=== PATIENT | female | born 1950 | race Caucasian/White ===

== ENCOUNTER → 2016-11-23 | Outpatient (CLI) | payer MEDICARE, MEDICAID ==
[~2016-11-23] MED LIST: AC325T PO; AMLO10TA PO; ASP325T PO; ASP325TEC PO; ASP81CT PO; ASP81TEC PO; ASPI-892 PO; ASPI1CPM PO; ATOR20TA66 PO; ATOR40TA PO; ATOR80TA2 PO; Amlodipine Besylate PO; BISA5TAB8 PO; CLOP75TA28 PO; CLPD75T PO; CTLP20T; CYCL5TAB PO; DICY20TA10 PO; ENLP10T PO; ESCI20TA PO; ESCI20TA2 PO; ESCI20TA38 PO; EST.625T; EST1.25T PO; ESTR0.9T PO; ESTR1TAB24 PO; FLUT1DIS27 IH; FLUT1DIS4 IH; GLIP10TA13 PO; HYDR-3714 PO; HYDR-3816 PO; HYDR118S10 PO; HYDR25CA PO; HYDR25CA5 PO; IBP600T1 PO; IPRA3AMP11 INH; IRB150T PO; IRBE300T9 PO; LEVO200T30 PO; LVT.1T PO; MAGN-47 PO; MAGN400T6 PO; MECL-124 PO; MELO7.5T46 PO; METF500T4 PO; METO-272 PO; METO50TA7 PO; MONT10TA21 PO; MTP25TSR PO; NF-ESOM40C PO; NFPRILOC40 PO; OMEP-10 PO; ONDA-42 SL; ONDA4TAB11 PO; PANT40TA PO; PEG4000S4 PO; PNT40TEC PO; PRED20TA PO; PROM25TA14 PO; RT-COMBINH IH; SCOP1PAT TD; SCP1.5TD TD; TRAM50TA2 PO; TRAZ-144 PO; TRZ50T PO; ZLP10T PO
--- OUTSIDE RECORDS SUMMARY | 2016-11-23 13:58 | XMS REPORT | Continuity of Care Document ---
Author Author [facility] Organization [facility] Address Unknown Phone Unavailable Care Team Providers Care Internet Architect Name Role Phone Self, Referral PCP Unavailable Source Comments Some departments are not documenting in the electronic medical record. If you do not see the information that you expected, contact Release of Information in the Health Information Management department at [phone] for further assistance in locating additional records.[facility] Active Allergies and Adverse Reactions No Known Allergies Current Medications Prescription Sig. Disp. Refills Start End Date Status Date irbesartan (AVAPRO) 300 Take 300 mg by mouth at Active mg PO tablet bedtime daily. omeprazole DR(+) Take 20 mg by mouth Active (PRILOSEC) 20 mg PO daily. capsule escitalopram (LEXAPRO) 10 Take 20 mg by mouth Active mg PO tablet daily. aspirin 81 mg PO chew Take 81 mg by mouth Active tablet daily. estradiol (ESTRACE) 1 mg Take 1 mg by mouth daily. Active PO tablet HYDROCODONE Take by mouth four times Active BIT/HOMATROPINE a day while awake as (HYDROCODONE COMPOUND PO) needed. 7.5/325 mg ZOLPIDEM TARTRATE (AMBIEN Take 10 mg by mouth at Active PO) bedtime daily. Active Problems Not on file Social History Tobacco Use Types Packs/Day Years Used Date Never Assessed Last Filed Vital Signs Vital Sign Reading Time Taken Blood Pressure 144/92 06/03/2011 3:15 PM CDT Pulse 87 06/03/2011 3:15 PM CDT Temperature 36.4 C (97.5 F) 06/03/2011 1:15 PM CDT Respiratory Rate - - Height 1.626 m (5' 4") 06/03/2011 1:15 PM CDT Weight 81.647 kg (180 lb) 06/03/2011 1:15 PM CDT Body Mass Index 30.88 06/03/2011 1:15 PM CDT Oxygen Saturation 99% 06/03/2011 3:15 PM CDT Plan of Care Health Maintenance Due Date Last Done Comments Physical (Comprehensive) 1955 Exam Pertussis Vaccine 1959 Tetanus Vaccine 1965 Breast Cancer Screening 1988 Colorectal Cancer 1998 Screening Shingles Vaccine 2008 Osteoporosis Screening 2013 Prevnar/Pneumovax (#1) 2013 Influenza Vaccine 05/07/2016 Results from Last 3 Months Not on file
--- NOTE | 2016-11-23 14:37 | Diagnostic Imaging Report ---
EXAMINATION: Right lower extremity duplex venous ultrasound. TECHNIQUE: DVT protocol. Multiple sonographic images with color Doppler and waveform interrogation were performed of the right lower extremity veins with compression and augmentation maneuvers. INDICATION: Right leg pain. FINDINGS: The right lower extremity veins from the groin to below the knee veins were examined with normal color-flow, compressibility and normal waveform demonstrated. The great saphenous vein is patent. IMPRESSION: No evidence of DVT in the right lower extremity. Dictated by: Dictated on workstation # [id number]
== END ==
LOC: RAD 13:55
PROVIDERS: ATTEND Physician Assistant
DX: M79.661 Pain in right lower leg (principal); I63.8 Other cerebral infarction; R07.9 Chest pain, unspecified; I10 Essential (primary) hypertension; E78.2 Mixed hyperlipidemia

== ENCOUNTER 2016-12-29 12:58 | Emergency (ER) | payer MEDICARE, MEDICAID ==
[~2016-12-29] VITALS: Ht 165.1 cm; Wt 81.6 kg
[~2016-12-29 12:58] MED LIST changes: -CYCL5TAB PO; -MELO7.5T46 PO; -TRAM50TA2 PO
--- NOTE | 2016-12-29 13:37 | ED Fall/Injury ---
General Chief Complaint: Trauma-Non Activation Stated Complaint: FALL BACK/LEG/HEAD INJURY Nursing Triage Note: Pt abulated into ed with daughter without difficulty. Pt states she fell in her bathtub and hit the back of her head. pt complains of head, neck, right leg pain. denies loss of conciousness. Pt called her daughter, daughter states she arrived about 10 minutes later. pt immediately put in c-collar and lying in supine position. Source: patient, family, RN notes reviewed Exam Limitations: no limitations History of Present Illness Time seen by provider: 13:32 Initial Comments As above and below. Denies any LOC. Occurred: other (2 days ago) Severity: severe (05/16) Injuries/Pain Location: head, neck, back, other (B/L hips) Context: slipped Modifying Factors: Worse With Movement, Improves With Rest Associated Symptoms (Fall): Headache, Neck Pain, Trouble Walking Allergies and Home Medications Allergies Coded Allergies: enalapril (Verified Allergy, Unknown, RASH, 01/21/15) morphine (Verified Allergy, Unknown, RASH, 01/21/15) pneumococcal vaccine (Verified Allergy, Unknown, 01/21/15) Home Medications Aspirin 81 Mg Tabec, 81 MG PO DAILY, (Reported) Atorvastatin Calcium 80 Mg Tablet, 40 MG PO DAILY, (Reported) Clopidogrel Bisulfate 75 Mg Tablet, 75 MG PO DAILY, (Reported) Cyclobenzaprine HCl 5 Mg Tablet, 5 MG PO Q8H PRN for SPASMS, #30 Ref 0 Prescribed by: YOEL SENA on 12/29/16 1513 Escitalopram Oxalate 20 Mg Tablet, 20 MG PO DAILY, (Reported) Fluticasone/Salmeterol 1 Each Disk.w.dev, 0 IH BID, (Reported) 1 PUFF Glipizide 10 Mg Tablet, 10 MG PO DAILY, (Reported) Hydrocodone Bit/Acetaminophen 1 Tab Tablet, 1 TAB PO QID PRN for PAIN, (Reported ) Hydroxyzine Pamoate 25 Mg Capsule, 25 MG PO Q6H, (Reported) Meloxicam 7.5 Mg Tablet, 7.5 MG PO Q12H, #30 Ref 0 Prescribed by: YOEL SENA on 12/29/16 1513 Metformin Hcl 500 Mg Tablet, 500 MG PO BID, (Reported) Metoprolol Succinate 50 Mg Tab.sr.24h, 50 MG PO DAILY, (Reported) Pantoprazole Sodium 40 Mg Tablet.dr, 40 MG PO DAILY, (Reported) Promethazine HCl 25 Mg Tablet, 25 MG PO Q6H PRN for NAUSEA/VOMITING, #10 Prescribed by: RUSSELL SMITH on 05/31/16 1247 Tramadol HCl 50 Mg Tablet, 50 MG PO Q6H PRN for break fhru pain, #20 Ref 0 Prescribed by: YOEL SENA on 12/29/16 1514 Trazodone Hcl 50 Mg Tablet, 50 MG PO HS, (Reported) Constitutional: see HPI Ears, Nose, Mouth, Throat: see HPI ((+) posterior head pain) : No Musculoskeletal: see HPI, back pain, neck pain, other (B/L hip pain) Psychiatric/Neurological: See HPI, Headache All Other Systems Reviewed Negative Unless Noted: Yes (Negative excepted noted.) Past [id number]-Zyuscm-Olygsb Hx Patient Social History Alcohol Use: Denies Use Recreational Drug Use: No Smoking Status: Never a Smoker Former Smoker/When Quit: May 30, 1970 2nd Hand Smoke Exposure: No Recent Foreign Travel: No Contact w/Someone Who Travel: No Recent Infectious Disease Expo: No Recent Hopitalizations: Yes Immunizations Up To Date Tetanus Booster (TDap): Unknown PED Vaccines UTD: Yes Date of Pneumonia Vaccine: Feb 15, 2007 Date of Influenza Vaccine: May 22, 2012 Surgeries HX Surgeries: Yes (LINQ Reveal implantation) Surgeries: Defibrillator, Gallbladder, Hysterectomy Respiratory Hx Respiratory Disorders: Yes Respiratory Disorders: Asthma, Pneumonia Cardiovascular Hx Cardiac Disorders: Yes (cva X2, linx recording, 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) Cardiac Disorders: Deep Vein Thrombosis, High Cholesterol, Hypertension Neurological Hx Neurological Disorders: Yes (CVA with memory issues, poor vision, dizziness) Neurological Disorders: Stroke Reproductive System Hx Reproductive Disorders: Yes (HYSTERECTOMY) Sexually Transmitted Disease: No HIV/AIDS: 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 Genitourinary Hx Genitourinary Disorders: Yes Genitourinary Disorders: Kidney Infection, UTI-Chronic Gastrointestinal Hx Gastrointestinal Disorders: Yes Gastrointestinal Disorders: Gastroesophageal Reflux, Chronic Constipation, Esophageal Varices, Irritable Bowel Musculoskeletal Hx Musculoskeletal Disorders: No (BACK SURGERY) Musculoskeletal Disorders: Arthritis Endocrine Hx Endocrine Disorders: Yes Endocrine Disorders: Hypothyroidsim, Diabetes, Non-Insulin dep HEENT HX ENT Disorders: Yes ("poor vision" from CVA) Loss of Vision: Bilateral Hearing Impairment: Denies Cancer Hx Cancer: No Psychosocial Hx Psychiatric Problems: Yes Behavioral Health Disorders: Anxiety, Depression Integumentary HX Skin/Integumentary Disorder: No Blood Transfusions Hx Blood Disorders: No Adverse Reaction to a Blood Tr: No Family Medical History Significant Family History: Heart Disease, Diabetes Family Medial History: Family history: Cardiovascular disease 19 FATHER 19 MOTHER G8 BROTHER Family history: Diabetes mellitus 19 MOTHER G8 BROTHER G8 BROTHER G8 SISTER G8 SISTER G8 SISTER Physical Exam Vital Signs Capillary Refill : Less Than 3 Seconds General Appearance: WD/WN, mild distress HEENT: PERRL/EOMI, normal ENT inspection, pharynx normal Neck: tender lateral Cardiovascular: regular rate, rhythm Respiratory: no respiratory distress Rectal: deferred Back: decreased range of motion, muscle spasm, other (paravertebral tenderness cervical, thoracic, and lumbar spines (R>L)) Extremities: other (B/L greater trochanter tenderness c/ palpation; no shortening or external rotation noted of BLE.) Neurologic/Psychiatric: no motor/sensory deficits, alert, oriented x 3 Skin: warm/dry Raj Coma Score Best Eye Response: (4) Open Spontaneously Best Verbal Response: (5) Oriented Best Motor Response: (6) Obeys Commands Raj Total: 15 Progress/Results/Core Measures Results/Orders My Orders Orders - YOEL SENA DO Fentanyl Injection (Sublimaze Injection (12/29/16 13:45) Ct Head Wo (12/29/16 13:38) Ct Cerv/Thoracic/Lumbar Wo (12/29/16 13:38) Pelvis/Elton Hips 5> Views (12/29/16 13:38) Ketorolac Injection (Toradol Injection) (12/29/16 14:45) Im/Sub-Q Injection Non-Ab Ed (12/29/16 ) Medications Given in ED Vital Signs/I&O Blood Pressure Mean: 111 Diagnostic Imaging Diagonstic Imaging: Xray, CT Plain Films/CT/US/NM/MRI: c-spine (nothing acute), pelvis, hip (negative for anything acute), head Departure Impression Impression: Primary Impression: Fall Additional Impressions: Contusion of head Sprain cervical, thoracic, and lumbar spines Contusion pelvis/hips Disposition: 01 HOME, SELF-CARE Condition: Stable Departure-Patient Inst. Decision time for Depature: 15:08 Referrals: IRASEMA SMITH MD (PCP/Family) Primary Care Physician Patient Instructions: Contusion (DC), Knee Sprain (DC), Low Back Pain (DC) Scripts Tramadol HCl (Tramadol HCl) 50 Mg Tablet 50 MG PO Q6H Y for break fhru pain, #20 TAB 0 Refills Prov: YOEL SENA DO 12/29/16 Cyclobenzaprine HCl (Cyclobenzaprine HCl) 5 Mg Tablet 5 MG PO Q8H Y for SPASMS, #30 TAB 0 Refills Prov: YOEL SENA DO 12/29/16 Meloxicam (Meloxicam) 7.5 Mg Tablet 7.5 MG PO Q12H for Pain, #30 TAB 0 Refills Prov: YOEL SENA DO 12/29/16 YOEL SENA DO Dec 29, 2016 13:37
[2016-12-29] MEDS ORDERED: fentaNYL INJECTION 100 MCG/2 ML AMP IM ONE (13:45)
--- NOTE | 2016-12-29 14:26 | Diagnostic Imaging Report ---
PROCEDURE: CT head without contrast. TECHNIQUE: Multiple contiguous axial images were obtained through the brain without the use of intravenous contrast. INDICATION: Head injury from a fall There is encephalomalacic change in the left occipital lobe unchanged from prior exam dated 02/11/2016. There are no masses or hemorrhages. There are no extra-axial fluid collections. There are no skull fractures seen. 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 There is no acute abnormality seen. Dictated by: Dictated on workstation # [id number]
--- NOTE | 2016-12-29 14:43 | Diagnostic Imaging Report ---
INDICATION: Hip injury from a fall AP view pelvis and 2 views of each hip were obtained. These show no fracture, dislocation or other acute abnormalities. IMPRESSION: Negative pelvis and bilateral hips. Dictated by: Dictated on workstation # [id number]
[2016-12-29] MEDS ORDERED: KETOROLAC 30 MG/ML VIAL IM ONE (14:45)
--- NOTE | 2016-12-29 14:52 | Diagnostic Imaging Report ---
CT cervical, thoracic and lumbar spine without intravenous contrast. Axial coronal and sagittal reconstructions are performed. FINDINGS: CT cervical spine: There is reversal of the lordotic curvature. The vertebral body heights are preserved. There is disc herniation and moderate disc height loss at C3/4 level with suggested underlying spinal canal stenosis at this level. The anterior fusion hardware involving C4-C6 is seen with solid osseous fusion at these levels noted between the vertebral bodies. The facet joints are not fused. There is good alignment of the facet joints however. Remaining posterior osteophytes at the upper endplate level of C6 is seen and prominent posterior osteophytes at C6/7 is seen resulting in mild to moderate spinal canal stenosis reducing the AP dimension of the spinal canal to 8 mm. There is no widening of the predental space. There is satisfactory alignment of the lateral masses of C1 and C2 and atlantooccipital joints. No fracture is seen. CT thoracic spine: There is satisfactory alignment at the posterior spinal line and at the facet joints. The vertebral body heights are preserved. Mild degenerative changes at the endplates with Schmorl's node at multiple levels. Minimal posterior osteophytes at T6-7, T7/8 and T8/9 levels seen with no significant spinal canal stenosis suggested. No fracture is seen. CT lumbar spine: The vertebral body heights are preserved. There is no pars fracture. There is significant disc height loss at L5/S1 level. The alignment of the posterior spinal line and the facet joints is satisfactory. No fracture is seen. IMPRESSION: CT cervical spine: Post anterior fusion changes involving C4-C6 levels seen. There is suggestion of spinal canal stenosis at C3/4 and at C6/7 levels which can be better evaluated with MRI or CT myelogram if needed. No fracture is seen. CT thoracic spine: Mild degenerative changes. No fracture seen. CT lumbar spine: Disc degenerative change at L5/S1 level. No fracture is seen. Dictated by: Dictated on workstation # [id number]
[2016-12-29] MEDS ORDERED: CYCL5TAB PO (15:13)
[2016-12-29] MEDS ORDERED: MELO7.5T46 PO (15:13)
[2016-12-29] MEDS ORDERED: TRAM50TA2 PO (15:14)
[2016-12-29 15:27] VITALS: BP 147/95
== END 2016-12-29 15:27 | disposition home or self-care (01) ==
LOC: EDUNIT# 12:58 → ER 13:01
DX: S13.4XXA Sprain of ligaments of cervical spine, initial encounter (principal); S33.5XXA Sprain of ligaments of lumbar spine, initial encounter; S23.3XXA Sprain of ligaments of thoracic spine, initial encounter; S30.0XXA Contusion of lower back and pelvis, initial encounter; S00.93XA Contusion of unspecified part of head, initial encounter; M47.817 Spondylosis without myelopathy or radiculopathy, lumbosacral region; I10 Essential (primary) hypertension; E11.9 Type 2 diabetes mellitus without complications; Z79.84 Long term (current) use of oral hypoglycemic drugs; Z79.02 Long term (current) use of antithrombotics/antiplatelets; Z79.82 Long term (current) use of aspirin; Z95.810 Presence of automatic (implantable) cardiac defibrillator; W18.2XXA Fall in (into) shower or empty bathtub, initial encounter; Y92.002 Bathroom of unspecified non-institutional (private) residence as the place of occurrence of the external cause; Y93.E1 Activity, personal bathing and showering; Y99.8 Other external cause status
CPT/HCPCS: 70450; 72125; 72128; 72131; 73523; 96372; 99283

== ENCOUNTER 2017-01-18 15:40 | Emergency (ER) | payer MEDICARE, MEDICAID ==
[~2017-01-18] VITALS: Ht 165.1 cm; Wt 81.7 kg
[~2017-01-18 15:40] MED LIST changes: +CYCL5TAB PO; +MELO7.5T46 PO; +TRAM50TA2 PO
[2017-01-18] MEDS ORDERED: ONDANSETRON 4 MG/2 ML (SDV) Z0FRAN IVP ONE (15:45)
--- NOTE | 2017-01-18 15:49 | ED Abdominal Pain ---
General Chief Complaint: Dizziness/Syncope Stated Complaint: FALLS/SYNCOPE Source of Information: Patient Exam Limitations: No Limitations History of Present Illness Time Seen By Provider: 15:49 Initial Comments To ER per EMS with reports of nausea and vomiting for the past few days. She was over at the walk-in clinic when she began vomiting and subsequent passed out while vomiting. She reports some diffuse abdominal pain. She states that she is passing some gas. She took a laxative yesterday and had a large bowel movement.No fevers. Timing/Duration: 2-3 Days Severity/Quality: Moderate Location: Generalized Abdomen Radiation: No Radiation Activities at Onset: None Associated Symptoms: Nausea/Vomiting Allergies and Home Medications Allergies Coded Allergies: enalapril (Verified Allergy, Unknown, RASH, 01/21/15) morphine (Verified Allergy, Unknown, RASH, 01/21/15) pneumococcal vaccine (Verified Allergy, Unknown, 01/21/15) Home Medications Aspirin 81 Mg Tabec, 81 MG PO DAILY, (Reported) Atorvastatin Calcium 80 Mg Tablet, 40 MG PO DAILY, (Reported) Clopidogrel Bisulfate 75 Mg Tablet, 75 MG PO DAILY, (Reported) Cyclobenzaprine HCl 5 Mg Tablet, 5 MG PO Q8H PRN for SPASMS, #30 Ref 0 Prescribed by: YOEL SENA on 12/29/161512 Escitalopram Oxalate 20 Mg Tablet, 20 MG PO DAILY, (Reported) Fluticasone/Salmeterol 1 Each Disk.w.dev, 0 IH BID, (Reported) 1 PUFF Glipizide 10 Mg Tablet, 10 MG PO DAILY, (Reported) Hydrocodone Bit/Acetaminophen 1 Tab Tablet, 1 TAB PO QID PRN for PAIN, (Reported ) Hydroxyzine Pamoate 25 Mg Capsule, 25 MG PO Q6H, (Reported) Meloxicam 7.5 Mg Tablet, 7.5 MG PO Q12H, #30 Ref 0 Prescribed by: YOEL SENA on 12/29/161512 Metformin Hcl 500 Mg Tablet, 500 MG PO BID, (Reported) Metoprolol Succinate 50 Mg Tab.sr.24h, 50 MG PO DAILY, (Reported) Pantoprazole Sodium 40 Mg Tablet.dr, 40 MG PO DAILY, (Reported) Prochlorperazine Maleate 5 Mg Tablet, 5 MG PO Q8H PRN for NAUSEA/VOMITING-1ST LINE, #10 Prescribed by: ROSANA ROSADO on 01/18/17 1818 Promethazine HCl 25 Mg Tablet, 25 MG PO Q6H PRN for NAUSEA/VOMITING, #10 Prescribed by: RUSSELL SMITH on 05/31/16 1247 Tramadol HCl 50 Mg Tablet, 50 MG PO Q6H PRN for break fhru pain, #20 Ref 0 Prescribed by: YOEL SENA on 12/29/16 1514 Trazodone Hcl 50 Mg Tablet, 50 MG PO HS, (Reported) Review of Systems Constitutional: see HPI EENTM: No Symptoms Reported Respiratory: No Symptoms Reported Cardiovascular: No Symptoms Reported Gastrointestinal: See HPI, Abdominal Pain, Denies Constipated, Denies Diarrhea , Nausea, Vomiting Genitourinary: No Symptoms Reported Musculoskeletal: no symptoms reported Skin: no symptoms reported Psychiatric/Neurological: No Symptoms Reported Endocrine: No Symptoms Reported Hematologic/Lymphatic: No Symptoms Reported Past Azpuswu-Necrbh-Bldkkr Hx Patient Social History Former Smoker/When Quit: May 30, 1970 2nd Hand Smoke Exposure: No Recent Hopitalizations: Yes Immunizations Up To Date Tetanus Booster (TDap): Unknown PED Vaccines UTD: Yes Date of Pneumonia Vaccine: Feb 15, 2007 Date of Influenza Vaccine: May 22, 2012 Surgeries HX Surgeries: Yes (LINQ Reveal implantation) Surgeries: Defibrillator, Gallbladder, Hysterectomy Respiratory Hx Respiratory Disorders: Yes Respiratory Disorders: Asthma, Pneumonia Cardiovascular Hx Cardiac Disorders: Yes (cva X2, linx recording, 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) Cardiac Disorders: Deep Vein Thrombosis, High Cholesterol, Hypertension Neurological Hx Neurological Disorders: Yes (CVA with memory issues, poor vision, dizziness) Neurological Disorders: Stroke Reproductive System Hx Reproductive Disorders: Yes (HYSTERECTOMY) Sexually Transmitted Disease: No HIV/AIDS: No [employer] History: Hysterectomy Genitourinary Hx Genitourinary Disorders: Yes Genitourinary Disorders: Kidney Infection, UTI-Chronic Gastrointestinal Hx Gastrointestinal Disorders: Yes Gastrointestinal Disorders: Gastroesophageal Reflux, Chronic Constipation, Esophageal Varices, Irritable Bowel Musculoskeletal Hx Musculoskeletal Disorders: No (BACK SURGERY) Musculoskeletal Disorders: Arthritis Endocrine Hx Endocrine Disorders: Yes Endocrine Disorders: Hypothyroidsim, Diabetes, Non-Insulin dep HEENT HX ENT Disorders: Yes ("poor vision" from CVA) Loss of Vision: Bilateral Hearing Impairment: Denies Cancer Hx Cancer: No Psychosocial Hx Psychiatric Problems: Yes Behavioral Health Disorders: Anxiety, Depression Integumentary HX Skin/Integumentary Disorder: No Blood Transfusions Hx Blood Disorders: No Adverse Reaction to a Blood Tr: No Family Medical History Significant Family History: Heart Disease, Diabetes Family Medial History: Family history: Cardiovascular disease 19 FATHER 19 MOTHER G8 BROTHER Family history: Diabetes mellitus 19 MOTHER G8 BROTHER G8 BROTHER G8 SISTER G8 SISTER G8 SISTER Physical Exam Vital Signs VS - Last 72 Hours, by Label 01/18/17 15:43 Temp 97.5 Pulse 75 Resp 18 B/P (MAP) 139/85 Pulse Ox 100 O2 Delivery Room Air Capillary Refill : General Appearance: WD/WN, no apparent distress HEENT: PERRL/EOMI, normal ENT inspection Respiratory: normal breath sounds, no respiratory distress, no accessory muscle use Gastrointestinal: normal bowel sounds, non tender, soft Extremities: normal range of motion, non-tender Neurologic/Psychiatric: alert, normal mood/affect, oriented x 3 Skin: normal color, warm/dry Progress/Results/Core Measures Results/Orders Lab Results Laboratory Tests Test 01/18/17 15:50 01/18/17 16:15 Range/Units White Blood Count 9.2 4.3-11.0 10^3/uL Red Blood Count 3.79 L 4.35-5.85 10^6/uL Hemoglobin 11.6 11.5-16.0 G/DL Hematocrit 35 35-52 % Mean Corpuscular Volume 92 80-99 FL Mean Corpuscular Hemoglobin 31 25-34 PG Mean Corpuscular Hemoglobin Concent 33 32-36 G/DL Red Cell Distribution Width 13.6 10.0-14.5 % Platelet Count 252 130-400 10^3/uL Mean Platelet Volume 9.6 7.4-10.4 FL Neutrophils (%) (Auto) 63 42-75 % Lymphocytes (%) (Auto) 28 12-44 % Monocytes (%) (Auto) 7 0-12 % Eosinophils (%) (Auto) 1 0-10 % Basophils (%) (Auto) 0 0-10 % Neutrophils # (Auto) 5.8 1.8-7.8 X 10^3 Lymphocytes # (Auto) 2.6 1.0-4.0 X 10^3 Monocytes # (Auto) 0.7 0.0-1.0 X 10^3 Eosinophils # (Auto) 0.1 0.0-0.3 10^3/uL Basophils # (Auto) 0.0 0.0-0.1 10^3/uL Sodium Level 141 135-145 MMOL/L Potassium Level 4.0 3.6-5.0 MMOL/L Chloride Level 105 98-107 MMOL/L Carbon Dioxide Level 29 21-32 MMOL/L Anion Gap 7 5-14 MMOL/L Blood Urea Nitrogen 8 7-18 MG/DL Creatinine 0.88 0.60-1.30 MG/DL Estimat Glomerular Filtration Rate > 60 BUN/Creatinine Ratio 9 Glucose Level 143 H 70-105 MG/DL Calcium Level 9.2 8.5-10.1 MG/DL Total Bilirubin 0.5 0.1-1.0 MG/DL Aspartate Amino Transf (AST/SGOT) 20 5-34 U/L Alanine Aminotransferase (ALT/SGPT) 14 0-55 U/L Alkaline Phosphatase 61 40-136 U/L Troponin I < 0.30 <0.30 NG/ML Total Protein 6.6 6.4-8.2 G/DL Albumin 4.1 3.2-4.5 G/DL Lipase 44 8-78 U/L Urine Color YELLOW Urine Clarity CLEAR Urine pH 8 5-9 Urine Specific Dumont 1.010 L 1.016-1.022 Urine Protein NEGATIVE NEGATIVE Urine Glucose (UA) NEGATIVE NEGATIVE Urine Ketones NEGATIVE NEGATIVE Urine Nitrite NEGATIVE NEGATIVE Urine Bilirubin NEGATIVE NEGATIVE Urine Urobilinogen NORMAL NORMAL MG/DL Urine Leukocyte Esterase NEGATIVE NEGATIVE Urine RBC (Auto) NEGATIVE NEGATIVE Urine RBC NONE /HPF Urine WBC NONE /HPF Urine Squamous Epithelial Cells RARE /HPF Urine Crystals NONE /LPF Urine Bacteria NEGATIVE /HPF Urine Casts NONE /LPF Urine Mucus NEGATIVE /LPF Urine Culture Indicated NO My Orders Orders - ROSANA ROSADO APRN Cbc With Automated Diff (01/18/17 15:44) Troponin I (01/18/17 15:44) Ekg Tracing (01/18/17 15:44) Ua Culture If Indicated (01/18/17 15:44) Comprehensive Metabolic Panel (01/18/17 15:44) Lipase (01/18/17 15:44) Saline Lock/Iv-Start (01/18/17 15:44) Ondansetron Injection (Zofran Injectio (01/18/17 15:45) Chest 1 View, Ap/Pa Only (01/18/17 15:46) Lactated Ringers (Lr 1000 Ml Iv Solution (01/18/17 16:00) Ct Abdomen/Pelvis Wo (01/18/17 15:57) Ct Head Wo (01/18/17 17:24) Diphenhydramine Injection (Benadryl Inje (01/18/17 17:30) Prochlorperazine Injection (Compazine In (01/18/17 17:30) Medications Given in ED Current Medications Medications Dose Ordered Sig/Susie Route Start Time Stop Time Status Last Admin Dose Admin Diphenhydramine HCl 12.5 mg ONCE ONCE IVP 01/18/17 17:30 01/18/17 17:31 DC 01/18/17 17:31 12.5 MG Ondansetron HCl 8 mg ONCE ONCE IVP 01/18/17 15:45 01/18/17 15:46 DC 01/18/17 16:05 8 MG Prochlorperazine Edisylate 5 mg ONCE ONCE IV 01/18/17 17:30 01/18/17 17:31 DC 01/18/17 17:31 5 MG Vital Signs/I&O Vital Sign - Last 12Hours 01/18/17 15:43 Temp 97.5 Pulse 75 Resp 18 B/P (MAP) 139/85 Pulse Ox 100 O2 Delivery Room Air Diagnostic Imaging Diagonstic Imaging: CT Comments NAME: NINA GAMING [facility] REC#: [id number] PT STATUS: REG ER : 1950 PHYSICIAN: ROSNAA ROSADO APRN ADMIT DATE: 01/18/17/ER Draft Date of Exam:01/18/17 CT ABDOMEN/PELVIS WO PROCEDURE: CT abdomen and pelvis without contrast. TECHNIQUE: Multiple contiguous axial images were obtained through the abdomen and pelvis without the use of intravenous contrast. INDICATION: Nausea and vomiting. Abdominal pain. COMPARISON: 05/27/2016 FINDINGS: Included views of the lung bases are unremarkable. CT ABDOMEN: Small bowel loops are nondistended. Note is made of somewhat thickened and shaggy appearance of the wall of the distal ileum (image 71, series 2). Normal appendix cannot be adequately identified, but there is no pericecal inflammation. Kidneys have an unremarkable noncontrast CT appearance. No renal or ureteral calculi are seen on either side. Additionally, there is no hydroureteronephrosis or other evidence of obstruction. The spleen, adrenal glands, pancreas, and liver have an unremarkable noncontrast CT appearance as well. There is no loculated fluid collection, free fluid, nor free air within the abdomen. No abnormal mesenteric or retroperitoneal adenopathy is seen. There is mild calcified aortic atherosclerosis. Bony structures show no acute abnormalities. CT PELVIS: Urinary bladder is unopacified. No calculi are seen within the urinary bladder. There is a small amount of free fluid within the pelvis. There is no loculated fluid collection or free air. No abnormal lymph nodes are seen. Bony structures show no acute abnormalities. IMPRESSION: 1. Abnormal thickened shaggy appearance to the wall of the distal ileum. This may be artifactual and related to food material within the lumen of the ileum, but also raises concern for focal enteritis. Given its location, this also raises concern for Crohn's disease. Clinical correlation recommended. 2. Small amount of free fluid in the pelvis, which may be related to the above. Dictated on workstation # [id number] Dict: 01/18/17 1755 Trans: 01/18/17 1808 [id number] Interpreted by: HIEN ELIZABETH Electronically signed by: Departure Communication Progress Notes 1818-after Zofran, Benadryl and Compazine patient's vomiting is now gone and she feels much better and would like to go home. Labs are reassuring. Impression Impression: Primary Impression: Vomiting Additional Impression: Vasovagal syncope Disposition: 01 HOME, SELF-CARE Condition: Stable Decision to Admit Reason: Admit from ER (General) Decision to Admit/Date: January 18, 2017 Time/Decision to Admit Time: 18:08 Departure-Patient Inst. Decision time for Depature: 18:17 Referrals: IRASEMA SMITH MD (PCP/Family) Primary Care Physician Patient Instructions: Nausea and Vomiting, Adult Add. Discharge Instructions: 1. Return to ER for any worsening or recurrent symptoms 2. Follow-up with your doctor later this week 3. Nausea medication as needed All discharge instructions reviewed with patient and/or family. Voiced understanding. Scripts Prochlorperazine Maleate (Compazine) 5 Mg Tablet 5 MG PO Q8H Y for NAUSEA/VOMITING-1ST LINE, #10 TAB Prov: ROSANA ROSADO CORONER 01/18/17 Copy Copies To 1: IRASEMA SMITH MD, PETER J APRN January 18, 2017 15:49
[2017-01-18 15:58] LABS: BASOPHILS % (AUTO) 0 % (0-10); EOSINOPHILS # (AUTO) 0.1 10^3/uL (0.0-0.3); EOSINOPHILS % (AUTO) 1 % (0-10); LYMPHOCYTES # (AUTO) 2.6 X 10^3 (1.0-4.0); LYMPHOCYTES % (AUTO) 28 % (12-44); MEAN CORPUSCULAR HEMOGLOBIN 31 PG (25-34); MEAN CORPUSCULAR HGB CONC 33 G/DL (32-36); MEAN CORPUSCULAR VOLUME 92 FL (80-99); MEAN PLATELET VOLUME 9.6 FL (7.4-10.4); MONOCYTES # (AUTO) 0.7 X 10^3 (0.0-1.0); MONOCYTES % (AUTO) 7 % (0-12); NEUTROPHILS # (AUTO) 5.8 X 10^3 (1.8-7.8); NEUTROPHILS % (AUTO) 63 % (42-75); PLATELET COUNT 252 10^3/uL (130-400); RED BLOOD COUNT 3.79 10^6/uL (4.35-5.85); RED CELL DISTRIBUTION WIDTH 13.6 % (10.0-14.5); WHITE BLOOD COUNT 9.2 10^3/uL (4.3-11.0)
[2017-01-18] MEDS ORDERED: LACTATED RINGERS 1,000 ML IV SCH (16:00)
[2017-01-18 16:21] LABS: ALANINE AMINOTRANSFERASE 14 U/L (0-55); ALBUMIN 4.1 G/DL (3.2-4.5); ANION GAP 7 MMOL/L (5-14); ASPARTATE AMINO TRANSFERASE 20 U/L (5-34); BILIRUBIN,TOTAL 0.5 MG/DL (0.1-1.0); BLOOD UREA NITROGEN 8 MG/DL (7-18); BUN/CREATININE RATIO 9; CALCIUM 9.2 MG/DL (8.5-10.1); CARBON DIOXIDE 29 MMOL/L (21-32); CHLORIDE 105 MMOL/L (98-107); CREATININE SERUM 0.88 MG/DL (0.60-1.30); GFR ESTIMATED > 60; GLUCOSE 143 MG/DL (70-105); LIPASE 44 U/L (8-78); SODIUM 141 MMOL/L (135-145); TOTAL PROTEIN 6.6 G/DL (6.4-8.2)
[2017-01-18 16:27] LABS: TROPONIN I < 0.30 NG/ML (<0.30)
[2017-01-18 16:30] LABS: BILIRUBIN,URINE NEGATIVE (NEGATIVE); KETONES,URINE NEGATIVE (NEGATIVE); LEUKOCYTE ESTERASE ,URINE NEGATIVE (NEGATIVE); NITRITE,URINE NEGATIVE (NEGATIVE); PH,URINE 8 (5-9); PROTEIN,URINE NEGATIVE (NEGATIVE); UROBILINOGEN,URINE NORMAL (NORMAL)
[2017-01-18 16:39] LABS: SQUAMOUS EPITHELIAL CELL,UR RARE /HPF
--- NOTE | 2017-01-18 16:42 | Diagnostic Imaging Report ---
INDICATION: Congestion.. TECHNIQUE: Single view chest 4:32 PM. CORRELATION STUDY: 2014 FINDINGS: The heart size, mediastinal configuration and pulmonary vascularity are within normal limits. Likely electronic device over the lower midline chest. The lungs are clear with no consolidating infiltrate. There is no significant effusion or pneumothorax. Partial visualization of cervical spinal fusion hardware. Bryant screw over the right humerus. IMPRESSION: 1. No radiographic evidence for acute abnormality of the chest. Dictated by: Dictated on workstation # [id number]
[2017-01-18] MEDS ORDERED: diphenhydrAMINE 50 MG/ML INJ (BENADRYL) IVP ONE (17:30)
[2017-01-18] MEDS ORDERED: PROCHLORPERAZINE 10 MG/2ML INJ (COMPAZINE) IV ONE (17:30)
--- NOTE | 2017-01-18 17:59 | Diagnostic Imaging Report ---
PROCEDURE: CT head without contrast. TECHNIQUE: Multiple contiguous axial images were obtained through the brain without the use of intravenous contrast. INDICATION: Headaches. Blurred vision. Syncope. Fall. COMPARISON: 12/29/2016. FINDINGS: Again identified is large area of old infarct involving the medial margins of the left occipital and left parietal lobes. There is no new loss of wong-white matter junction differentiation to suggest new acute territorial infarct. There are scattered and confluent areas of decreased attenuation within the periventricular and subcortical deep white matter consistent with chronic small vessel ischemic changes. Ventricles and cortical sulci are mildly diffusely prominent consistent with background of age-related parenchymal volume loss. There is no new mass effect or midline shift. There is no evidence of intra- or extra-axial intracranial hemorrhage. No extra-axial masses or fluid collections are seen. Bony calvarium is intact. Evaluation of the paranasal sinuses demonstrates mucosal thickening of the bilateral maxillary sinuses with small air-fluid level on the right. Mastoid air cells are clear. IMPRESSION: 1. No new acute intracranial abnormality. No CT evidence of acute infarct, mass, nor hemorrhage. 2. 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 3. Air-fluid level within the right maxillary sinus. Clinical correlation for underlying acute sinusitis is recommended. Dictated by: Dictated on workstation # [id number]
--- NOTE | 2017-01-18 18:08 | Diagnostic Imaging Report ---
PROCEDURE: CT abdomen and pelvis without contrast. TECHNIQUE: Multiple contiguous axial images were obtained through the abdomen and pelvis without the use of intravenous contrast. INDICATION: Nausea and vomiting. Abdominal pain. COMPARISON: 05/27/2016 FINDINGS: Included views of the lung bases are unremarkable. CT ABDOMEN: Small bowel loops are nondistended. Note is made of somewhat thickened and shaggy appearance of the wall of the distal ileum (image 71, series 2). Normal appendix cannot be adequately identified, but there is no pericecal inflammation. Kidneys have an unremarkable noncontrast CT appearance. No renal or ureteral calculi are seen on either side. Additionally, there is no hydroureteronephrosis or other evidence of obstruction. The spleen, adrenal glands, pancreas, and liver have an unremarkable noncontrast CT appearance as well. There is no loculated fluid collection, free fluid, nor free air within the abdomen. No abnormal mesenteric or retroperitoneal adenopathy is seen. There is mild calcified aortic atherosclerosis. Bony structures show no acute abnormalities. CT PELVIS: Urinary bladder is unopacified. No calculi are seen within the urinary bladder. There is a small amount of free fluid within the pelvis. There is no loculated fluid collection or free air. No abnormal lymph nodes are seen. Bony structures show no acute abnormalities. IMPRESSION: 1. Abnormal thickened shaggy appearance to the wall of the distal ileum. This may be artifactual and related to food material within the lumen of the ileum, but also raises concern for focal enteritis. Given its location, this also raises concern for Crohn's disease. Clinical correlation recommended. 2. Small amount of free fluid in the pelvis, which may be related to the above. Dictated by: Dictated on workstation # [id number]
[2017-01-18] MEDS ORDERED: PROC5TAB52 PO (18:18)
[2017-01-18 18:39] VITALS: BP 117/75
== END 2017-01-18 18:39 | disposition home or self-care (01) ==
LOC: EDUNIT# 15:40 → ER 15:41
DX: R55 Syncope and collapse (principal); R11.2 Nausea with vomiting, unspecified; E11.9 Type 2 diabetes mellitus without complications; I10 Essential (primary) hypertension; Z79.84 Long term (current) use of oral hypoglycemic drugs; Z79.02 Long term (current) use of antithrombotics/antiplatelets; Z79.899 Other long term (current) drug therapy; Z95.810 Presence of automatic (implantable) cardiac defibrillator
CPT/HCPCS: 36415; 70450; 71010; 74176; 80053; 81000; 83690; 84484; 85025; 96361; 96374; 96375

== ENCOUNTER 2017-03-26 15:27 | Observation (INO) | payer MEDICARE, MEDICAID ==
[~2017-03-26] VITALS: Ht 154.9 cm; Wt 81.6 kg
[~2017-03-26 15:27] MED LIST changes: +PROC5TAB52 PO
[2017-03-26] MEDS ORDERED: fentaNYL INJECTION 100 MCG/2 ML AMP IVP ONE (15:45)
[2017-03-26] MEDS ORDERED: NS IV 1000 ML 1,000 ML IV SCH (15:45)
[2017-03-26] MEDS ORDERED: ONDANSETRON 4 MG/2 ML (SDV) Z0FRAN IVP ONE (15:45)
--- NOTE | 2017-03-26 15:52 | ED Headache ---
General Stated Complaint: HEADACHE,VOMITING,EARACHE,ABDOMINAL PAIN Source: patient Exam Limitations: no limitations History of Present Illness Time seen by provider: 15:47 Initial Comments This 66-year-old white female presents with complaint of severe headache and nausea that began today shortly prior to presentation to the emergency department. The patient states that the headache as sharp in quality and severe in intensity. The patient has an associated right-sided earache. The patient denies loss of visual acuity, associated fever or chills, stiff neck, lateralizing or localizing neurologic complaints, palpitations or chest pain, shortness of breath, vomiting or diarrhea. Patient's past medical history of significance includes 2 previous strokes. 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 She has A. fib. She is under the care of Dr. Guillermo and Dr. Abraham. Allergies and Home Medications Allergies Coded Allergies: enalapril (Verified Allergy, Unknown, RASH, 01/21/15) morphine (Verified Allergy, Unknown, RASH, 01/21/15) pneumococcal vaccine (Verified Allergy, Unknown, 01/21/15) Home Medications Aspirin 81 Mg Tabec, 81 MG PO DAILY, (Reported) Atorvastatin Calcium 80 Mg Tablet, 40 MG PO DAILY, (Reported) Clopidogrel Bisulfate 75 Mg Tablet, 75 MG PO DAILY, (Reported) Cyclobenzaprine HCl 5 Mg Tablet, 5 MG PO Q8H PRN for SPASMS, #30 Ref 0 Prescribed by: YOEL SENA on 12/29/16 151 Escitalopram Oxalate 20 Mg Tablet, 20 MG PO DAILY, (Reported) Fluticasone/Salmeterol 1 Each Disk.w.dev, 0 IH BID, (Reported) 1 PUFF Glipizide 10 Mg Tablet, 10 MG PO DAILY, (Reported) Hydrocodone Bit/Acetaminophen 1 Tab Tablet, 1 TAB PO QID PRN for PAIN, (Reported ) Hydroxyzine Pamoate 25 Mg Capsule, 25 MG PO Q6H, (Reported) Meloxicam 7.5 Mg Tablet, 7.5 MG PO Q12H, #30 Ref 0 Prescribed by: YOEL SENA on 12/29/16 1513 Metformin Hcl 500 Mg Tablet, 500 MG PO BID, (Reported) Metoprolol Succinate 50 Mg Tab.sr.24h, 50 MG PO DAILY, (Reported) Pantoprazole Sodium 40 Mg Tablet.dr, 40 MG PO DAILY, (Reported) Prochlorperazine Maleate 5 Mg Tablet, 5 MG PO Q8H PRN for NAUSEA/VOMITING-1ST LINE, #10 Prescribed by: ROSANA ROSADO on 01/18/17 1818 Promethazine HCl 25 Mg Tablet, 25 MG PO Q6H PRN for NAUSEA/VOMITING, #10 Prescribed by: RUSSELL SMITH on 05/31/16 1247 Tramadol HCl 50 Mg Tablet, 50 MG PO Q6H PRN for break fhru pain, #20 Ref 0 Prescribed by: YOEL SENA on 12/29/16 1514 Trazodone Hcl 50 Mg Tablet, 50 MG PO HS, (Reported) Constitutional: No chills, No fever Eyes: Denies Blindness, Denies Photophobia Ears, Nose, Mouth, Throat: see HPI, ear pain Respiratory: No cough, No short of breath Cardiovascular: No chest pain, No palpitations Gastrointestinal: No abdominal pain, No diarrhea, nausea, No vomiting Genitourinary: No dysuria, No frequency Musculoskeletal: No back pain Skin: No rash Psychiatric/Neurological: Depressed Past Kojbfbu-Dkasjs-Hddpzr Hx Patient Social History Former Smoker/When Quit: May 30, 1970 2nd Hand Smoke Exposure: No Recent Foreign Travel: No Contact w/Someone Who Travel: No Recent Hopitalizations: No Immunizations Up To Date Tetanus Booster (TDap): Unknown PED Vaccines UTD: No Date of Pneumonia Vaccine: Feb 15, 2007 Date of Influenza Vaccine: May 22, 2012 Seasonal Allergies Seasonal Allergies: No Surgeries HX Surgeries: Yes (LINQ Reveal implantation) Surgeries: Defibrillator, Gallbladder, Hysterectomy Respiratory Hx Respiratory Disorders: Yes Respiratory Disorders: Asthma Cardiovascular Hx Cardiac Disorders: Yes (cva X2, linx recording, 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) Cardiac Disorders: Deep Vein Thrombosis, High Cholesterol, Hypertension Neurological Hx Neurological Disorders: Yes (CVA with memory issues, poor vision, dizziness) Neurological Disorders: Stroke Reproductive System Hx Reproductive Disorders: Yes (HYSTERECTOMY) Sexually Transmitted Disease: No HIV/AIDS: 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 Genitourinary Hx Genitourinary Disorders: Yes Genitourinary Disorders: Kidney Infection, UTI-Chronic Gastrointestinal Hx Gastrointestinal Disorders: Yes Gastrointestinal Disorders: Gastroesophageal Reflux, Chronic Constipation, Esophageal Varices, Irritable Bowel Musculoskeletal Hx Musculoskeletal Disorders: No (BACK SURGERY) Musculoskeletal Disorders: Arthritis Endocrine Hx Endocrine Disorders: Yes Endocrine Disorders: Hypothyroidsim, Diabetes, Non-Insulin dep HEENT HX ENT Disorders: Yes ("poor vision" from CVA) Loss of Vision: Bilateral Hearing Impairment: Denies Cancer Hx Cancer: No Psychosocial Hx Psychiatric Problems: Yes Behavioral Health Disorders: Anxiety, Depression Integumentary HX Skin/Integumentary Disorder: No Blood Transfusions Hx Blood Disorders: No Adverse Reaction to a Blood Tr: No Reviewed Nursing Assessment Reviewed/Agree w Nursing PMH: Yes Family Medical History Significant Family History: Heart Disease, Diabetes Family Medial History: Family history: Cardiovascular disease 19 FATHER 19 MOTHER G8 BROTHER Family history: Diabetes mellitus 19 MOTHER G8 BROTHER G8 BROTHER G8 SISTER G8 SISTER G8 SISTER Physical Exam Vital Signs Vital Sign - Last 12Hours 03/26/17 15:57 Temp 98.8 Pulse 63 Resp 20 B/P (MAP) 137/80 Pulse Ox 99 O2 Delivery Room Air Capillary Refill : General Appearance: WD/WN, mild distress HEENT: normal ENT inspection Neck: normal inspection Respiratory: lungs clear, normal breath sounds Gastrointestinal: non tender, soft Back: normal inspection Extremities: normal range of motion, non-tender Psychiatric: alert, oriented x 3 Crainal Nerves: normal hearing, normal speech Motor/Sensory: no motor deficit, no sensory deficit Skin: normal color, warm/dry Progress/Results/Core Measures Results/Orders Lab Results Laboratory Tests Test 03/26/17 15:43 Range/Units White Blood Count 9.7 4.3-11.0 10^3/uL Red Blood Count 4.02 L 4.35-5.85 10^6/uL Hemoglobin 12.2 11.5-16.0 G/DL Hematocrit 37 35-52 % Mean Corpuscular Volume 91 80-99 FL Mean Corpuscular Hemoglobin 30 25-34 PG Mean Corpuscular Hemoglobin Concent 33 32-36 G/DL Red Cell Distribution Width 12.4 10.0-14.5 % Platelet Count 208 130-400 10^3/uL Mean Platelet Volume 9.9 7.4-10.4 FL Neutrophils (%) (Auto) 71 42-75 % Lymphocytes (%) (Auto) 21 12-44 % Monocytes (%) (Auto) 7 0-12 % Eosinophils (%) (Auto) 1 0-10 % Basophils (%) (Auto) 0 0-10 % Neutrophils # (Auto) 6.9 1.8-7.8 X 10^3 Lymphocytes # (Auto) 2.0 1.0-4.0 X 10^3 Monocytes # (Auto) 0.7 0.0-1.0 X 10^3 Eosinophils # (Auto) 0.1 0.0-0.3 10^3/uL Basophils # (Auto) 0.0 0.0-0.1 10^3/uL Prothrombin Time 11.7 L 12.2-14.7 SEC INR Comment 0.9 0.8-1.4 Sodium Level 140 135-145 MMOL/L Potassium Level 4.1 3.6-5.0 MMOL/L Chloride Level 103 98-107 MMOL/L Carbon Dioxide Level 23 21-32 MMOL/L Anion Gap 14 5-14 MMOL/L Blood Urea Nitrogen 12 7-18 MG/DL Creatinine 0.79 0.60-1.30 MG/DL Estimat Glomerular Filtration Rate > 60 BUN/Creatinine Ratio 15 Glucose Level 142 H 70-105 MG/DL Calcium Level 8.9 8.5-10.1 MG/DL Total Bilirubin 0.4 0.1-1.0 MG/DL Aspartate Amino Transf (AST/SGOT) 29 5-34 U/L Alanine Aminotransferase (ALT/SGPT) 24 0-55 U/L Alkaline Phosphatase 70 40-136 U/L Total Protein 6.6 6.4-8.2 GM/DL Albumin 4.0 3.2-4.5 GM/DL My Orders Orders - FREDERICK KOVACS MD Cbc With Automated Diff (03/26/17 15:33) Comprehensive Metabolic Panel (03/26/17 15:33) Ns Iv 1000 Ml (Sodium Chloride 0.9%) (03/26/17 15:45) Fentanyl Injection (Sublimaze Injection (03/26/17 15:45) Ondansetron Injection (Zofran Injectio (03/26/17 15:45) Ct Head Wo (03/26/17 15:45) Protime With Inr (03/26/17 15:45) Ekg Tracing (03/26/17 15:56) Saline Lock/Iv-Start (03/26/17 16:08) Medications Given in ED Current Medications Medications Dose Ordered Sig/Susie Route Start Time Stop Time Status Last Admin Dose Admin Fentanyl Citrate 50 mcg ONCE ONCE IVP 03/26/17 15:45 03/26/17 15:47 DC 03/26/17 15:54 50 MCG Ondansetron HCl 4 mg ONCE ONCE IVP 03/26/17 15:45 03/26/17 15:47 DC 03/26/17 15:54 4 MG Vital Signs/I&O Vital Sign - Last 12Hours 03/26/17 15:57 Temp 98.8 Pulse 63 Resp 20 B/P (MAP) 137/80 Pulse Ox 99 O2 Delivery Room Air Progress Note : Time: 17:14 Progress Note The patient's headache and nausea improved with then 50 g of fentanyl and 4 mg of Zofran IV. Workup in the emergency Department included a CT of the head which demonstrated evidence of old but no new strokes. The patient's EKG demonstrated a normal sinus rhythm. The patient was without evidence of lateralizing localizing neurologic abnormalities. The patient is on limited anticoagulant therapy with aspirin and clopidogrel as she is allergic to enalapril. She has seen Dr. Abraham in the past. I visited with Drs. Tavarez and Chemo who were kind enough to admit to an observation bed and who will follow the patient closely for resolution of her symptoms and frequent neurologic checks tonight. An echo of the heart was ordered per Dr. Mclain's request. Departure Communication Time/Spoke to Admitting Phy: 17:[address] Tavarez. Time/Spoke to Consulting Physi: 17:28 Communication/Consulting Dr. Mclain. Impression Impression: Primary Impression: Headache Qualified Codes: R51 - Headache Additional Impression: TIA (transient ischemic attack) Qualified Codes: G45.9 - Transient cerebral ischemic attack, unspecified Disposition: 09 ADMITTED INPATIENT Condition: Improved Decision to Admit Reason: Admit from ER (General) Time/Decision to Admit Time: 17:29 Departure-Patient Inst. Referrals: IRASEMA GUILLERMO MD (PCP/Family) Primary Care Physician FREDERICK KOVACS MD Mar 26, 2017 15:52
[2017-03-26 16:13] LABS: ALANINE AMINOTRANSFERASE 24 U/L (0-55); ANION GAP 14 MMOL/L (5-14); ASPARTATE AMINO TRANSFERASE 29 U/L (5-34); BILIRUBIN,TOTAL 0.4 MG/DL (0.1-1.0); BLOOD UREA NITROGEN 12 MG/DL (7-18); BUN/CREATININE RATIO 15; CALCIUM 8.9 MG/DL (8.5-10.1); CARBON DIOXIDE 23 MMOL/L (21-32); CHLORIDE 103 MMOL/L (98-107); CREATININE SERUM 0.79 MG/DL (0.60-1.30); GFR ESTIMATED > 60; GLUCOSE 142 MG/DL (70-105); POTASSIUM 4.1 MMOL/L (3.6-5.0); SODIUM 140 MMOL/L (135-145); TOTAL PROTEIN 6.6 GM/DL (6.4-8.2)
[2017-03-26 16:16] LABS: BASOPHILS % (AUTO) 0 % (0-10); EOSINOPHILS # (AUTO) 0.1 10^3/uL (0.0-0.3); EOSINOPHILS % (AUTO) 1 % (0-10); LYMPHOCYTES % (AUTO) 21 % (12-44); MEAN CORPUSCULAR HEMOGLOBIN 30 PG (25-34); MEAN CORPUSCULAR HGB CONC 33 G/DL (32-36); MEAN CORPUSCULAR VOLUME 91 FL (80-99); MEAN PLATELET VOLUME 9.9 FL (7.4-10.4); MONOCYTES # (AUTO) 0.7 X 10^3 (0.0-1.0); MONOCYTES % (AUTO) 7 % (0-12); NEUTROPHILS # (AUTO) 6.9 X 10^3 (1.8-7.8); NEUTROPHILS % (AUTO) 71 % (42-75); PLATELET COUNT 208 10^3/uL (130-400); RED BLOOD COUNT 4.02 10^6/uL (4.35-5.85); RED CELL DISTRIBUTION WIDTH 12.4 % (10.0-14.5); WHITE BLOOD COUNT 9.7 10^3/uL (4.3-11.0)
--- NOTE | 2017-03-26 16:17 | Diagnostic Imaging Report ---
Clinical indication: Patient with complaints of head pain on both sides near the ears. Exam: Axial CT scan of the brain performed without IV contrast. Comparison: Head CT without IV contrast dated 01/16/2017. Findings: There is no evidence of acute cerebral infarct, intracranial hemorrhage, or gross mass effect. Stable small chronic cerebral infarct involving the parasagittal left parietal lobe and left occipital lobe regions. There are stable patchy areas of low-attenuation white matter changes in the bilateral parietal lobe white matter regions. Otherwise, the brain parenchymal volume appears appropriate for patient's age. There is no significant midline shift or herniation. There is no evidence of hydrocephalus. The basal cisterns are unremarkable. The skull, extracranial soft tissue, and orbits are unremarkable. There is mild ethmoid sinus disease which has decreased. The previously seen bilateral maxillary sinus disease is not imaged on this exam. The mastoid air cells are clear. Impression: 1: Stable CT scan of the brain with no evidence of acute intracranial process. 2: Stable chronic cerebral infarcts involving the left parietal lobe/occipital lobe regions. 3: Age-related brain parenchymal changes. 4: There is mild ethmoid sinus disease which has decreased compared to the prior study. Dictated by: Dictated on workstation # [id number]
[2017-03-26 16:26] LABS: INR 0.9 (0.8-1.4); PROTHROMBIN TIME PATIENT 11.7 SEC (12.2-14.7)
[2017-03-26] MEDS ORDERED: CATHETER FLUSH 10 ML SYR IV PRN (18:15)
[2017-03-26] MEDS: fentaNYL INJECTION 100 MCG/2 ML AMP IV PRN ×2 (19:43→22:24)
[2017-03-26] MEDS: ONDANSETRON 4 MG/2 ML (SDV) Z0FRAN IV PRN ×2 (19:43→22:24)
[2017-03-26 19:50] VITALS: BP 126/77
[2017-03-26] MEDS: CATHETER FLUSH 10 ML SYR IV SCH (22:24)
[2017-03-27] VITALS: BP 133/79
[2017-03-27] MEDS: fentaNYL INJECTION 100 MCG/2 ML AMP IV PRN ×4 (00:17→10:09)
[2017-03-27 04:00] VITALS: BP 127/68
[2017-03-27] MEDS: CATHETER FLUSH 10 ML SYR IV SCH (05:03)
[2017-03-27 08:00] VITALS: BP 116/58
[2017-03-27] MEDS: ONDANSETRON 4 MG/2 ML (SDV) Z0FRAN IV PRN (08:58)
[2017-03-27] MEDS ORDERED: PROMETHAZINE 25 MG (PHENERGAN) TAB PO PRN (11:00)
[2017-03-27] MEDS ORDERED: NON-FORMULARY MEDICATION 1 EA EA (Cyclobenzaprine HCl 5 MG) PO PRN (11:00)
[2017-03-27] MEDS ORDERED: RX-HYDROCODONE/APAP 5/325 MG #4 TAB PK PO PRN (11:00)
[2017-03-27] MEDS ORDERED: hydrOXYzine (VISTARIL) 25 MG CAP PO SCH (11:00)
[2017-03-27] MEDS ORDERED: RX-TRAMADOL 50 MG (ULTRAM) TAB PPK#4 PO PRN (11:00)
[2017-03-27] MEDS ORDERED: PATIENT MAY USE OWN MEDS, ALL MC SCH (11:00)
[2017-03-27] MEDS ORDERED: MELOXICAM 7.5 MG (MOBIC) TABLET PO SCH (11:00)
[2017-03-27] MEDS ORDERED: PROCHLORPERAZINE MALEATE 5 MG PO PRN (11:00)
[2017-03-27 12:00] VITALS: BP 135/70
--- NOTE | 2017-03-27 12:05 | Short Stay Summary-Hospitalist ---
HPI History of Present Illness: HPI/Chief Complaint CC: Headache with h/o CVA during headache episode HPI: This is a 66-year-old white female clinic patient of Dr. Guillermo that is on hydrocodone 4 times daily chronically for headache syndrome and back pain the presents to the emergency room with complaints of headache similar to when she had a stroke in the past. CT scan was negative and cardiology was consulted who assessed her to already had the reveal device to evaluate for etiology of the prior TIAs and stroke she has had in the past. She is compliant with her Plavix and aspirin regimen and currently she feels well enough and the workup has been negative and cardiology approves discharge and she is okay with going home. She'll follow-up with Dr. Guillermo to evaluate any other treatment regimen that can help her with her chronic headaches. Source: patient, RN/MD Exam Limitations: no limitations Date Seen 03/27/17 Time Seen by Provider: 11:15 Attending Physician Cnade Tavarez Floyd R MD Referring Physician Date of Admission Mar 26, 2017 at 17:37 Home Medications & Allergies Home Medications Reviewed patient Home Medication Reconciliation Form Allergies Allergies Coded Allergies enalapril (Verified Allergy, Unknown, RASH, 01/21/15) morphine (Verified Allergy, Unknown, RASH, 01/21/15) pneumococcal vaccine (Verified Allergy, Unknown, 01/21/15) Past Yxskngw-Zzvzqc-Mdunrz Hx Patient Social History Marrital Status: Employed/Student: retired Alcohol Use: Denies Use Recreational Drug Use: No Smoking Status: Never a Smoker Former smoker/When Quit: May 30, 1970 2nd Hand Smoke Exposure: No Physical Abuse Screen: No Sexual Abuse: No Recent Foreign Travel: No Contact w/other who traveled: No Recent Hopitalizations: No Recent Infectious Disease Expo: No Immunizations Up To Date Tetanus Booster (TDap): Unknown Date of Pneumonia Vaccine: Feb 15, 2007 Date of Influenza Vaccine: May 22, 2012 Seasonal Allergies Seasonal Allergies: No Surgeries HX Surgeries: Yes (LINQ Reveal implantation) Surgeries: Defibrillator, Gallbladder, Hysterectomy Respiratory Hx Respiratory Disorders: Yes Respiratory Disorders: COPD Cardiovascular Hx Cardiovascular Disorders: Yes (cva X2, 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 recording, 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) Cardiac Disorders: Deep Vein Thrombosis, High Cholesterol, Hypertension Neurological Hx Neurological Disorders: Yes (CVA with memory issues, poor vision, dizziness) Neurological Disorders: Stroke Reproductive System Hx Reproductive Disorders: Yes (HYSTERECTOMY) Sexually Transmitted Disease: No HIV/AIDS: No Genitourinary Hx Genitourinary Disorders: Yes Genitourinary Disorders: Kidney Infection, UTI-Chronic Gastrointestinal Hx Gastrointestinal Disorders: Yes Gastrointestinal Disorders: Gastroesophageal Reflux, Chronic Constipation, Irritable Bowel Musculoskeletal Hx Musculoskeletal Disorders: No (BACK SURGERY) Musculoskeletal Disorders: Arthritis Endocrine Hx Endocrine Disorders: Yes Endocrine Disorders: Hypothyroidsim, Diabetes, Non-Insulin dep HEENT HX ENT Disorders: Yes ("poor vision" from CVA) Loss of Vision: Bilateral Hearing Impairment: Denies Cancer Hx Cancer: No Psychosocial Hx Psychiatric Problems: Yes Behavioral Health Disorders: Anxiety, Depression Integumentary HX Skin/Integumentary Disorder: No Blood Transfusions Hx Blood Disorders: No Adverse Reaction to a Blood Tr: No Reviewed Nursing Assessment Reviewed/Agree w Nursing PMH: Yes Family Medical History Significant Family History: Heart Disease, Diabetes Family Hx: Family history: Cardiovascular disease 19 FATHER 19 MOTHER G8 BROTHER Family history: Diabetes mellitus 19 MOTHER G8 BROTHER G8 BROTHER G8 SISTER G8 SISTER G8 SISTER Review of Systems Constitutional: see HPI, weakness EENTM: no symptoms reported Respiratory: no symptoms reported Cardiovascular: no symptoms reported Gastrointestinal: no symptoms reported Genitourinary: no symptoms reported Musculoskeletal: back pain Skin: no symptoms reported Psychiatric/Neurological: Headache All Other Systems Reviewed Negative Unless Noted: Yes Physical Exam Physical Exam Vital Signs Vital Sign - Last 12Hours 03/26/17 15:57 Temp 98.8 Pulse 63 Resp 20 B/P (MAP) 137/80 Pulse Ox 99 O2 Delivery Room Air Capillary Refill : Less Than 3 Seconds General Appearance: No Apparent Distress, WD/WN, Chronically ill Eyes: Bilateral Eye Normal Inspection, Bilateral Eye PERRL HEENT: PERRL/EOMI, Normal ENT Inspection, Pharynx Normal Neck: Full Range of Motion, Normal Inspection, Non Tender, Supple, Carotid Bruit Respiratory: Chest Non Tender, Lungs Clear, Normal Breath Sounds, No Accessory Muscle Use, No Respiratory Distress Cardiovascular: Regular Rate, Rhythm, No Edema, No Gallop, No JVD, No Murmur, Normal Peripheral Pulses Gastrointestinal: Normal Bowel Sounds, No Organomegaly, No Pulsatile Mass, Non Tender, Soft Back: Normal Inspection, No CVA Tenderness, No Vertebral Tenderness Extremity: Normal Capillary Refill, Normal Inspection, Normal Range of Motion, Non Tender, No Calf Tenderness, No Pedal Edema Neurologic/Psychiatric: Alert, Oriented x3, No Motor/Sensory Deficits, Normal Mood/Affect Skin: Normal Color, Warm/Dry Lymphatic: No Adenopathy Results Results/Procedures Lab Laboratory Tests 03/26/17 15:43 Short Stay Diagnosis Discharge Diagnosis-Short Stay Admission Diagnosis Assessment: Acute on chronic headache syndrome but similar pain to when she had stroke previously maintained on Plavix and aspirin and has reveal device to evaluate source of recurrent strokes Chronic back pain Narcotic dependency Final Discharge Diagnosis Assessment: Acute on chronic headache syndrome but similar pain to when she had stroke previously maintained on Plavix and aspirin and has reveal device to evaluate source of recurrent strokes Chronic back pain Narcotic dependency Conclusion Plan Plan: Discharge home Takes hydrocodone 4 times daily and she has plenty of the supply of that and anti-emetics Follow-up with Dr. Guillermo for assessment of pain management Clinical Quality Measures DVT/VTE Risk/Contraindication: Risk Factor Score Per Nursin RFS Level Per Nursing on Admit: 3=High CANDE TAVAREZ DO Mar 27, 2017 12:05
--- NOTE | 2017-03-27 12:36 | Consultation-Cardiology ---
HPI-Cardiology Cardiology Consultation: Date of Consultation 03/27/17 Date of Admission Attending Physician Cande Tavarez DO Admitting Physician Lawrence Guillermo MD Consulting Physician Candice SIMPSON MD HPI: Time Seen by Provider: 10:00 Chief Complaint: Possible stroke This is a 66-year-old lady with history of hypertension. She has previous history of TIA/CVA. She presents with vague symptoms, however there was concern of a TIA therefore she was admitted. She also complains of mild chest discomfort and shortness of breath. She has a previous implantable loop recorder. Review of Systems-Cardiology Review of Systems Constitutional: No As described under HPI, No no symptoms reported, No chills, No fever, No lightheadedness, No malaise, No tiredness, No weight loss, No weight gain, No other Eyes: No As described under HPI, No no symptoms reported, No blindness, No blurred vision, No contact lenses, No drainage, No decreased acuity, No foreign body sensation, No glasses, No inflammation, No pain, No photophobia, No previous injury, No shadows, No tunnel vision, No other, No vision change Ears/Nose/Throat: No As described under HPI, No no symptoms reported, No chronic hearing loss, No epistaxis, No ear discharge, No ear pain, No loose teeth, No mouth pain, No mouth swelling, No nasal drainage, No nose pain, No recent hearing loss, No throat pain, No throat swelling, No ulcerations, No other Respiratory: shortness of breath Cardiovascular: chest pain Gastrointestinal: No no symptoms reported, No As described under HPI, No abdomen distended, No abdominal pain, No blood streaked bowels, No constipation , No diarrhea, No difficulty swallowing, No nausea, No poor appetite, No poor fluid intake, No rectal bleeding, No vomiting, No other, No nausea/vomiting/ diarrhea, No stool coloration changes Genitourinary: No no symptoms reported, No As described under HPI, No burning, No dysuria, No discharge, No frequency, No flank pain, No hematuria, No incontinence, No pain, No urgency, No other, No urine frequency changes, No urine coloration changes Musculoskeletal: No no symptoms reported, No As describe under HPI, No back pain, No gout, No joint pain, No joint swelling, No muscle pain, No muscle stiffness, No neck pain, No other Skin: No no symptoms reported, No As described under HPI, No change in color, No change in hair/nails, No dryness, No lesions, No lumps, No rash, No other, No skin related problems, No ulcerations, No rash on exposed areas, No ulcerations on exposed areas Psychiatric/Neurological: As described under HPI Hematologic: No no symptoms reported, No As described under HPI, No anemia, No blood clots, No easy bleeding, No easy bruising, No swollen glands, No other, No bleeding abnormalities VPG-Ruzfhy-Kdprbi Hx Patient Social History Alcohol Use: Denies Use Recreational Drug Use: No Smoking Status: Never a Smoker Former smoker/When Quit: May 30, 1970 2nd Hand Smoke Exposure: No Recent Foreign Travel: No Recent Infectious Disease Expo: No Hospitalization with Isolation: Unknown Physical Abuse Screen: No Sexual Abuse: No Immunizations Up To Date Tetanus Booster (TDap): Unknown Date of Pneumonia Vaccine: Feb 15, 2007 Date of Influenza Vaccine: May 22, 2012 Past Medical History PMH As described under Assessment. Family Medical History Family History: Family history: Cardiovascular disease 19 FATHER 19 MOTHER G8 BROTHER Family history: Diabetes mellitus 19 MOTHER G8 BROTHER G8 BROTHER G8 SISTER G8 SISTER G8 SISTER Allergies and Home Medications Allergies Coded Allergies: enalapril (Verified Allergy, Unknown, RASH, 01/21/15) morphine (Verified Allergy, Unknown, RASH, 01/21/15) pneumococcal vaccine (Verified Allergy, Unknown, 01/21/15) Home Medications Aspirin 81 Mg Tabec, 81 MG PO DAILY, (Reported) Atorvastatin Calcium 80 Mg Tablet, 40 MG PO DAILY, (Reported) Clopidogrel Bisulfate 75 Mg Tablet, 75 MG PO DAILY, (Reported) Cyclobenzaprine HCl 5 Mg Tablet, 5 MG PO Q8H PRN for SPASMS, #30 Ref 0 Prescribed by: YOEL SENA on 12/29/16 1513 Escitalopram Oxalate 20 Mg Tablet, 20 MG PO DAILY, (Reported) Fluticasone/Salmeterol 1 Each Disk.w.dev, 0 IH BID, (Reported) 1 PUFF Glipizide 10 Mg Tablet, 10 MG PO DAILY, (Reported) Hydrocodone Bit/Acetaminophen 1 Tab Tablet, 1 TAB PO QID PRN for PAIN, (Reported ) Hydroxyzine Pamoate 25 Mg Capsule, 25 MG PO Q6H, (Reported) Meloxicam 7.5 Mg Tablet, 7.5 MG PO Q12H, #30 Ref 0 Prescribed by: YOEL SENA on 12/29/16 1513 Metformin Hcl 500 Mg Tablet, 500 MG PO BID, (Reported) Metoprolol Succinate 50 Mg Tab.sr.24h, 50 MG PO DAILY, (Reported) Pantoprazole Sodium 40 Mg Tablet.dr, 40 MG PO DAILY, (Reported) Prochlorperazine Maleate 5 Mg Tablet, 5 MG PO Q8H PRN for NAUSEA/VOMITING-1ST LINE, #10 Prescribed by: ROSANA ROSADO on 01/18/17 1818 Promethazine HCl 25 Mg Tablet, 25 MG PO Q6H PRN for NAUSEA/VOMITING, #10 Prescribed by: RUSSELL SMITH on 05/31/16 1247 Tramadol HCl 50 Mg Tablet, 50 MG PO Q6H PRN for break fhru pain, #20 Ref 0 Prescribed by: YOEL SENA on 12/29/16 1514 Trazodone Hcl 50 Mg Tablet, 50 MG PO HS, (Reported) Physical Exam-Cardiology Physical Exam Vital Signs/I&O Vital Sign - Last 12Hours 03/27/17 03/27/17 03/27/17 03/27/17 01:00 04:00 07:33 08:00 Temp 97.0 97.4 Pulse 62 98 82 61 Resp 18 16 B/P (MAP) 127/68 116/58 Pulse Ox 92 97 O2 Delivery Room Air Room Air 03/27/17 12:00 Temp 97.7 Pulse 59 Resp 20 B/P (MAP) 135/70 Pulse Ox 100 O2 Delivery Room Air Intake and Output 03/27/17 00:00 Intake Total 1100 ml Output Total 200 ml Balance 900 ml Capillary Refill : Less Than 3 Seconds Constitutional: No appears stated age, No AAO x 3, No apparent distress, No PERRL, No well-developed, No well-nourished, No other HEENT: No PERRL, No normal ENT inspection, No TMs normal, No pharynx normal, No scleral icterus (R), No scleral icterus (L), No pale conjunctivae (R), No pale conjunctivae (L), No photophobia, No TM abnormal (R), No TM abnormal (L), No pharyngeal erythema, No tonsillar exudate, No other, No discharge, No EOMI, No hearing is well preserved, No hard of hearing, No oral hygience is good, No ulceration, No xanthelasmas are seen Neck: No non-tender, No full range of motion, No supple, No normal inspection, No carotid bruit, No limited range of motion, No lymphadenopathy (R), No lymphadenopathy (L), No tender lateral, No tender midline, No thyromegaly, No other, No carotid pulses are 2 + bilaterally, No with good upstrokes Respiratory: No accessory muscle use, No respiratory distress, No chest tender , No chest expansion is symmetric, No chest is bilaterally symmetric, No lungs clear to percussion, No lungs clear to auscultation, No crackles, No rhonchi, No rales, No stridor, No wheezing, No pleural rub, No other Cardiovascular: No regular rate-rhythm, No irregularly irregular, No extra beats, No parasternal heave is noted, No JVD, No edema, No bradycardia, No tachycardia, No point of maximal impulse, No cardiac thrills are palpable, No S1 and S2, No gallop/S3, No gallop/S4, No diastolic murmur, No systolic murmur, No friction rub, No click, No other Gastrointestinal: No tender, No soft, No round, No distended, No pulsatile mass , No organomegaly, No guarding, No rebound, No tenderness, No hernia, No mass, No audible bowel sounds, No abnormal bowel sounds, No abdominal bruits, No spleenomegaly, No other Rectal: deferred Extremities: No clubbing, No cyanosis, No significant edema Neurologic/Psychiatric: alert, oriented x 3, power is 5/5 both on sides Skin: No rash, No ulcerations Data Review Labs Laboratory Tests 03/26/17 15:43: White Blood Count 9.7, Red Blood Count 4.02L, Hemoglobin 12.2, Hematocrit 37, Mean Corpuscular Volume 91, Mean Corpuscular Hemoglobin 30, Mean Corpuscular Hemoglobin Concent 33, Red Cell Distribution Width 12.4, Platelet Count 208, Mean Platelet Volume 9.9, Neutrophils (%) (Auto) 71, Lymphocytes (%) (Auto) 21, Monocytes (%) (Auto) 7, Eosinophils (%) (Auto) 1, Basophils (%) (Auto) 0, Neutrophils # (Auto) 6.9, Lymphocytes # (Auto) 2.0, Monocytes # (Auto) 0.7, Eosinophils # (Auto) 0.1, Basophils # (Auto) 0.0, Prothrombin Time 11.7L, INR Comment 0.9, Sodium Level 140, Potassium Level 4.1, Chloride Level 103, Carbon Dioxide Level 23, Anion Gap 14, Blood Urea Nitrogen 12, Creatinine 0.79, Estimat Glomerular Filtration Rate > 60, BUN/Creatinine Ratio 15, Glucose Level 142H, Calcium Level 8.9, Total Bilirubin 0.4, Aspartate Amino Transf (AST/SGOT) 29, Alanine Aminotransferase (ALT/SGPT) 24, Alkaline Phosphatase 70, Total Protein 6.6, Albumin 4.0 ECG Impression ECG Initial ECG Rhythm: Normal Sinus A/P-Cardiology Assessment/Admission Diagnosis Hypertension, Possible TIA, Chest pain, Shortness of breath Plan Will defer evaluation and treatment of TIA to the primary team. Echocardiogram shows normal LV function. Transthoracic echocardiogram has moderate sensitivity to rule out cardiac etiology of TIA/CVA. Patient has an implantable loop recorder which was placed due to a previous TIA for surveillance of atrial fibrillation. Device interrogation can be done as an outpatient. No congestive heart failure on examination. No further chest discomfort. Patient can be discharged to follow-up with Dr. Abraham/Quita in the next one week for further workup if required. Thank you for your consultation. Please call me if you have any questions. Lillie Simpson MD, FACP, FACC, FSCAI, FHRS, CCDS Interventional Cardiology Cardiac Electrophysiology Vascular Medicine and Endovascular Interventions Clinical Quality Measures DVT/VTE Risk/Contraindication: Risk Factor Score Per Nursin RFS Level Per Nursing on Admit: 3=High Candice SIMPSON MD Mar 27, 2017 12:36 pm
[2017-03-27 13:50] VITALS: BP 135/70
[2017-03-27] MEDS ORDERED: traZODone 50 MG (DESYREL) TAB PO SCH (21:00)
[2017-03-27] MEDS ORDERED: metFORMIN 500 MG (GLUCOPHAGE) TAB PO SCH (21:00)
[2017-03-27] MEDS ORDERED: SALMETEROL IH SCH (21:00)
[2017-03-27] MEDS ORDERED: FLUTICASONE IH SCH (21:00)
[2017-03-28] MEDS ORDERED: meTOproloL SUCCINATE 50 MG (TOPROL XL) TAB PO SCH (09:00)
[2017-03-28] MEDS ORDERED: ATORVASTATIN 80 MG (LIPITOR) TABLET PO SCH (09:00)
[2017-03-28] MEDS ORDERED: NON-FORMULARY MEDICATION 1 EA EA (Escitalopram Oxalate (Lexapro) 20 MG) PO SCH (09:00)
[2017-03-28] MEDS ORDERED: PANTOPRAZOLE 40 MG (PROTONIX) TAB PO SCH (09:00)
[2017-03-28] MEDS ORDERED: ASPIRIN E.C. 81 MG (ECOTRIN) TAB PO SCH (09:00)
[2017-03-28] MEDS ORDERED: CLOPIDOGREL 75 MG (PLAVIX) TABLET PO SCH (09:00)
[2017-03-28] MEDS ORDERED: NON-FORMULARY MEDICATION 1 EA EA (Glipizide 10 MG) PO SCH (09:00)
== END 2017-03-27 14:08 | disposition home or self-care (01) ==
LOC: EDUNIT# 15:27 → ER 15:29 → 4TH 17:37
PROVIDERS: ADMIT Internal Medicine; ATTEND Internal Medicine
DX: R51 Headache (principal); R11.0 Nausea; R07.9 Chest pain, unspecified; R06.02 Shortness of breath; M54.5 Low back pain; G89.29 Other chronic pain; J44.9 Chronic obstructive pulmonary disease, unspecified; I10 Essential (primary) hypertension; E11.9 Type 2 diabetes mellitus without complications; Z79.84 Long term (current) use of oral hypoglycemic drugs; Z79.82 Long term (current) use of aspirin; Z79.02 Long term (current) use of antithrombotics/antiplatelets; Z79.891 Long term (current) use of opiate analgesic; Z79.899 Other long term (current) drug therapy; Z95.810 Presence of automatic (implantable) cardiac defibrillator; Z86.73 Personal history of transient ischemic attack (TIA), and cerebral infarction without residual deficits
CPT/HCPCS: 36415; 70450; 80053; 85025; 85610; 93005; 93306; 96361; 96374; 96375; G0378

== ENCOUNTER 2017-08-24 04:46 | Emergency (ER) | payer MEDICARE, MEDICAID ==
[~2017-08-24] VITALS: Ht 157.5 cm; Wt 71.2 kg
--- OUTSIDE RECORDS SUMMARY | 2017-08-24 04:53 | XMS REPORT | Clinical Summary ---
Author Author [facility] Organization [facility] Address Unknown Phone Unavailable Care Team Providers Care Director Of First Impressions Name Role Phone PCP Unavailable Source Comments Some departments are not documenting in the electronic medical record. If you do not see the information that you expected, contact Release of Information in the Health Information Management department at [phone] for further assistance in locating additional records.[facility] Allergies No Known Allergies Current Medications Prescription Sig. [...] Types Packs/Day Years Used Date Never Assessed Sex Assigned at Date Recorded Not on file Last Filed Vital Signs Vital Sign Reading Time Taken Blood Pressure 144/92 06/03/2011 3:15 PM CDT Pulse 87 06/03/2011 3:15 PM CDT Temperature 36.4 C (97.5 F) 06/03/2011 1:15 PM CDT Respiratory Rate - - Oxygen Saturation 99% 06/03/2011 3:15 PM CDT Inhaled Oxygen - - Concentration Weight 81.6 kg (180 lb) 06/03/2011 1:15 PM CDT Height 162.6 cm (5' 4") 06/03/2011 1:15 PM CDT Body Mass Index 30.9 06/03/2011 1:15 PM CDT Plan of Treatment Health Maintenance Due Date Last Done Comments HEPATITIS C SCREENING 1948 PHYSICAL (COMPREHENSIVE) 1955 EXAM PERTUSSIS VACCINE 1959 TETANUS VACCINE 1965 BREAST CANCER SCREENING 1988 COLORECTAL CANCER 1998 SCREENING SHINGLES VACCINE 2008 OSTEOPOROSIS SCREENING 2013 PREVNAR/PNEUMOVAX (#1) 2013 INFLUENZA VACCINE 04/06/2017 Results Not on filefrom Last 3 Months
[2017-08-24] MEDS ORDERED: RT-ALBUTEROL SULF 2.5 MG/3 ML PRE-MIX VIAL INH STA (04:56)
--- OUTSIDE RECORDS SUMMARY | 2017-08-24 04:57 | XMS REPORT | Continuity of Care Document ---
Author Author [facility] Organization [facility] Address Unknown Phone Unavailable Allergies Active Description Code Type Severity Reaction Onset Reported/Identified Relationship to Patient Clinical Status Yes enalapril [id number] Drug Allergy Unknown RASH 01/21/2015 Yes morphine [id number] Drug Allergy Unknown RASH 01/21/2015 Yes pneumococcal vaccine [id number] Drug Allergy Unknown N/A 01/21/2015 Medications There is no data. Problems Date Dx Coded Attending Type Code Diagnosis Diagnosed By 07/08/2009 Ot 401.9 07/08/2009 Ot V45.4 07/08/2009 Ot V57.1 07/08/2009 Ot V58.49 11/01/2010 Ot 272.4 11/01/2010 Ot 401.0 11/01/2010 Ot 723.0 11/01/2010 Ot 723.1 11/01/2010 Ot V12.54 11/01/2010 Ot V12.59 04/09/2011 Ot 305.1 TOBACCO USE DISORDER 04/09/2011 Ot 401.9 HYPERTENSION NOS 04/09/2011 Ot 496 CHR AIRWAY OBSTRUCT NEC 04/09/2011 Ot 723.1 CERVICALGIA 04/09/2011 Ot 784.0 HEADACHE 06/03/2012 Ot 272.4 HYPERLIPIDEMIA NEC/NOS 06/03/2012 Ot 285.29 ANEMIA OF OTHER CHRONIC DISEASE 06/03/2012 Ot 362.34 TRANSIENT ARTERIAL OCCLU 06/03/2012 Ot 368.2 DIPLOPIA 06/03/2012 Ot 368.8 VISUAL DISTURBANCES NEC 06/03/2012 Ot 401.0 MALIGNANT HYPERTENSION 06/03/2012 Ot 434.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 NOS W CEREBRAL IN 06/03/2012 Ot 493.20 CHRONIC OBSTRUCTIVE ASTHMA, NOS 06/03/2012 Ot 786.50 CHEST PAIN NOS 06/03/2012 Ot V04.81 ND FOR PROPHYLACTIC VACCIN AND INOCULATI 06/03/2012 Ot V12.59 HX- CIRCULATORY SYST DIS,NEC 06/03/2012 Ot V15.82 HISTORY OF TOBACCO USE 06/15/2012 Ot 784.0 HEADACHE 06/16/2012 Ot 300.00 ANXIETY STATE NOS 06/16/2012 Ot 311 DEPRESSIVE DISORDER NEC 06/16/2012 Ot 401.9 HYPERTENSION NOS 06/16/2012 Ot 434.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 NOS W CEREBRAL IN 06/16/2012 Ot 496 CHR AIRWAY OBSTRUCT NEC 06/16/2012 Ot 781.0 ABN INVOLUN MOVEMENT NEC 06/16/2012 Ot V12.54 PERSONAL HX OF TIA, CEREBRAL INFARCTION 06/16/2012 Ot V15.82 HISTORY OF TOBACCO USE 07/07/2013 IRASEMA SMITH MD R Ot 244.9 HYPOTHYROIDISM NOS 07/07/2013 IRASEMA SMITH MD R Ot 272.4 HYPERLIPIDEMIA NEC/NOS 07/07/2013 IRASEMA SMITH MD R Ot 300.00 ANXIETY STATE NOS 07/07/2013 IRASEMA SMITH MD R Ot 311 DEPRESSIVE DISORDER NEC 07/07/2013 IRASEMA SMITH MD R Ot 401.0 MALIGNANT HYPERTENSION 07/07/2013 IRASEMA SMITH MD R Ot 427.61 ATRIAL PREMATURE BEATS 07/07/2013 IRASEMA SMITH MD R Ot 427.69 PREMATURE BEATS NEC 07/07/2013 IRASEMA SMITH MD R Ot 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, COGNITIVE 07/07/2013 IRASEMA SMITH MD R Ot 438.7 DISTURBANCES OF VISION 07/07/2013 IRASEMA SMITH MD R Ot 438.89 OTH LATE EFFECT-CEREBROVASCULAR DISEASE 07/07/2013 IRASEMA SMITH MD R Ot 493.20 CHRONIC OBSTRUCTIVE ASTHMA, NOS 07/07/2013 IRASEMA SMITH MD R Ot 530.81 ESOPHAGEAL REFLUX 07/07/2013 IRASEMA SMITH MD R Ot 564.1 IRRITABLE BOWEL SYNDROME 07/07/2013 IRASEMA SMITH MD R Ot 599.0 URIN TRACT INFECTION NOS 07/07/2013 IRASEMA SMITH MD R Ot 716.90 ARTHROPATHY NOS-UNSPEC 07/07/2013 IRASEMA SMITH MD R Ot 724.5 BACKACHE NOS 07/07/2013 IRASEMA SMITH MD R Ot 728.87 MUSCLE WEAKNESS (GENERALIZED) 07/07/2013 IRASEMA SMITH MD R Ot 780.4 DIZZINESS AND GIDDINESS 07/07/2013 IRASEMA SMITH MD R Ot 785.1 PALPITATIONS 07/07/2013 IRASEMA SMITH MD R Ot 786.05 SHORTNESS OF BREATH 07/07/2013 IRASEMA SMITH MD R Ot 786.50 CHEST PAIN NOS 07/07/2013 IRASEMA SMITH MD R Ot V04.81 ND FOR PROPHYLACTIC VACCIN AND INOCULATI 07/07/2013 IRASEMA SMITH MD R Ot V13.02 PERSONAL HISTORY, URINARY (TRACT) INFECT 07/07/2013 IRASEMA SMITH MD R Ot V15.82 HISTORY OF TOBACCO USE 07/07/2013 IRASEMA SMITH MD R Ot V17.3 FAM HX-ISCHEM HEART DIS 12/25/2013 MICHELLE KWON MD Ot 401.9 HYPERTENSION NOS 12/25/2013 MICHELLE KWON MD Ot 530.3 ESOPHAGEAL STRICTURE 12/25/2013 MICHELLE KWON MD Ot V12.54 PERSONAL HX OF TIA, CEREBRAL INFARCTION 02/16/2014 IRASEMA SMITH MD R Ot 244.9 HYPOTHYROIDISM NOS 02/16/2014 IRASEMA SMITH MD R Ot 272.0 PURE HYPERCHOLESTEROLEM 02/16/2014 IRASEMA SMITH MD R Ot 311 DEPRESSIVE DISORDER NEC 02/16/2014 IRASEMA SMITH MD R Ot 368.8 VISUAL DISTURBANCES NEC 02/16/2014 IRASEMA SMITH MD R Ot 401.9 HYPERTENSION NOS 02/16/2014 IRASEMA SMITH MD R Ot 434.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 NOS W CEREBRAL IN 02/16/2014 IRASEMA SMITH MD R Ot 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, COGNITIVE 02/16/2014 IRASEMA SMITH MD R Ot 438.21 LATE EFF-CEREBR DIS,HEMIPLEGIA AFFECTING 02/16/2014 IRASEMA SMITH MD R Ot 438.7 DISTURBANCES OF VISION 02/16/2014 IRASEMA SMITH MD R Ot 493.90 ASTHMA, UNSPECIFIED 02/16/2014 IRASEMA SMITH MD R Ot 530.81 ESOPHAGEAL REFLUX 02/16/2014 IRASEMA SMITH MD R Ot 790.29 OTHER ABNORMAL GLUCOSE 02/20/2014 SELWNY GABRIEL, DUSTIN E Ot 272.0 PURE HYPERCHOLESTEROLEM 02/20/2014 DUSTIN SAMANO MD Ot 311 DEPRESSIVE DISORDER NEC 02/20/2014 DUSTIN SAMANO MD E Ot 401.9 HYPERTENSION NOS 02/20/2014 DUSTIN SAMANO MD Ot 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, COGNITIVE 02/20/2014 DUSTIN SAMANO MD E Ot 438.21 LATE EFF-CEREBR DIS,HEMIPLEGIA AFFECTING 02/20/2014 DUSTIN SAMANO MD Ot 438.22 LATE EFF-CEREBR DIS,HEMIPLEGIA AFFECTING 02/20/2014 DUSTIN SAMANO MD Ot 438.7 DISTURBANCES OF VISION 02/20/2014 DUSTIN SAMANO MD Ot 493.90 ASTHMA, UNSPECIFIED 02/20/2014 DUSTIN SAMANO MD Ot 530.81 ESOPHAGEAL REFLUX 02/20/2014 DUSTIN SAMANO MD Ot 698.9 PRURITIC DISORDER NOS 02/20/2014 DUSTIN SAMANO MD Ot E942.6 ADV EFF ANTIHYPERTEN AGT 02/20/2014 DUSTIN SAMANO MD Ot V57.89 REHABILITATION PROC NEC 02/21/2014 TRAVIS JENNINGS MD Ot 272.4 HYPERLIPIDEMIA NEC/NOS 02/21/2014 TRAVIS JENNINGS MD Ot 285.9 ANEMIA NOS 02/21/2014 TRAVIS JENNINGS MD Ot 369.9 VISUAL LOSS NOS 02/21/2014 TRAVIS JENNINGS MD Ot 401.9 HYPERTENSION NOS 02/21/2014 TRAVIS JENNINGS MD Ot 438.20 LATE EFF-CEREBR DIS,HEMIPLEGIA AFFECTING 02/21/2014 TRAVIS JENNINGS MD Ot 438.6 ALTERATIONS OF SENSATIONS 02/21/2014 TRAVIS JENNINGS MD Ot 786.50 CHEST PAIN NOS 05/12/2014 REVA MA DO Ot 244.9 HYPOTHYROIDISM NOS 05/12/2014 REVA MA DO Ot 401.9 HYPERTENSION NOS 05/12/2014 ANIL KADIE HILLMANA K Ot 780.4 DIZZINESS AND GIDDINESS 05/12/2014 KADIE MA DOA K Ot 787.02 NAUSEA ALONE 05/12/2014 KADIE MA DOA K Ot V58.69 OTH MED,LT,CURRENT USE 10/08/2014 Ot 727.61 10/08/2014 Ot V72.81 10/08/2014 Ot V74.8 10/08/2014 Ot V76.12 10/08/2014 Ot 427.32 10/08/2014 Ot 785.1 10/08/2014 Ot 397.0 10/08/2014 Ot 424.0 10/08/2014 Ot 786.09 10/08/2014 Ot 786.50 10/08/2014 Ot 786.09 10/08/2014 Ot 786.50 10/08/2014 Ot 368.8 10/08/2014 Ot 784.0 10/08/2014 Ot 272.4 10/08/2014 Ot 401.9 10/08/2014 Ot V76.12 10/08/2014 Ot 786.2 10/08/2014 Ot 722.10 10/08/2014 Ot 244.9 10/08/2014 Ot 272.4 10/08/2014 Ot 401.9 10/08/2014 Ot 298.9 10/08/2014 Ot 369.9 10/08/2014 Ot V12.54 10/08/2014 CHER GABRIEL, MICHELLE M Ot V72.84 10/08/2014 CHER GABRIEL, MICHELLE M Ot 211.3 10/08/2014 CHER GABRIEL, MICHELLE M Ot 530.3 10/08/2014 CHER GABRIEL, MICHELLE M Ot V76.51 10/08/2014 SARAH GABRIEL, IRASEMA R Ot 369.9 10/08/2014 SARAH GABRIEL, IRASEMA R Ot 473.0 10/08/2014 SARAH GABRIEL, IRASEMA R Ot 780.4 10/08/2014 CHER GABRIEL, MICHELLE M Ot V72.84 10/08/2014 URBAN MALONEY K Ot 272.4 10/08/2014 URBAN MALONEY K Ot 278.00 10/08/2014 CHANDRAKANT MALONEYTH K Ot 401.9 10/08/2014 BRITNEY MICHELLE, URBAN K Ot 434.91 10/08/2014 SARAH GABRIEL, IRASEMA R Ot 790.29 10/08/2014 DICK GABRIEL, TRAVIS J Ot 272.4 10/08/2014 DICK GABRIEL, TRAVIS J Ot 278.00 10/08/2014 DICK GABRIEL, TRAVIS J Ot 401.9 10/08/2014 DICK GABRIEL, TRAVIS Pastor Ot 785.1 10/08/2014 DICK GABRIEL, TRAVIS Pastor Ot 996.09 10/08/2014 TRAVIS JENNINGS MD Ot E878.1 10/08/2014 TRAVIS JENNINGS MD Ot V12.54 10/08/2014 TRAVIS JENNINGS MD Ot V58.69 10/08/2014 TRAVIS JENNINGS MD Ot V85.32 10/10/2014 IRASEMA SMITH MD Ot 244.9 HYPOTHYROIDISM NOS 10/10/2014 IRASEMA SMITH MD Ot 272.4 HYPERLIPIDEMIA NEC/NOS 10/10/2014 IRASEMA SMITH MD R Ot 401.9 HYPERTENSION NOS 10/10/2014 IRASEMA SMITH MD Ot 433.10 CAROTID ARTERY OCCLUSION W O CEREBRAL IN 10/10/2014 IRASEMA SMITH MD Ot 493.90 ASTHMA, UNSPECIFIED 10/10/2014 IRASEMA SMITH MD R Ot 724.00 SPINAL STENOSIS NOS 10/10/2014 IRASEMA SMITH MD Ot 786.50 CHEST PAIN NOS 10/10/2014 IRASEMA SMITH MD R Ot V12.54 PERSONAL HX OF TIA, CEREBRAL INFARCTION 01/22/2015 IRASEMA SMITH MD R Ot 244.9 HYPOTHYROIDISM NOS 01/22/2015 IRASEMA SMITH MD R Ot 250.00 DIAB MANPREET WO COMPL, TYPE II OR UNSPEC TY 01/22/2015 IRASEMA SMITH MD R Ot 276.50 VOLUME DEPLETION, UNSPECIFIED 01/22/2015 IRASEMA SMITH MD R Ot 496 CHR AIRWAY OBSTRUCT NEC 01/22/2015 IRASEMA SMITH MD R Ot 530.81 ESOPHAGEAL REFLUX 01/22/2015 IRASEMA SMITH MD R Ot 780.79 OTH MALAISE FATIGUE 01/26/2015 WILLIAM QUINN MD Ot 465.9 ACUTE URI NOS 01/26/2015 WILLIAM QUINN MD Ot 786.2 COUGH 01/26/2015 WILLIAM QUINN MD Ot 787.03 VOMITING ALONE 02/03/2015 IRASEMA SMITH MD R Ot 729.5 02/05/2015 Ot 427.32 02/05/2015 Ot 785.1 02/05/2015 Ot 397.0 02/05/2015 Ot 424.0 02/05/2015 Ot 786.09 02/05/2015 Ot 786.50 02/05/2015 Ot 786.09 02/05/2015 Ot 786.50 02/05/2015 Ot 368.8 02/05/2015 Ot 784.0 02/05/2015 Ot 272.4 02/05/2015 Ot 401.9 02/05/2015 Ot V76.12 02/05/2015 Ot 786.2 02/05/2015 Ot 722.10 02/05/2015 Ot 244.9 02/05/2015 Ot 272.4 02/05/2015 Ot 401.9 02/05/2015 Ot 298.9 02/05/2015 Ot 369.9 02/05/2015 Ot V12.54 02/05/2015 CHER GABRIEL, MICHELLE Harvey Ot V72.84 02/05/2015 CHER GABRIEL, MICHELLE M Ot 211.3 02/05/2015 CHER GABRIEL, MICHELLE M Ot 530.3 02/05/2015 CHER GABRIEL, MICHELLE M Ot V76.51 02/05/2015 SARAH GABRIEL, IRASEMA R Ot 369.9 02/05/2015 SARAH GABRIEL, IRASEMA R Ot 473.0 02/05/2015 SARAH GABRIEL, IRASEMA R Ot 780.4 02/05/2015 CHER GABRIEL, MICHELLE M Ot V72.84 02/05/2015 URBAN MALONEY Ot 272.4 02/05/2015 URBAN MALONEY K Ot 278.00 02/05/2015 BRITNEY MICHELLE, URBAN K Ot 401.9 02/05/2015 URBAN MALONEY K Ot 434.91 02/05/2015 SARAH GABRIEL, IRASEMA R Ot 790.29 02/05/2015 DICK GABRIEL, TRAVIS Pastor Ot 272.4 02/05/2015 DICK GABRIEL, TRAVIS J Ot 278.00 02/05/2015 DICK GABRIEL, TRAVIS J Ot 401.9 02/05/2015 DICK GABRIEL, TRAVIS J Ot 785.1 02/05/2015 DICK GABRIEL, TRAVIS J Ot 996.09 02/05/2015 DICK GABRIEL, TRAVIS Pastor Ot E878.1 02/05/2015 DICK GABRIEL, TRAVIS Pastor Ot V12.54 02/05/2015 DICK GABRIEL, TRAVIS Pastor Ot V58.69 02/05/2015 DICK GABRIEL, TRAVIS J Ot V85.32 02/05/2015 SARAH GABRIEL, IRASEMA R Ot 729.5 02/05/2015 SARAH GABRIEL, IRASEMA R Ot 611.71 02/06/2015 SARAH GABRIEL, IRASEMA R Ot 244.9 HYPOTHYROIDISM NOS 02/06/2015 SARAH GABRIEL, IRASEMA R Ot 250.00 DIAB MANPREET WO COMPL, TYPE II OR UNSPEC TY 02/06/2015 IRASEMA SMITH MD R Ot 272.0 PURE HYPERCHOLESTEROLEM 02/06/2015 SARAH GABRIEL, IRASEMA R Ot 275.2 DIS MAGNESIUM METABOLISM 02/06/2015 SARAH GABRIEL, IRASEMA R Ot 276.50 VOLUME DEPLETION, UNSPECIFIED 02/06/2015 SARAH GABRIEL, IRASEMA R Ot 300.00 ANXIETY STATE NOS 02/06/2015 SARAH GABRIEL, IRASEMA R Ot 311 DEPRESSIVE DISORDER NEC 02/06/2015 SARAH GABRIEL, IRASEMA R Ot 401.9 HYPERTENSION NOS 02/06/2015 SARAH GABRIEL, IRASEMA R Ot 438.7 DISTURBANCES OF VISION 02/06/2015 SARAH GABRIEL, IRASEMA R Ot 438.85 VERTIGO 02/06/2015 SARAH GABRIEL, IRASEMA R Ot 438.89 OTH LATE EFFECT-CEREBROVASCULAR DISEASE 02/06/2015 SARAH GABRIEL, IRASEMA R Ot 440.9 ATHEROSCLEROSIS NOS 02/06/2015 SARAH GABRIEL, IRASEMA R Ot 461.9 ACUTE SINUSITIS NOS 02/06/2015 SARAH GABRIEL, IRASEMA R Ot 465.9 ACUTE URI NOS 02/06/2015 IRASEMA SMITH MD R Ot 491.22 02/06/2015 SARAH GABRIEL, IRASEMA R Ot 493.20 CHRONIC OBSTRUCTIVE ASTHMA, NOS 02/06/2015 SARAH GABRIEL, IRASEMA R Ot 493.90 02/06/2015 SARAH GABRIEL, IRASEMA R Ot 530.81 ESOPHAGEAL REFLUX 02/06/2015 IRASEMA SMITH MD R Ot 593.9 RENAL URETERAL DIS NOS 02/06/2015 IRASEMA SMITH MD R Ot 599.0 02/06/2015 IRASEMA SMITH MD R Ot 716.90 ARTHROPATHY NOS-UNSPEC 02/06/2015 IRASEMA SMITH MD R Ot 723.1 CERVICALGIA 02/06/2015 SARAH GABRIEL, IRASEMA R Ot 724.5 BACKACHE NOS 02/06/2015 SARAH GABRIEL, IRASEMA R Ot 780.79 OTH MALAISE FATIGUE 02/06/2015 SARAH GABRIEL, IRASEMA R Ot 780.93 MEMORY LOSS 02/06/2015 SARAH GABRIEL, IRASEMA R Ot 850.5 CONCUSSION W COMA NOS 02/06/2015 SARAH GABRIEL, IRASEMA R Ot 959.01 02/06/2015 IRASEMA SMITH MD R Ot 959.19 OTH INJURY OF OTHER SITES OF TRUNK 02/06/2015 SARAH GABRIEL, IRASEMA R Ot E849.0 ACCIDENT IN HOME 02/06/2015 SARAH GABRIEL, IRASEMA R Ot E888.9 FALL NOS 02/15/2015 SARAH GBARIEL, IRASEMA R Ot 611.71 02/27/2015 IRASEMA SMITH MD R Ot 611.71 03/11/2015 TRAVIS JENNINGS MD Ot 401.9 03/11/2015 TRAVIS JENNINGS MD Ot 414.01 03/19/2015 TRAVIS JENNINGS MD Ot 401.9 03/19/2015 TRAVIS JENNINGS MD Ot 414.01 05/21/2015 SARAH GABRIEL, IRASEMA R Ot 729.5 06/07/2015 IRASEMA SMITH MD R Ot 723.1 06/07/2015 IRASEMA SMITH MD R Ot 784.2 07/01/2015 IRASEMA SMITH MD R Ot 723.1 07/01/2015 IRASEMA SMITH MD R Ot 784.2 07/08/2015 TRAVIS JENNINGS MD Ot 272.4 07/08/2015 TRAVIS JENNINGS MD Ot 401.9 07/08/2015 TRAVIS JENNINGS MD Ot 434.91 07/08/2015 TRAVIS JENNINGS MD Ot 786.50 07/11/2015 IRASEMA SMITH MD R Ot 723.1 07/11/2015 IRASEMA SMITH MD R Ot 784.2 07/22/2015 TRAVIS JENNINGS MD Ot 272.4 07/22/2015 TRAVIS JENNINGS MD Ot 401.9 07/22/2015 TRAVIS JENNINGS MD Ot 434.91 07/22/2015 TRAVIS JENNINGS MD Ot 786.50 12/24/2015 ELVIRA GABRIEL, FELIZ Shirley Ot E11.9 TYPE 2 DIABETES MELLITUS WITHOUT COMPLIC 12/24/2015 ELVIRA GABRIEL, FELIZ T Ot I10 ESSENTIAL (PRIMARY) HYPERTENSION 12/24/2015 ELVIRA GABRIEL, FELIZ T Ot M79.662 PAIN IN LEFT LOWER LEG 12/24/2015 ELVIRA GABRIEL, FELIZ T Ot R25.2 CRAMP AND SPASM 12/25/2015 ELVIRA GABRIEL, FELIZ Shirley Ot E11.9 TYPE 2 DIABETES MELLITUS WITHOUT COMPLIC 12/25/2015 ELVIRA GABRIEL, FELIZ T Ot I10 ESSENTIAL (PRIMARY) HYPERTENSION 12/25/2015 ELVIRA GABRIEL, FELIZ T Ot M79.662 PAIN IN LEFT LOWER LEG 12/25/2015 ELVIRA GABRIEL, FELIZ T Ot R25.2 CRAMP AND SPASM 01/20/2016 RHONA SMITH ELECTROTYPE MOLDER Ot E11.9 TYPE 2 DIABETES MELLITUS WITHOUT COMPLIC 01/20/2016 RHONA SMITH ELECTROTYPE MOLDER Ot E78.5 HYPERLIPIDEMIA, UNSPECIFIED 01/20/2016 RHONA SIMTH ELECTROTYPE MOLDER Ot I10 ESSENTIAL (PRIMARY) HYPERTENSION 01/20/2016 RHONA SMITH ELECTROTYPE MOLDER Ot 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 01/20/2016 RHONA SMITH ELECTROTYPE MOLDER Ot K21.9 GASTRO-ESOPHAGEAL REFLUX DISEASE WITHOUT 01/20/2016 RHONA SMITH ELECTROTYPE MOLDER Ot R11.0 NAUSEA 02/12/2016 RHONA SMITH ELECTROTYPE MOLDER Ot E11.9 TYPE 2 DIABETES MELLITUS WITHOUT COMPLIC 02/12/2016 RHONA SMITH ELECTROTYPE MOLDER Ot E78.5 HYPERLIPIDEMIA, UNSPECIFIED 02/12/2016 RHONA SMITH ELECTROTYPE MOLDER Ot I10 ESSENTIAL (PRIMARY) HYPERTENSION 02/12/2016 RHONA SMITH ELECTROTYPE MOLDER Ot 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 02/12/2016 RHONA SMITH ELECTROTYPE MOLDER Ot K21.9 GASTRO-ESOPHAGEAL REFLUX DISEASE WITHOUT 02/12/2016 RHONA SMITH ELECTROTYPE MOLDER Ot R11.0 NAUSEA 02/13/2016 SARAH GABRIEL, IRASEMA R Ot R51 HEADACHE 02/13/2016 SARAH GABRIEL, IRASEMA R Ot R51 HEADACHE 02/18/2016 RHONA SMITH ELECTROTYPE MOLDER Ot E11.9 TYPE 2 DIABETES MELLITUS WITHOUT COMPLIC 02/18/2016 RHONA SMITH ELECTROTYPE MOLDER Ot E78.5 HYPERLIPIDEMIA, UNSPECIFIED 02/18/2016 RHONA SMITH ELECTROTYPE MOLDER Ot I10 ESSENTIAL (PRIMARY) HYPERTENSION 02/18/2016 RHOAN SMITH Candice ELECTROTYPE MOLDER Ot 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 02/18/2016 RHONA SMITH ELECTROTYPE MOLDER Ot K21.9 GASTRO-ESOPHAGEAL REFLUX DISEASE WITHOUT 02/18/2016 RHONA SMITH ELECTROTYPE MOLDER Ot R11.0 NAUSEA 03/03/2016 SARAH GABRIEL, IRASEMA R Ot R51 HEADACHE 03/25/2016 SARAH GABRIEL, IRASEMA R Ot R51 HEADACHE 05/27/2016 Ot V76.12 OTH SCREEN MAMMO-MALIGN NEOPLASM OF [place] 05/27/2016 Ot 786.2 COUGH 05/27/2016 Ot 722.10 LUMBAR DISC DISPLACEMENT 05/27/2016 Ot 244.9 HYPOTHYROIDISM NOS 05/27/2016 Ot 272.4 HYPERLIPIDEMIA NEC/NOS 05/27/2016 Ot 401.9 HYPERTENSION NOS 05/27/2016 Ot 298.9 PSYCHOSIS NOS 05/27/2016 Ot 369.9 VISUAL LOSS NOS 05/27/2016 Ot V12.54 PERSONAL HX OF TIA, CEREBRAL INFARCTION 05/27/2016 CHER GABRIEL, MICHELLE Harvey Ot V72.84 EXAM PRE-OPERATIVE NOS 05/27/2016 CHER GABRIEL, MICHELLE Harvey Ot 211.3 BENIGN NEOPLASM LG BOWEL 05/27/2016 CHER GABRIEL, MICHELLE Harvey Ot 530.3 ESOPHAGEAL STRICTURE 05/27/2016 CHER GABRIEL, MICHELLE Harvey Ot V76.51 SCREEN MAL NEOP-COLON 05/27/2016 SARAH GABRIEL, IRASEMA R Ot 369.9 VISUAL LOSS NOS 05/27/2016 SARAH GABRIEL, IRASEMA Potts Ot 473.0 CHR MAXILLARY SINUSITIS 05/27/2016 SARAH GABRIEL, IRASEMA R Ot 780.4 DIZZINESS AND GIDDINESS 05/27/2016 CHER GABRIEL, MICHELLE Harvey Ot V72.84 EXAM PRE-OPERATIVE NOS 05/27/2016 URBAN MALONEY Ot 272.4 HYPERLIPIDEMIA NEC/NOS 05/27/2016 URBAN MALONEY Ot 278.00 OBESITY, NOS 05/27/2016 URBAN MALONEY Ot 401.9 HYPERTENSION NOS 05/27/2016 URBAN MALONEY Ot 434.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 NOS W CEREBRAL IN 05/27/2016 IRASEMA SMITH MD R Ot 790.29 OTHER ABNORMAL GLUCOSE 05/27/2016 TRAVIS JENNINGS MD Ot 272.4 HYPERLIPIDEMIA NEC/NOS 05/27/2016 TRAVIS JENNINGS MD Ot 278.00 OBESITY, NOS 05/27/2016 TRAVIS JENNINGS MD Ot 401.9 HYPERTENSION NOS 05/27/2016 TRAVIS JENNINGS MD Ot 785.1 PALPITATIONS 05/27/2016 TRAVIS JENNINGS MD Ot 996.09 MALFUNC CARD DEV/GRF NEC 05/27/2016 TRAVIS JENNINGS MD Ot E878.1 ABN REACT-ARTIF IMPLANT 05/27/2016 TRAVIS JENNINGS MD Ot V12.54 PERSONAL HX OF TIA, CEREBRAL INFARCTION 05/27/2016 TRAVIS JENNINGS MD, Ot V58.69 OT MED,LT,CURRENT USE 05/27/2016 TRAVIS JENNINGS MD Ot V85.32 BODY MASS INDEX 32.0-32.9, ADULT 05/27/2016 IRASEMA SMITH MD R Ot 729.5 PAIN IN LIMB 05/27/2016 IRASEMA SMITH MD R Ot 611.71 MASTODYNIA 05/27/2016 TRAVIS JENNINGS MD Ot 401.9 HYPERTENSION NOS 05/27/2016 TRAVIS JENNINGS MD Ot 414.01 CORONARY ATHEROSCLEROSIS OF [place] MARTINEZ CORON 05/27/2016 TRAVIS JENNINGS MD Ot 272.4 HYPERLIPIDEMIA NEC/NOS 05/27/2016 TRAVIS JENNINGS MD Ot 401.9 HYPERTENSION NOS 05/27/2016 TRAVIS JENNINGS MD Ot 434.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 NOS W CEREBRAL IN 05/27/2016 TRAVIS JENNINGS MD Ot 786.50 CHEST PAIN NOS 05/27/2016 IRASEMA SMITH MD R Ot 723.1 CERVICALGIA 05/27/2016 SARAH GABRIEL, IRASEMA R Ot 784.2 SWELLING IN HEAD NECK 05/27/2016 RHONA SMITH ELECTROTYPE MOLDER Ot E11.9 TYPE 2 DIABETES MELLITUS WITHOUT COMPLIC 05/27/2016 RHONA SMITH ELECTROTYPE MOLDER Ot E78.5 HYPERLIPIDEMIA, UNSPECIFIED 05/27/2016 RHONA SMITH Candice ELECTROTYPE MOLDER Ot I10 ESSENTIAL (PRIMARY) HYPERTENSION 05/27/2016 RHONA SMITH Candice ELECTROTYPE MOLDER Ot 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 05/27/2016 RHONA SMITH Candice ELECTROTYPE MOLDER Ot K21.9 GASTRO-ESOPHAGEAL REFLUX DISEASE WITHOUT 05/27/2016 RHONA SMITH ELECTROTYPE MOLDER Ot R11.0 NAUSEA 05/27/2016 SARAH GABRIEL, IRASEMA R Ot R51 HEADACHE 05/27/2016 SARAH GABRIEL, IRASEMA R Ot R63.4 ABNORMAL WEIGHT LOSS 05/27/2016 SARAH GABRIEL, IRASEMA R Ot R63.4 ABNORMAL WEIGHT LOSS 05/28/2016 SARAH GABRIEL, IRASEMA R Ot R10.84 GENERALIZED ABDOMINAL PAIN 05/28/2016 SARAH GABRIEL, IRASEMA R Ot R11.0 NAUSEA 05/28/2016 SARAH GABRIEL, IRASEMA R Ot R63.4 ABNORMAL WEIGHT LOSS 05/28/2016 SARAH GABRIEL, IRASEMA R Ot R10.84 GENERALIZED ABDOMINAL PAIN 05/28/2016 SARAH GABRIEL, IRASEMA R Ot R11.0 NAUSEA 05/28/2016 SARAH GABRIEL, IRASEMA R Ot R63.4 ABNORMAL WEIGHT LOSS 05/31/2016 RUSSELL SMITH ELECTROTYPE MOLDER Ot E03.9 HYPOTHYROIDISM, UNSPECIFIED 05/31/2016 LUIS RUSSELL ELECTROTYPE MOLDER Ot E11.9 TYPE 2 DIABETES MELLITUS WITHOUT COMPLIC 05/31/2016 LUIS RUSSELL ELECTROTYPE MOLDER Ot I10 ESSENTIAL (PRIMARY) HYPERTENSION 05/31/2016 LUIS RUSSELL ELECTROTYPE MOLDER Ot M54.5 LOW BACK PAIN 05/31/2016 LUIS RUSSELL ELECTROTYPE MOLDER Ot R10.30 LOWER ABDOMINAL PAIN, UNSPECIFIED 05/31/2016 LUIS RUSSELL ELECTROTYPE MOLDER Ot R11.2 NAUSEA WITH VOMITING, UNSPECIFIED 05/31/2016 LUIS RUSSELL ELECTROTYPE MOLDER Ot R19.7 DIARRHEA, UNSPECIFIED 05/31/2016 LUIS RUSSELL ELECTROTYPE MOLDER Ot Z79.82 GROUP HOME (CURRENT) USE OF ASPIRIN 05/31/2016 RUSSELL SMITH ELECTROTYPE MOLDER Ot Z79.899 OTHER GROUP HOME (CURRENT) DRUG THERAPY 05/31/2016 RUSSELL SMITH ELECTROTYPE MOLDER Ot Z86.718 PERSONAL HISTORY OF OTHER VENOUS THROMBO 05/31/2016 RUSSELL SMITH ELECTROTYPE MOLDER Ot Z95.810 PRESENCE OF AUTOMATIC (IMPLANTABLE) CARD 06/01/2016 IRASEMA SMITH MD R Ot R63.4 ABNORMAL WEIGHT LOSS 06/02/2016 RUSSELL SMITH ELECTROTYPE MOLDER Ot E03.9 HYPOTHYROIDISM, UNSPECIFIED 06/02/2016 LUIS, RUSSELL ELECTROTYPE MOLDER Ot E11.9 TYPE 2 DIABETES MELLITUS WITHOUT COMPLIC 06/02/2016 LUIS RUSSELL ELECTROTYPE MOLDER Ot I10 ESSENTIAL (PRIMARY) HYPERTENSION 06/02/2016 LUIS RUSSELL ELECTROTYPE MOLDER Ot M54.5 LOW BACK PAIN 06/02/2016 LUIS RUSSELL ELECTROTYPE MOLDER Ot R10.30 LOWER ABDOMINAL PAIN, UNSPECIFIED 06/02/2016 LUIS RUSSELL ELECTROTYPE MOLDER Ot R11.2 NAUSEA WITH VOMITING, UNSPECIFIED 06/02/2016 LUIS RUSSELL ELECTROTYPE MOLDER Ot R19.7 DIARRHEA, UNSPECIFIED 06/02/2016 LUIS RUSSELL ELECTROTYPE MOLDER Ot 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 06/02/2016 LUIS RUSSELL ELECTROTYPE MOLDER Ot Z79.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 06/02/2016 RUSSELL SMITH ELECTROTYPE MOLDER Ot Z86.718 PERSONAL HISTORY OF OTHER VENOUS THROMBO 06/02/2016 RUSSELL SMITH ELECTROTYPE MOLDER Ot Z95.810 PRESENCE OF AUTOMATIC (IMPLANTABLE) CARD 06/17/2016 IRASEMA SMITH MD R Ot R10.84 GENERALIZED ABDOMINAL PAIN 06/17/2016 SARAH GABRIEL IRASEMA R Ot R11.0 NAUSEA 06/17/2016 SARAH GABRIEL IRASEMA R Ot R63.4 ABNORMAL WEIGHT LOSS 06/17/2016 SARAH GABRIEL IRASEMA R Ot R63.4 ABNORMAL WEIGHT LOSS 06/24/2016 SARAH GABRIEL, IRASEMA R Ot R10.84 GENERALIZED ABDOMINAL PAIN 06/24/2016 SARAH GABRIEL, IRASEMA R Ot R11.0 NAUSEA 06/24/2016 SARAH GABRIEL IRASEMA R Ot R63.4 ABNORMAL WEIGHT LOSS 06/30/2016 SARAH GABRIEL IRASEMA R Ot R10.84 GENERALIZED ABDOMINAL PAIN 06/30/2016 SARAH GABRIEL, IRASEMA R Ot R11.0 NAUSEA 06/30/2016 SARAH GABRIEL, IRASEMA R Ot R63.4 ABNORMAL WEIGHT LOSS 06/30/2016 SARAH GABRIEL, IRASEMA R Ot R10.84 GENERALIZED ABDOMINAL PAIN 06/30/2016 SARAH GABRIEL, IRASEMA R Ot R11.0 NAUSEA 06/30/2016 SARAH GABRIEL, IRASEMA R Ot R63.4 ABNORMAL WEIGHT LOSS 07/06/2016 SARAH GABRIEL, IRASEMA R Ot R63.4 ABNORMAL WEIGHT LOSS 11/23/2016 URBAN MALONEY Ot E78.2 MIXED HYPERLIPIDEMIA 11/24/2016 URBAN MALONEY Ot E78.2 MIXED HYPERLIPIDEMIA 11/24/2016 URBAN MALONEY Ot I10 ESSENTIAL (PRIMARY) HYPERTENSION 11/24/2016 URBAN MALONEY Ot I63.8 OTHER CEREBRAL INFARCTION 11/24/2016 URBAN MALONEY Ot R07.9 CHEST PAIN, UNSPECIFIED 12/29/2016 YOEL SENA DO, Ot E11.9 TYPE 2 DIABETES MELLITUS WITHOUT COMPLIC 12/29/2016 YOEL SENA DO, Ot I10 ESSENTIAL (PRIMARY) HYPERTENSION 12/29/2016 YOEL SENA DO, Ot M47.817 SPONDYLS W/O MYELOPATHY OR RADICULOPATHY 12/29/2016 YOEL SENA DO, Ot S00.93XA CONTUSION OF UNSPECIFIED PART OF HEAD, I 12/29/2016 YOEL SENA DO, Ot S13.4XXA SPRAIN OF LIGAMENTS OF CERVICAL SPINE, I 12/29/2016 YOEL SENA DO, Ot S19.9XXA UNSPECIFIED INJURY OF NECK, INITIAL ENCO 12/29/2016 YOEL SENA DO, Ot S23.3XXA SPRAIN OF LIGAMENTS OF THORACIC SPINE, I 12/29/2016 YOEL SENA DO, Ot S30.0XXA CONTUSION OF LOWER BACK AND PELVIS, INIT 12/29/2016 YOEL SENA DO, Ot S33.5XXA SPRAIN OF LIGAMENTS OF LUMBAR SPINE, INI 12/29/2016 YOEL SENA DO, Ot W18.2XXA FALL IN (INTO) SHOWER OR EMPTY BATHTUB, 12/29/2016 YOEL SENA DO, Ot Y92.002 BATHRM OF [facility] SN 12/29/2016 YOEL SENA DO, Ot Y93.E1 ACTIVITY, PERSONAL BATHING AND SHOWERING 12/29/2016 YOEL SENA DO, Ot Y99.8 OTHER EXTERNAL CAUSE STATUS 12/29/2016 YOEL SENA DO, Ot 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 12/29/2016 YOEL SENA DO, Ot Z79.82 GROUP HOME (CURRENT) USE OF ASPIRIN 12/29/2016 YOEL SENA DO, Ot Z79.84 GROUP HOME (CURRENT) USE OF ORAL HYPOGLYC 12/29/2016 YOEL SENA DO, Ot Z95.810 PRESENCE OF AUTOMATIC (IMPLANTABLE) CARD 12/30/2016 URBAN MALONEY Ot E78.2 MIXED HYPERLIPIDEMIA 12/30/2016 URBAN MALONEY Ot I10 ESSENTIAL (PRIMARY) HYPERTENSION 12/30/2016 URBAN MALONEY Ot I63.8 OTHER CEREBRAL INFARCTION 12/30/2016 URBAN MALONEY Ot M79.661 PAIN IN RIGHT LOWER LEG 12/30/2016 URBAN MALONEY Ot R07.9 CHEST PAIN, UNSPECIFIED 01/04/2017 Ot 784.0 HEADACHE 01/04/2017 YOEL SENA DO, Ot E11.9 TYPE 2 DIABETES MELLITUS WITHOUT COMPLIC 01/04/2017 YOEL SENA DO, Ot I10 ESSENTIAL (PRIMARY) HYPERTENSION 01/04/2017 YOEL SENA DO, Ot M47.817 SPONDYLS W/O MYELOPATHY OR RADICULOPATHY 01/04/2017 YOEL SENA DO, Ot S00.93XA CONTUSION OF UNSPECIFIED PART OF HEAD, I 01/04/2017 YOEL SENA DO, Ot S13.4XXA SPRAIN OF LIGAMENTS OF CERVICAL SPINE, I 01/04/2017 YOEL SENA DO, Ot S19.9XXA UNSPECIFIED INJURY OF NECK, INITIAL ENCO 01/04/2017 YOEL SENA DO, Ot S23.3XXA SPRAIN OF LIGAMENTS OF THORACIC SPINE, I 01/04/2017 YOEL SENA DO, Ot S30.0XXA CONTUSION OF LOWER BACK AND PELVIS, INIT 01/04/2017 YOEL SENA DO, Ot S33.5XXA SPRAIN OF LIGAMENTS OF LUMBAR SPINE, INI 01/04/2017 YOEL SENA DO, Ot W18.2XXA FALL IN (INTO) SHOWER OR EMPTY BATHTUB, 01/04/2017 YOEL SENA DO, Ot Y92.002 BATHRM OF [facility] 01/04/2017 YOEL SENA DO, Ot Y93.E1 ACTIVITY, PERSONAL BATHING AND SHOWERING 01/04/2017 YOEL SENA DO, Ot Y99.8 OTHER EXTERNAL CAUSE STATUS 01/04/2017 YOEL SENA DO, Ot 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 01/04/2017 YOEL SENA DO, Ot 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 01/04/2017 YOEL SENA DO, Ot Z79.84 GROUP HOME (CURRENT) USE OF ORAL HYPOGLYC 01/04/2017 YOEL SENA DO, Ot Z95.810 PRESENCE OF AUTOMATIC (IMPLANTABLE) CARD 01/18/2017 URBAN MALONEY Ot E78.2 MIXED HYPERLIPIDEMIA 01/18/2017 URBAN MALONEY Ot I10 ESSENTIAL (PRIMARY) HYPERTENSION 01/18/2017 URBAN MALONEY Ot I63.8 OTHER CEREBRAL INFARCTION 01/18/2017 URBAN MALONEY Ot M79.661 PAIN IN RIGHT LOWER LEG 01/18/2017 URBAN MALONEY Ot R07.9 CHEST PAIN, UNSPECIFIED 01/18/2017 ROSANA ROSADO APRN Ot E11.9 TYPE 2 DIABETES MELLITUS WITHOUT COMPLIC 01/18/2017 ROSANA ROSADO APRN Ot I10 ESSENTIAL (PRIMARY) HYPERTENSION 01/18/2017 ROSANA ROSADO APRN Ot R11.2 NAUSEA WITH VOMITING, UNSPECIFIED 01/18/2017 ROSANA ROSADO APRN Ot R55 SYNCOPE AND COLLAPSE 01/18/2017 ROSANA ROSADO APRN Ot 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 01/18/2017 ROSANA ROSADO APRN Ot Z79.84 METALLOGRAPHIC TECHNICIAN (CURRENT) USE OF ORAL HYPOGLYC 01/18/2017 ROSANA ROSADO APRN Ot Z79.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 01/18/2017 ROSANA ROSADO APRN Ot Z95.810 PRESENCE OF AUTOMATIC (IMPLANTABLE) CARD 01/19/2017 ROSANA ROSADO APRN Ot E11.9 TYPE 2 DIABETES MELLITUS WITHOUT COMPLIC 01/19/2017 ROSANA ROSADO APRN Ot I10 ESSENTIAL (PRIMARY) HYPERTENSION 01/19/2017 ROSANA ROSADO APRN Ot R11.2 NAUSEA WITH VOMITING, UNSPECIFIED 01/19/2017 ROSANA ROSADO APRN Ot R55 SYNCOPE AND COLLAPSE 01/19/2017 ROSANA ROSADO APRN Ot 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 01/19/2017 ROSANA ROSADO APRN Ot Z79.84 GROUP HOME (CURRENT) USE OF ORAL HYPOGLYC 01/19/2017 ROSANA ROSADO APRN Ot Z79.899 OTHER GROUP HOME (CURRENT) DRUG THERAPY 01/19/2017 ROSANA ROSADO APRN Ot Z95.810 PRESENCE OF AUTOMATIC (IMPLANTABLE) CARD 01/20/2017 ROSANA ROSADO APRN Ot E11.9 TYPE 2 DIABETES MELLITUS WITHOUT COMPLIC 01/20/2017 ROSANA ROSADO APRN Ot I10 ESSENTIAL (PRIMARY) HYPERTENSION 01/20/2017 ROSANA ROSADO APRN Ot R11.2 NAUSEA WITH VOMITING, UNSPECIFIED 01/20/2017 ROSANA ROSADO APRN Ot R55 SYNCOPE AND COLLAPSE 01/20/2017 ROSANA ROSADO APRN Ot Z79.02 GROUP HOME (CURRENT) USE OF ANTITHROMBOTI 01/20/2017 ROSANA ROSADO APRN Ot Z79.84 METALLOGRAPHIC TECHNICIAN (CURRENT) USE OF ORAL HYPOGLYC 01/20/2017 ROSANA ROSADO APRN Ot Z79.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 01/20/2017 ROSANA ROSADO APRN Ot Z95.810 PRESENCE OF AUTOMATIC (IMPLANTABLE) CARD 01/26/2017 URBAN MALONEY Ot E78.2 MIXED HYPERLIPIDEMIA 01/26/2017 URBAN MALONEY Ot I10 ESSENTIAL (PRIMARY) HYPERTENSION 01/26/2017 URBAN MALONEY Ot I63.8 OTHER CEREBRAL INFARCTION 01/26/2017 URBAN MALONEY Ot M79.661 PAIN IN RIGHT LOWER LEG 01/26/2017 URBAN MALONEY Ot R07.9 CHEST PAIN, UNSPECIFIED 03/27/2017 MARLO KHOURY DO Ot E11.9 TYPE 2 DIABETES MELLITUS WITHOUT COMPLIC 03/27/2017 MARLO KHOURY DO Ot G89.29 OTHER CHRONIC PAIN 03/27/2017 MARLO KHOURY DO Ot I10 ESSENTIAL (PRIMARY) HYPERTENSION 03/27/2017 MARLO KHOURY DO Ot J44.9 CHRONIC OBSTRUCTIVE PULMONARY DISEASE, U 03/27/2017 MARLO KHOURY DO Ot M54.5 LOW BACK PAIN 03/27/2017 MARLO KHOURY DO Ot R06.02 SHORTNESS OF BREATH 03/27/2017 MARLO KHOURY DO Ot R07.9 CHEST PAIN, UNSPECIFIED 03/27/2017 MARLO KHOURY DO Ot R11.0 NAUSEA 03/27/2017 MARLO KHOURY DO Ot R51 HEADACHE 03/27/2017 MARLO KHOURY DO Ot 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 03/27/2017 MARLO KHOURY DO Ot Z79.82 GROUP HOME (CURRENT) USE OF ASPIRIN 03/27/2017 MARLO KHOURY DO Ot Z79.84 METALLOGRAPHIC TECHNICIAN (CURRENT) USE OF ORAL HYPOGLYC 03/27/2017 MARLO KHOURY DO Ot Z79.891 GROUP HOME (CURRENT) USE OF OPIATE ANALGE 03/27/2017 MARLO KHOURY DO Ot Z79.899 OTHER GROUP HOME (CURRENT) DRUG THERAPY 03/27/2017 MARLO KHOURY DO Ot Z86.73 PRSNL HX OF TIA (TIA), AND CEREB INFRC W 03/27/2017 MARLO KHOURY DO Ot Z95.810 PRESENCE OF AUTOMATIC (IMPLANTABLE) CARD 03/27/2017 MARLO KHOURY DO Ot E11.9 TYPE 2 DIABETES MELLITUS WITHOUT COMPLIC 03/27/2017 MARLO KHOURY DO Ot G89.29 OTHER CHRONIC PAIN 03/27/2017 MARLO KHOURY DO Ot I10 ESSENTIAL (PRIMARY) HYPERTENSION 03/27/2017 MARLO KHOURY DO Ot J44.9 CHRONIC OBSTRUCTIVE PULMONARY DISEASE, U 03/27/2017 MARLO KHOURY DO Ot M54.5 LOW BACK PAIN 03/27/2017 MARLO KHOURY DO Ot R06.02 SHORTNESS OF BREATH 03/27/2017 MARLO KHOURY DO Ot R07.9 CHEST PAIN, UNSPECIFIED 03/27/2017 MARLO KHOURY DO Ot R11.0 NAUSEA 03/27/2017 SARAH KHOURY DOI Ot R51 HEADACHE 03/27/2017 MARLO KHOURY DO Ot Z79.02 GROUP HOME (CURRENT) USE OF ANTITHROMBOTI 03/27/2017 SARAH KHOURY DOI Ot Z79.82 GROUP HOME (CURRENT) USE OF ASPIRIN 03/27/2017 SARAH KHOURY DOI Ot Z79.84 GROUP HOME (CURRENT) USE OF ORAL HYPOGLYC 03/27/2017 MARLO KHOURY DO Ot Z79.891 METALLOGRAPHIC TECHNICIAN (CURRENT) USE OF OPIATE ANALGE 03/27/2017 MARLO KHOURY DO Ot Z79.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 03/27/2017 MARLO KHOURY DO Ot Z86.73 PRSNL HX OF TIA (TIA), AND CEREB INFRC W 03/27/2017 MARLO KHOURY DO Ot Z95.810 PRESENCE OF AUTOMATIC (IMPLANTABLE) CARD 04/01/2017 MARLO KHOURY DO Ot E11.9 TYPE 2 DIABETES MELLITUS WITHOUT COMPLIC 04/01/2017 MARLO KHOURY DO Ot G89.29 OTHER CHRONIC PAIN 04/01/2017 MARLO KHOURY DO Ot I10 ESSENTIAL (PRIMARY) HYPERTENSION 04/01/2017 MARLO KHOURY DO Ot J44.9 CHRONIC OBSTRUCTIVE PULMONARY DISEASE, U 04/01/2017 MARLO KHOURY DO Ot M54.5 LOW BACK PAIN 04/01/2017 MARLO KHOURY DO Ot R06.02 SHORTNESS OF BREATH 04/01/2017 MARLO KHOURY DO Ot R07.9 CHEST PAIN, UNSPECIFIED 04/01/2017 MARLO KHOURY DO Ot R11.0 NAUSEA 04/01/2017 SARAH KHOURY DOI Ot R51 HEADACHE 04/01/2017 MARLO KHOURY DO Ot 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 04/01/2017 MARLO KHOURY DO Ot 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 04/01/2017 MARLO KHOURY DO Ot Z79.84 METALLOGRAPHIC TECHNICIAN (CURRENT) USE OF ORAL HYPOGLYC 04/01/2017 MARLO KHOURY DO Ot Z79.891 GROUP HOME (CURRENT) USE OF OPIATE ANALGE 04/01/2017 MARLO KHOURY DO Ot Z79.899 OTHER GROUP HOME (CURRENT) DRUG THERAPY 04/01/2017 MARLO KHOURY DO Ot Z86.73 PRSNL HX OF TIA (TIA), AND CEREB INFRC W 04/01/2017 MARLO KHOURY DO Ot Z95.810 PRESENCE OF AUTOMATIC (IMPLANTABLE) CARD 04/06/2017 Ot 784.0 HEADACHE 06/06/2017 Ot 784.0 HEADACHE Procedures There is no data. Results Test Result Range Complete urinalysis with reflex to culture - 05/26/16 12:24 Urine color determination YELLOW NRG Urine clarity determination CLEAR NRG Urine pH measurement by test strip 5 5-9 Specific gravity of urine by test strip 1.020 1.016- 1.022 Urine protein assay by test strip, semi-quantitative 1+ NEGATIVE Urine glucose detection by automated test strip NEGATIVE NEGATIVE Erythrocytes detection in urine sediment by light microscopy NEGATIVE NEGATIVE Urine ketones detection by automated test strip NEGATIVE NEGATIVE Urine nitrite detection by test strip NEGATIVE NEGATIVE Urine total bilirubin detection by test strip 1+ NEGATIVE Urine urobilinogen measurement by automated test strip (mass/volume) 1 mg/dL NORMAL Urine leukocyte esterase detection by dipstick 3+ NEGATIVE Automated urine sediment erythrocyte count by microscopy (number/high power field) NONE NRG Automated urine sediment leukocyte count by microscopy (number/high power field ) [HPF] NRG Bacteria detection in urine sediment by light microscopy MODERATE NRG Squamous epithelial cells detection in urine sediment by light microscopy 2-5 NRG Crystals detection in urine sediment by light microscopy NONE NRG Casts detection in urine sediment by light microscopy NONE NRG Mucus detection in urine sediment by light microscopy MODERATE NRG Complete urinalysis with reflex to culture YES NRG Bacterial urine culture - 05/26/16 12:24 Bacterial urine culture [id number] NRG COLONY COUNT <10,000 NRG URINE CULTURE RESULTS PLUS NRG Automated blood complete blood count (hemogram) panel - 05/26/16 12:25 Blood leukocytes automated count (number/volume) 5.3 10*3/uL 4.3-11.0 Blood erythrocytes automated count (number/volume) 4.24 10*6/uL 4.35-5.85 Venous blood hemoglobin measurement (mass/volume) 12.6 g/dL 11.5-16.0 Blood hematocrit (volume fraction) 38 % 35-52 Automated erythrocyte mean corpuscular volume 89 [foz_us] 80-99 Automated erythrocyte mean corpuscular hemoglobin (mass per erythrocyte) 30 pg 25-34 Automated erythrocyte mean corpuscular hemoglobin concentration measurement ( mass/volume) 33 g/dL 32-36 Automated erythrocyte distribution width ratio 12.6 % 10.0-14.5 Automated blood platelet count (count/volume) 218 10*3/uL 130-400 Automated blood platelet mean volume measurement 9.8 [foz_us] 7.4-10.4 Comprehensive metabolic panel - 05/26/16 12:25 Serum or plasma sodium measurement (moles/volume) 141 mmol/L 135-145 Serum or plasma potassium measurement (moles/volume) 4.2 mmol/L 3.6-5.0 Serum or plasma chloride measurement (moles/volume) 105 mmol/L 98-107 Carbon dioxide 28 mmol/L 21-32 Serum or plasma anion gap determination (moles/volume) 8 mmol/L 5-14 Serum or plasma urea nitrogen measurement (mass/volume) 9 mg/dL 7-18 Serum or plasma creatinine measurement (mass/volume) 1.03 mg/dL 0.60-1.30 Serum or plasma urea nitrogen/creatinine mass ratio 9 NRG Serum or plasma creatinine measurement with calculation of estimated glomerular filtration rate 53 NRG Serum or plasma glucose measurement (mass/volume) 139 mg/dL 70-105 Serum or plasma calcium measurement (mass/volume) 9.8 mg/dL 8.5-10.1 Serum or plasma total bilirubin measurement (mass/volume) 0.4 mg/dL 0.1-1.0 Serum or plasma alkaline phosphatase measurement (enzymatic activity/volume) 45 U/L 40-136 Serum or plasma aspartate aminotransferase measurement (enzymatic activity/ volume) 26 U/L 5-34 Serum or plasma alanine aminotransferase measurement (enzymatic activity/volume ) 19 U/L 0-55 Serum or plasma protein measurement (mass/volume) 6.4 g/dL 6.4-8.2 Serum or plasma albumin measurement (mass/volume) 4.3 g/dL 3.2-4.5 THYROID STIMULATING HORMONE - 05/26/16 12:25 THYROID STIMULATING HORMONE 1.06 u[iU]/mL 0.35-4.94 Stool occult blood screen - 05/26/16 14:33 Stool gastrointestinal hemoglobin detection NEGATIVE NEGATIVE Stool leukocytes detection by light microscopy - 05/26/16 14:33 FECAL WBC RESULTS NEGATIVE FOR WBC'S NRG FECAL NOTE FECAL LEUKOCYTES MAY BE INTERMITTENTLY PRESENT OR NRG FECAL NOTE UNEVENLY DISTRIBUTED IN STOOL SPECIMENS, AND WBC NRG FECAL NOTE MORPHOLOGY DEGRADES DURING TRANSPORT NRG FECAL NOTE NOTE: NRG Complete blood count (CBC) with automated white blood cell (WBC) differential - 05/31/16 11:35 Blood leukocytes automated count (number/volume) 4.9 10*3/uL 4.3-11.0 Blood erythrocytes automated count (number/volume) 4.06 10*6/uL 4.35-5.85 Venous blood hemoglobin measurement (mass/volume) 12.0 g/dL 11.5-16.0 Blood hematocrit (volume fraction) 36 % 35-52 Automated erythrocyte mean corpuscular volume 88 [foz_us] 80-99 Automated erythrocyte mean corpuscular hemoglobin (mass per erythrocyte) 30 pg 25-34 Automated erythrocyte mean corpuscular hemoglobin concentration measurement ( mass/volume) 34 g/dL 32-36 Automated erythrocyte distribution width ratio 12.8 % 10.0-14.5 Automated blood platelet count (count/volume) 231 10*3/uL 130-400 Automated blood platelet mean volume measurement 9.9 [foz_us] 7.4-10.4 Automated blood neutrophils/100 leukocytes 45 % 42-75 Automated blood lymphocytes/100 leukocytes 42 % 12-44 Blood monocytes/100 leukocytes 9 % 0-12 Automated blood eosinophils/100 leukocytes 3 % 0-10 Automated blood basophils/100 leukocytes 1 % 0-10 Blood neutrophils automated count (number/volume) 2.2 10*3 1.8-7.8 Blood lymphocytes automated count (number/volume) 2.1 10*3 1.0-4.0 Blood monocytes automated count (number/volume) 0.4 10*3 0.0-1.0 Automated eosinophil count 0.1 10*3/uL 0.0-0.3 Automated blood basophil count (count/volume) 0.0 10*3/uL 0.0-0.1 Complete urinalysis with reflex to culture - 05/31/16 11:35 Urine color determination YELLOW NRG Urine clarity determination CLEAR NRG Urine pH measurement by test strip 8 5-9 Specific gravity of urine by test strip 1.015 1.016- 1.022 Urine protein assay by test strip, semi-quantitative NEGATIVE NEGATIVE Urine glucose detection by automated test strip NEGATIVE NEGATIVE Erythrocytes detection in urine sediment by light microscopy NEGATIVE NEGATIVE Urine ketones detection by automated test strip NEGATIVE NEGATIVE Urine nitrite detection by test strip NEGATIVE NEGATIVE Urine total bilirubin detection by test strip NEGATIVE NEGATIVE Urine urobilinogen measurement by automated test strip (mass/volume) 1 mg/dL NORMAL Urine leukocyte esterase detection by dipstick 1+ NEGATIVE Automated urine sediment erythrocyte count by microscopy (number/high power field) NONE NRG Automated urine sediment leukocyte count by microscopy (number/high power field ) RARE NRG Bacteria detection in urine sediment by light microscopy NEGATIVE NRG Squamous epithelial cells detection in urine sediment by light microscopy RARE NRG Crystals detection in urine sediment by light microscopy NONE NRG Casts detection in urine sediment by light microscopy NONE NRG Mucus detection in urine sediment by light microscopy NEGATIVE NRG Complete urinalysis with reflex to culture NO NRG Comprehensive metabolic panel - 05/31/16 11:35 Serum or plasma sodium measurement (moles/volume) 138 mmol/L 135-145 Serum or plasma potassium measurement (moles/volume) 4.3 mmol/L 3.6-5.0 Serum or plasma chloride measurement (moles/volume) 104 mmol/L 98-107 Carbon dioxide 23 mmol/L 21-32 Serum or plasma anion gap determination (moles/volume) 11 mmol/L 5-14 Serum or plasma urea nitrogen measurement (mass/volume) 9 mg/dL 7-18 Serum or plasma creatinine measurement (mass/volume) 1.06 mg/dL 0.60-1.30 Serum or plasma urea nitrogen/creatinine mass ratio 8 NRG Serum or plasma creatinine measurement with calculation of estimated glomerular filtration rate 52 NRG Serum or plasma glucose measurement (mass/volume) 119 mg/dL 70-105 Serum or plasma calcium measurement (mass/volume) 9.6 mg/dL 8.5-10.1 Serum or plasma total bilirubin measurement (mass/volume) 0.5 mg/dL 0.1-1.0 Serum or plasma alkaline phosphatase measurement (enzymatic activity/volume) 43 U/L 40-136 Serum or plasma aspartate aminotransferase measurement (enzymatic activity/ volume) 36 U/L 5-34 Serum or plasma alanine aminotransferase measurement (enzymatic activity/volume ) 26 U/L 0-55 Serum or plasma protein measurement (mass/volume) 6.4 g/dL 6.4-8.2 Serum or plasma albumin measurement (mass/volume) 4.2 g/dL 3.2-4.5 Complete blood count (CBC) with automated white blood cell (WBC) differential - 01/18/17 15:50 Blood leukocytes automated count (number/volume) 9.2 10*3/uL 4.3-11.0 Blood erythrocytes automated count (number/volume) 3.79 10*6/uL 4.35-5.85 Venous blood hemoglobin measurement (mass/volume) 11.6 g/dL 11.5-16.0 Blood hematocrit (volume fraction) 35 % 35-52 Automated erythrocyte mean corpuscular volume 92 [foz_us] 80-99 Automated erythrocyte mean corpuscular hemoglobin (mass per erythrocyte) 31 pg 25-34 Automated erythrocyte mean corpuscular hemoglobin concentration measurement ( mass/volume) 33 g/dL 32-36 Automated erythrocyte distribution width ratio 13.6 % 10.0-14.5 Automated blood platelet count (count/volume) 252 10*3/uL 130-400 Automated blood platelet mean volume measurement 9.6 [foz_us] 7.4-10.4 Automated blood neutrophils/100 leukocytes 63 % 42-75 Automated blood lymphocytes/100 leukocytes 28 % 12-44 Blood monocytes/100 leukocytes 7 % 0-12 Automated blood eosinophils/100 leukocytes 1 % 0-10 Automated blood basophils/100 leukocytes 0 % 0-10 Blood neutrophils automated count (number/volume) 5.8 10*3 1.8-7.8 Blood lymphocytes automated count (number/volume) 2.6 10*3 1.0-4.0 Blood monocytes automated count (number/volume) 0.7 10*3 0.0-1.0 Automated eosinophil count 0.1 10*3/uL 0.0-0.3 Automated blood basophil count (count/volume) 0.0 10*3/uL 0.0-0.1 Comprehensive metabolic panel - 01/18/17 15:50 Serum or plasma sodium measurement (moles/volume) 141 mmol/L 135-145 Serum or plasma potassium measurement (moles/volume) 4.0 mmol/L 3.6-5.0 Serum or plasma chloride measurement (moles/volume) 105 mmol/L 98-107 Carbon dioxide 29 mmol/L 21-32 Serum or plasma anion gap determination (moles/volume) 7 mmol/L 5-14 Serum or plasma urea nitrogen measurement (mass/volume) 8 mg/dL 7-18 Serum or plasma creatinine measurement (mass/volume) 0.88 mg/dL 0.60-1.30 Serum or plasma urea nitrogen/creatinine mass ratio 9 NRG Serum or plasma creatinine measurement with calculation of estimated glomerular filtration rate > NRG Serum or plasma glucose measurement (mass/volume) 143 mg/dL 70-105 Serum or plasma calcium measurement (mass/volume) 9.2 mg/dL 8.5-10.1 Serum or plasma total bilirubin measurement (mass/volume) 0.5 mg/dL 0.1-1.0 Serum or plasma alkaline phosphatase measurement (enzymatic activity/volume) 61 U/L 40-136 Serum or plasma aspartate aminotransferase measurement (enzymatic activity/ volume) 20 U/L 5-34 Serum or plasma alanine aminotransferase measurement (enzymatic activity/volume ) 14 U/L 0-55 Serum or plasma protein measurement (mass/volume) 6.6 g/dL 6.4-8.2 Serum or plasma albumin measurement (mass/volume) 4.1 g/dL 3.2-4.5 Serum or plasma troponin i.cardiac measurement (mass/volume) - 01/18/17 15:50 Serum or plasma troponin i.cardiac measurement (mass/volume) < ng/ mL <0.30 Lipase - 01/18/17 15:50 Lipase 44 U/L 8-78 Complete urinalysis with reflex to culture - 01/18/17 16:15 Urine color determination YELLOW NRG Urine clarity determination CLEAR NRG Urine pH measurement by test strip 8 5-9 Specific gravity of urine by test strip 1.010 1.016- 1.022 Urine protein assay by test strip, semi-quantitative NEGATIVE NEGATIVE Urine glucose detection by automated test strip NEGATIVE NEGATIVE Erythrocytes detection in urine sediment by light microscopy NEGATIVE NEGATIVE Urine ketones detection by automated test strip NEGATIVE NEGATIVE Urine nitrite detection by test strip NEGATIVE NEGATIVE Urine total bilirubin detection by test strip NEGATIVE NEGATIVE Urine urobilinogen measurement by automated test strip (mass/volume) NORMAL NORMAL Urine leukocyte esterase detection by dipstick NEGATIVE NEGATIVE Automated urine sediment erythrocyte count by microscopy (number/high power field) NONE NRG Automated urine sediment leukocyte count by microscopy (number/high power field ) NONE NRG Bacteria detection in urine sediment by light microscopy NEGATIVE NRG Squamous epithelial cells detection in urine sediment by light microscopy RARE NRG Crystals detection in urine sediment by light microscopy NONE NRG Casts detection in urine sediment by light microscopy NONE NRG Mucus detection in urine sediment by light microscopy NEGATIVE NRG Complete urinalysis with reflex to culture NO NRG Comprehensive metabolic panel - 03/26/17 15:43 Serum or plasma sodium measurement (moles/volume) 140 mmol/L 135-145 Serum or plasma potassium measurement (moles/volume) 4.1 mmol/L 3.6-5.0 Serum or plasma chloride measurement (moles/volume) 103 mmol/L 98-107 Carbon dioxide 23 mmol/L 21-32 Serum or plasma anion gap determination (moles/volume) 14 mmol/L 5-14 Serum or plasma urea nitrogen measurement (mass/volume) 12 mg/dL 7-18 Serum or plasma creatinine measurement (mass/volume) 0.79 mg/dL 0.60-1.30 Serum or plasma urea nitrogen/creatinine mass ratio 15 NRG Serum or plasma creatinine measurement with calculation of estimated glomerular filtration rate > NRG Serum or plasma glucose measurement (mass/volume) 142 mg/dL 70-105 Serum or plasma calcium measurement (mass/volume) 8.9 mg/dL 8.5-10.1 Serum or plasma total bilirubin measurement (mass/volume) 0.4 mg/dL 0.1-1.0 Serum or plasma alkaline phosphatase measurement (enzymatic activity/volume) 70 U/L 40-136 Serum or plasma aspartate aminotransferase measurement (enzymatic activity/ volume) 29 U/L 5-34 Serum or plasma alanine aminotransferase measurement (enzymatic activity/volume ) 24 U/L 0-55 Serum or plasma protein measurement (mass/volume) 6.6 g/dL 6.4-8.2 Serum or plasma albumin measurement (mass/volume) 4.0 g/dL 3.2-4.5 Complete blood count (CBC) with automated white blood cell (WBC) differential - 03/26/17 15:43 Blood leukocytes automated count (number/volume) 9.7 10*3/uL 4.3-11.0 Blood erythrocytes automated count (number/volume) 4.02 10*6/uL 4.35-5.85 Venous blood hemoglobin measurement (mass/volume) 12.2 g/dL 11.5-16.0 Blood hematocrit (volume fraction) 37 % 35-52 Automated erythrocyte mean corpuscular volume 91 [foz_us] 80-99 Automated erythrocyte mean corpuscular hemoglobin (mass per erythrocyte) 30 pg 25-34 Automated erythrocyte mean corpuscular hemoglobin concentration measurement ( mass/volume) 33 g/dL 32-36 Automated erythrocyte distribution width ratio 12.4 % 10.0-14.5 Automated blood platelet count (count/volume) 208 10*3/uL 130-400 Automated blood platelet mean volume measurement 9.9 [foz_us] 7.4-10.4 Automated blood neutrophils/100 leukocytes 71 % 42-75 Automated blood lymphocytes/100 leukocytes 21 % 12-44 Blood monocytes/100 leukocytes 7 % 0-12 Automated blood eosinophils/100 leukocytes 1 % 0-10 Automated blood basophils/100 leukocytes 0 % 0-10 Blood neutrophils automated count (number/volume) 6.9 10*3 1.8-7.8 Blood lymphocytes automated count (number/volume) 2.0 10*3 1.0-4.0 Blood monocytes automated count (number/volume) 0.7 10*3 0.0-1.0 Automated eosinophil count 0.1 10*3/uL 0.0-0.3 Automated blood basophil count (count/volume) 0.0 10*3/uL 0.0-0.1 PT panel in platelet poor plasma by coagulation assay - 03/26/17 15:43 Prothrombin time (PT) in platelet poor plasma by coagulation assay 11.7 s 12.2-14.7 INR in platelet poor plasma or blood by coagulation assay 0.9 0.8-1.4 Encounters ACCT No. Visit Date/Time Discharge Status Pt. Type Provider Facility Loc./Unit Complaint [id number] 03/26/2017 18:05:00 03/27/2017 12:04:00 DIS Inpatient MARLO KHOURY DO [facility] 4TH HEADACHE AND POSSIBLE TIA [id number] 01/18/2017 15:41:00 01/18/2017 18:39:00 DIS Emergency ROSANA ROSADO APRN [facility] ER SYNCOPE [id number] 12/29/2016 13:01:00 12/29/2016 15:27:00 DIS Emergency YOEL SENA DO [facility] ER FALL BACK/LEG/HEAD INJURY [id number] 11/23/2016 13:55:00 11/23/2016 23:59:59 CLS Outpatient URBAN MALONEY [facility] RAD CVA,HTN,HLP [id number] 05/31/2016 10:52:00 05/31/2016 13:15:00 DIS Emergency RUSSELL SMITH JOAO [facility] ER NAUSEA/VOMITING/UTI [id number] 05/27/2016 09:27:00 05/27/2016 23:59:59 CLS Outpatient IRASEMA SMITH MD [facility] RAD WEIGHT LOSS, ABDOMINAL PAIN, NAUSEA [id number] 05/26/2016 12:06:00 05/26/2016 23:59:59 CLS Outpatient IRASEMA SMITH MD [facility] LAB WEIGHT LOSS [id number] 02/11/2016 11:12:00 02/11/2016 23:59:59 CLS Outpatient IRASEMA SMITH MD [facility] RAD FREQUENT INTERMITTENT BRAIN PAIN [id number] 01/16/2016 10:01:00 01/16/2016 23:59:59 CLS Outpatient RHONA SMITH [facility] LAB DIABETES [id number] 12/24/2015 10:22:00 12/24/2015 11:29:00 DIS Emergency FELIZ FELIX MD [facility] ER LEFT CALF PAIN [id number] 06/05/2015 12:11:00 06/05/2015 23:59:59 CLS Outpatient IRASEMA SMITH MD [facility] RAD NECK PAIN AND SWELLING [id number] 06/03/2015 08:24:00 06/03/2015 23:59:59 CLS Outpatient TRAVIS JENNINGS MD [facility] CARD CVA,HTN,HLP,CP [id number] 02/15/2015 13:59:00 02/15/2015 23:59:59 CLS Outpatient TRAVIS JENNINGS MD [facility] CARD CVA,HTN,HLP.CP [id number] 02/02/2015 13:49:00 02/06/2015 16:58:00 DIS Inpatient IRASEMA SMITH MD [facility] SURGICAL GENERALIZED WEAKNESS ,UTI,HYPOMAGNESEMIA [id number] 01/26/2015 21:28:00 01/26/2015 23:32:00 DIS Emergency WILLIAM QUINN MD [facility] ER COUGH,SOA [id number] 01/21/2015 11:18:00 01/22/2015 11:45:00 DIS Inpatient IRASEMA SMITH MD [facility] 4TH VOL DEPLETION,COUGH, EXHAUSTION [id number] 01/14/2015 08:28:00 01/14/2015 23:59:59 CLS Outpatient IRASEMA SMITH MD [facility] RAD PAIN IN LEFT BREAST [id number] 12/19/2014 09:39:00 12/19/2014 23:59:59 CLS Outpatient IRASEMA SMITH MD [facility] RAD PAIN BY COMPRESSION [id number] 10/08/2014 12:14:00 10/10/2014 09:55:00 DIS Inpatient IRASEMA SMITH MD [facility] 4TH FEVER [id number] 05/30/2014 07:47:00 05/30/2014 23:59:59 CLS Outpatient TRAVIS JENNINGS MD [facility] CATH CVA [id number] 05/12/2014 10:46:00 05/12/2014 12:45:00 DIS Emergency REVA MA DO K [facility] ER NAUSEA BLOOD IN URINE [id number] 03/15/2014 10:43:00 03/15/2014 23:59:59 CLS Outpatient IRASEMA SMITH MD [facility] LAB HYPERGLYCEMIA [id number] 03/13/2014 12:30:00 03/13/2014 23:59:59 CLS Outpatient URBAN MALONEY [facility] LAB CVA,HTN, HYPERLIPIDEMIA [id number] 02/21/2014 11:26:00 02/21/2014 13:27:00 DIS Outpatient DICK GABRIEL, TRAVIS Pastor [facility] CATH CVA,HTN,HYPOTHYROIDISM [id number] 02/16/2014 11:40:00 02/20/2014 12:25:00 DIS Inpatient SELWYN GABRIEL, DUSTIN Vargas [facility] IRF CVA,RENAL INSUFFICIENCY, HYPERGLYCEMIA, [id number] 02/15/2014 00:13:00 02/16/2014 11:40:00 DIS Inpatient IRASEMA SMITH MD [facility] 4TH CVA,RENAL INSUFFICIENCY, HYPERGLYCEMIA,HYPOTHYROIDI [id number] 12/25/2013 07:57:00 12/25/2013 10:50:00 DIS Outpatient MICHELLE KWON MD [facility] DYSPHAGIA [id number] 12/20/2013 07:19:00 12/20/2013 23:59:59 CLS Outpatient MICHELLE KWON MD [facility] PREOP DYSPHAGIA [id number] 07/24/2013 07:46:00 07/24/2013 23:59:59 CLS Outpatient IRASEMA SMITH MD [facility] RAD DECREASING VISION, HX CVA 1 YEAR AGO [id number] 07/05/2013 14:55:00 07/07/2013 10:05:00 DIS Inpatient IRASEMA SMITH MD [facility] CSD CHEST PAIN [id number] 05/22/2013 07:49:00 05/22/2013 23:59:59 CLS Outpatient MICHELLE KWON MD [facility] SCREENING,ABD PAIN [id number] 05/18/2013 07:16:00 05/18/2013 23:59:59 CLS Outpatient MICHELLE KWON MD [facility] PREOP SCREENING/ ABDOMINAL PAIN [id number] 08/24/2017 04:48:00 ACT Emergency MURRAY VILLEGAS MD [facility] ER SOB,POSS PNEUMONIA [id number] 10/08/2014 12:11:00 Document Registration [id number] 10/08/2014 12:10:00 Document Registration [id number] 09/14/2012 14:35:00 Document Registration [id number] 06/15/2012 14:45:00 Document Registration [id number] 06/15/2012 11:51:00 Document Registration [id number] 05/24/2012 16:27:00 Document Registration [id number] 2012 11:25:00 Document Registration [id number] 04/01/2012 12:31:00 Document Registration [id number] 11/26/2011 16:12:00 Document Registration [id number] 04/06/2011 16:01:00 Document Registration [id number] 03/04/2011 13:28:00 Document Registration [id number] 11/21/2010 07:31:00 Document Registration [id number] 11/10/2010 11:00:00 Document Registration [id number] 10/29/2010 15:00:00 Document Registration [id number] 10/23/2009 08:03:00 Document Registration [id number] 10/18/2009 07:55:00 Document Registration [id number] 09/25/2009 15:20:00 Document Registration [id number] 08/02/2009 10:40:00 Document Registration [id number] 06/07/2009 11:07:00 Document Registration [id number] 05/08/2009 09:07:00 Document Registration
[2017-08-24] MEDS ORDERED: RT-ALBUTEROL/IPRATROPIUM 3 ML (DUONEB) VIAL INH ONE (05:00)
--- NOTE | 2017-08-24 05:04 | ED Respiratory ---
General Stated Complaint: SOB,POSS PNEUMONIA Source: patient, family (daughter) Exam Limitations: no limitations History of Present Illness Time seen by provider: 04:52 Initial Comments Patient presents ER by private conveyance with chief complaint shortness of breath cough nausea and vomiting. The shortness of breath and malaise started about for 5 days ago and is progressively gotten worse. She is a history of asthma as well as fov-svbpvqc-bndakvmyr diabetes. She's been using her albuterol inhaler 3 times a day. She has also been using Motrin because she's felt chills but has no thermometer to check for fever. She started getting nauseated the last day and then this morning she got up and vomited so she came to the ER. She has not seen a doctor for this particular illness yet. She is not having diarrhea. No else is sick around her and she has no recent history of travel. She states that the vomiting began after a coughing fit. Her coughing has been productive of phlegm. The patient's daughter says they've been using everything awkg-gtp-iblkpcy that confined to include cough remedies, Mucinex, Tylenol and Motrin. Allergies and Home Medications Allergies Coded Allergies: enalapril (Verified Allergy, Unknown, RASH, 01/21/15) morphine (Verified Allergy, Unknown, RASH, 01/21/15) pneumococcal vaccine (Verified Allergy, Unknown, 01/21/15) Home Medications Alogliptin Benzoate 25 Mg Tablet, (Reported) Aspirin 81 Mg Tabec, 81 MG PO DAILY, (Reported) Atorvastatin Calcium 80 Mg Tablet, 40 MG PO DAILY, (Reported) Clopidogrel Bisulfate 75 Mg Tablet, 75 MG PO DAILY, (Reported) Escitalopram Oxalate 20 Mg Tablet, 20 MG PO DAILY, (Reported) Hydrocodone Bit/Acetaminophen 1 Tab Tablet, 1 TAB PO QID PRN for PAIN, (Reported ) Levothyroxine Sodium 50 Mcg Tablet, (Reported) Metformin Hcl 500 Mg Tablet, 500 MG PO BID, (Reported) Metoprolol Succinate 50 Mg Tab.sr.24h, 50 MG PO DAILY, (Reported) Pantoprazole Sodium 40 Mg Tablet.dr, 40 MG PO DAILY, (Reported) Trazodone Hcl 50 Mg Tablet, 50 MG PO HS, (Reported) Constitutional: chills, No fever, malaise EENTM: No ear pain, No eye pain Respiratory: cough, phlegm, short of breath, No stridor, wheezing Cardiovascular: No chest pain, No edema, No Hx of Intervention, No palpitations , No syncope, No vascular heart diseas Gastrointestinal: No abdominal pain, No constipation, nausea, vomiting Genitourinary: No discharge, No dysuria Skin: No pruritus, No rash Past Iqgsswh-Wkhzeb-Rdzlxr Hx Patient Social History Alcohol Use: Denies Use Recreational Drug Use: No Smoking Status: Never a Smoker 2nd Hand Smoke Exposure: No Recent Foreign Travel: No Contact w/Someone Who Travel: No Recent Hopitalizations: No Immunizations Up To Date Tetanus Booster (TDap): Unknown PED Vaccines UTD: No Date of Pneumonia Vaccine: Feb 15, 2007 Date of Influenza Vaccine: May 22, 2012 Seasonal Allergies Seasonal Allergies: No Surgeries History of Surgeries: Yes (LINQ Reveal implantation) Surgeries: Defibrillator, Gallbladder, Hysterectomy Respiratory History of Respiratory Disorde: Yes Respiratory Disorders: Asthma Currently Using CPAP: No Currently Using BIPAP: No Cardiovascular History of Cardiac Disorders: Yes (cva X2, linx recording) Cardiac Disorders: Deep Vein Thrombosis, High Cholesterol, Hypertension Neurological History of Neurological Disord: Yes (CVA with memory issues, poor vision, dizziness) Neurological Disorders: Stroke Reproductive System Hx Reproductive Disorders: Yes (HYSTERECTOMY) Sexually Transmitted Disease: No HIV/AIDS: No 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 Genitourinary History of Genitourinary Disor: No Genitourinary Disorders: Kidney Infection, UTI-Chronic Gastrointestinal History of Gastrointestinal Di: Yes Gastrointestinal Disorders: Gastroesophageal Reflux, Chronic Constipation, Irritable Bowel Musculoskeletal History of Musculoskeletal Dis: No (BACK SURGERY) Musculoskeletal Disorders: Arthritis Endocrine History of Endocrine Disorders: Yes Endocrine Disorders: Hypothyroidsim, Diabetes, Non-Insulin dep HEENT History of HEENT Disorders: No Loss of Vision: Bilateral Hearing Impairment: Denies Cancer History of Cancer: No Psychosocial History of Psychiatric Problem: Yes Behavioral Health Disorders: Anxiety, Depression Integumentary History of Skin or Integumenta: No Blood Transfusions History of Blood Disorders: No Adverse Reaction to a Blood Tr: No Family Medical History Significant Family History: Heart Disease, Diabetes Family Medial History: Family history: Cardiovascular disease 19 FATHER 19 MOTHER G8 BROTHER Family history: Diabetes mellitus 19 MOTHER G8 BROTHER G8 BROTHER G8 SISTER G8 SISTER G8 SISTER Physical Exam Vital Signs Vital Sign - Last 12Hours 08/24/17 04:55 Temp 98.8 Pulse 106 Resp 18 B/P (MAP) 139/84 (102) Pulse Ox 95 O2 Delivery Room Air Capillary Refill : General Appearance: WD/WN, moderate distress Eyes: Bilateral Eye Normal Inspection, Bilateral Eye PERRL, Bilateral Eye EOMI HEENT: PERRL/EOMI, normal ENT inspection Neck: non-tender, full range of motion, supple, normal inspection Respiratory: chest non-tender, lungs clear, no accessory muscle use, decreased breath sounds Cardiovascular: normal peripheral pulses, regular rate, rhythm, no edema Gastrointestinal: normal bowel sounds, soft, tenderness (epigastric) Neurologic/Psychiatric: alert, oriented x 3 Skin: normal color, warm/dry Progress/Results/Core Measures Suspected Sepsis SIRS Temperature: Pulse: Respiratory Rate: Laboratory Tests 08/24/17 05:00: White Blood Count 6.3 Blood Pressure / Mean: Laboratory Tests 08/24/17 05:00: Creatinine 0.97, Platelet Count 225, Total Bilirubin 0.2 Results/Orders Lab Results Laboratory Tests Test 08/24/17 05:00 Range/Units White Blood Count 6.3 4.3-11.0 10^3/uL Red Blood Count 4.06 L 4.35-5.85 10^6/uL Hemoglobin 12.5 11.5-16.0 G/DL Hematocrit 36 35-52 % Mean Corpuscular Volume 89 80-99 FL Mean Corpuscular Hemoglobin 31 25-34 PG Mean Corpuscular Hemoglobin Concent 35 32-36 G/DL Red Cell Distribution Width 12.7 10.0-14.5 % Platelet Count 225 130-400 10^3/uL Mean Platelet Volume 9.8 7.4-10.4 FL Neutrophils (%) (Auto) 61 42-75 % Lymphocytes (%) (Auto) 26 12-44 % Monocytes (%) (Auto) 9 0-12 % Eosinophils (%) (Auto) 3 0-10 % Basophils (%) (Auto) 1 0-10 % Neutrophils # (Auto) 3.8 1.8-7.8 X 10^3 Lymphocytes # (Auto) 1.6 1.0-4.0 X 10^3 Monocytes # (Auto) 0.6 0.0-1.0 X 10^3 Eosinophils # (Auto) 0.2 0.0-0.3 10^3/uL Basophils # (Auto) 0.0 0.0-0.1 10^3/uL Sodium Level 136 135-145 MMOL/L Potassium Level 3.9 3.6-5.0 MMOL/L Chloride Level 100 98-107 MMOL/L Carbon Dioxide Level 24 21-32 MMOL/L Anion Gap 12 5-14 MMOL/L Blood Urea Nitrogen 5 L 7-18 MG/DL Creatinine 0.97 0.60-1.30 MG/DL Estimat Glomerular Filtration Rate 57 BUN/Creatinine Ratio 5 Glucose Level 377 H 70-105 MG/DL Calcium Level 9.1 8.5-10.1 MG/DL Magnesium Level 1.4 L 1.8-2.4 MG/DL Total Bilirubin 0.2 0.1-1.0 MG/DL Aspartate Amino Transf (AST/SGOT) 33 5-34 U/L Alanine Aminotransferase (ALT/SGPT) 23 0-55 U/L Alkaline Phosphatase 63 40-136 U/L Total Protein 6.4 6.4-8.2 GM/DL Albumin 3.9 3.2-4.5 GM/DL Micro Results Microbiology 08/24/17 Influenza Types A,B Antigen (SARI) - Final, Complete My Orders Orders - MURRAY VILLEGAS Cbc With Automated Diff (08/24/17 04:56) Comprehensive Metabolic Panel (08/24/17 04:56) Magnesium (08/24/17 04:56) Chest Pa/Lat (2 View) (08/24/17 04:56) Albuterol Pre-Mix Nebs (Rt) (Proventil (08/24/17 04:56) Albuterol/Ipra Inhalation Soln (Duoneb I (08/24/17 05:00) Influenza A And B Antigens (08/24/17 04:56) Svn Sm Volume Nebulizer Rt-Rfs (08/24/17 04:56) Magnesium Oxide Tablet (Mag Ox Tablet) (08/24/17 05:30) Medications Given in ED Current Medications Medications Dose Ordered Sig/Susie Route Start Time Stop Time Status Last Admin Dose Admin Albuterol/ Ipratropium 3 ml ONCE ONCE INH 08/24/17 05:00 08/24/17 05:01 DC 08/24/17 05:12 3 ML Vital Signs/I&O Vital Sign - Last 12Hours 08/24/17 08/24/17 08/24/17 04:55 05:12 05:14 Temp 98.8 Pulse 106 Resp 18 B/P (MAP) 139/84 (102) Pulse Ox 95 97 97 O2 Delivery Room Air Room Air Room Air Capillary Refill : Progress Note #1: Time: 05:02 Progress Note Differential includes asthma exacerbation most likely by a virus. We will go ahead and check an influenza illness is afebrile the moment because her last Motrin was about 8 hours ago. We will give her a breathing treatment see if she doesn't improve some. If The chest x-ray doesn't show a pneumonia then we'll start her on some steroids. Tachycardia with a heart rate of 100 however rest of her vitals are okay. Her vomiting may be posttussive emesis versus viral gastroenteritis. Progress Note #2: Time: 05:24 Progress Note After some DuoNeb and albuterol nebulized treatments the patient is able to take deep breaths with a little bit of pleuritic pain but no wheezing; still clear open lung sounds. Her cough is less prominent. Sputum she is producing is mostly clear thin secretions. Progress Note #3: Time: 05:54 Progress Note Patient is coughing much less in her lung sounds still are good. Vitals are okay. Her heart rates accelerated but this is because of the albuterol more than likely. She feels much better and were going to attempt outpatient therapy since she can get in with her physician this week. We'll start her on a modest steroid taper and prescribe some albuterol that her daughter has a small volume nebulizer at home for that she can borrow temporarily. We'll also give her some Tessalon Perles. Diagnostic Imaging Diagonstic Imaging: Xray Plain Films/CT/US/NM/MRI: chest (2v) Comments No acute cardiopulmonary processes noted on two-view as compared to two-view chest x-ray 2014. Reviewed: Reviewed by Me Departure Impression Impression: Primary Impression: Asthma exacerbation Qualified Codes: J45.901 - Unspecified asthma with (acute) exacerbation Disposition: HOME, SELF-CARE Condition: Improved Departure-Patient Inst. Decision time for Depature: 05:55 Referrals: IRASEMA SMITH MD (PCP/Family) Primary Care Physician Patient Instructions: Asthma, Adult (DC) Add. Discharge Instructions: Call Dr. Smith at his clinic to be seen this week. Return to the ER if you're still short of breath despite breathing treatments or having a fever in excess of 102.5 Fahrenheit despite Tylenol or Motrin. 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 If you're still short of breath or having wheezing/coughing fits between breathing treatments then you may take one extra breathing treatment every 4 hours as needed. You may continue the hvvm-krj-ezvqffc medicines, vapor rubs such as Vicks or Mentholatum, humidifiers, Mucinex. Drink plenty of fluids, get some rest and pick up operator the Tessalon Perles to be taken 1 capsule every 6 hours as needed for cough. Use Tylenol 1000 mg every 8 hours and/or ibuprofen 800 mg every 8 hours as needed for body aches or fever. Take the prednisone 40 mg (2 tablets) twice a day for 2 days. Then take prednisone 20 mg (one tablet) twice a day for 3 days. Finally take prednisone 20 mg (one tablet) daily for 3 days. Scripts Prednisone (Prednisone) 20 Mg Tab 20 MG PO BID for 7 Days, #15 TAB 0 Refills Take 40 mg (2 tabs) twice a day x2 days Take 20 mg (1 tab) twice a day x3 days Take 20 mg (1 tab) daily x3 days Prov: MURRAY VILLEGAS 08/24/17 Albuterol Sulfate (Albuterol Sulfate) 2.5 Mg/3 Ml Vial.neb 2.5 MG IH Q4H Y for COUGH for 7 Days, #20 EA 0 Refills Prov: MURRAY VILLEGAS 08/24/17 Albuterol Sulfate (Albuterol Sulfate) 2.5 Mg/3 Ml Vial.neb 2.5 MG IH Q6H for 7 Days, #30 EA 0 Refills Prov: MURRAY VILLEGAS 08/24/17 Benzonatate (Tessalon Perle) 100 Mg Capsule 100 MG PO Q6H Y for COUGH, #30 CAP 0 Refills Prov: MURRAY VILLEGAS 08/24/17 Copy Copies To 1: IRASEMA SMITH MD, TITUS J Aug 24, 2017 05:04
[2017-08-24] MEDS ORDERED: ALOG25TA2 (05:09)
[2017-08-24] MEDS ORDERED: LEVO50TA6 (05:09)
[2017-08-24 05:10] LABS: BASOPHILS % (AUTO) 1 % (0-10); EOSINOPHILS # (AUTO) 0.2 10^3/uL (0.0-0.3); EOSINOPHILS % (AUTO) 3 % (0-10); LYMPHOCYTES # (AUTO) 1.6 X 10^3 (1.0-4.0); LYMPHOCYTES % (AUTO) 26 % (12-44); MEAN CORPUSCULAR HEMOGLOBIN 31 PG (25-34); MEAN CORPUSCULAR HGB CONC 35 G/DL (32-36); MEAN CORPUSCULAR VOLUME 89 FL (80-99); MEAN PLATELET VOLUME 9.8 FL (7.4-10.4); MONOCYTES # (AUTO) 0.6 X 10^3 (0.0-1.0); MONOCYTES % (AUTO) 9 % (0-12); NEUTROPHILS # (AUTO) 3.8 X 10^3 (1.8-7.8); NEUTROPHILS % (AUTO) 61 % (42-75); PLATELET COUNT 225 10^3/uL (130-400); RED BLOOD COUNT 4.06 10^6/uL (4.35-5.85); RED CELL DISTRIBUTION WIDTH 12.7 % (10.0-14.5); WHITE BLOOD COUNT 6.3 10^3/uL (4.3-11.0)
[2017-08-24 05:30] LABS: ALBUMIN 3.9 GM/DL (3.2-4.5); BILIRUBIN,TOTAL 0.2 MG/DL (0.1-1.0); CALCIUM 9.1 MG/DL (8.5-10.1); CREATININE SERUM 0.97 MG/DL (0.60-1.30); MAGNESIUM 1.4 MG/DL (1.8-2.4); POTASSIUM 3.9 MMOL/L (3.6-5.0); TOTAL PROTEIN 6.4 GM/DL (6.4-8.2)
[2017-08-24] MEDS ORDERED: MAGNESIUM OXIDE (MAG-OX)400 MG TAB PO ONE (05:30)
[2017-08-24] MEDS ORDERED: predniSONE 20 MG TAB PO ONE (06:00)
[2017-08-24] MEDS ORDERED: BENZ-13 PO (06:05)
[2017-08-24] MEDS ORDERED: ALBU2.5V4 IH ×2 (06:05)
[2017-08-24] MEDS ORDERED: PRD20T PO (06:05)
--- NOTE | 2017-08-24 06:10 | Diagnostic Imaging Report ---
INDICATION: Cough. Comparison made with prior examination 01/18/2017. PA and lateral views of the chest were obtained. FINDINGS: The heart size is normal. Mediastinum is unremarkable. There is no pleural effusion or pneumothorax. IMPRESSION: No acute cardiopulmonary abnormality. Dictated by: Dictated on workstation # [id number]
[2017-08-24 06:12] VITALS: BP 124/65
== END 2017-08-24 06:11 | disposition home or self-care (01) ==
LOC: EDUNIT# 04:46 → ER 04:48
DX: J45.901 Unspecified asthma with (acute) exacerbation (principal); E78.00 Pure hypercholesterolemia, unspecified; I10 Essential (primary) hypertension; K21.9 Gastro-esophageal reflux disease without esophagitis; M19.90 Unspecified osteoarthritis, unspecified site; E03.9 Hypothyroidism, unspecified; E11.9 Type 2 diabetes mellitus without complications; F41.9 Anxiety disorder, unspecified; F32.9 Major depressive disorder, single episode, unspecified; Z86.718 Personal history of other venous thrombosis and embolism; Z79.82 Long term (current) use of aspirin; Z82.49 Family history of ischemic heart disease and other diseases of the circulatory system; Z86.73 Personal history of transient ischemic attack (TIA), and cerebral infarction without residual deficits; Z87.440 Personal history of urinary (tract) infections; Z79.84 Long term (current) use of oral hypoglycemic drugs; Z90.710 Acquired absence of both cervix and uterus; Z87.19 Personal history of other diseases of the digestive system
CPT/HCPCS: 36415; 71020; 80053; 83735; 85025; 87804; 94640; 99283

== ENCOUNTER → 2017-12-30 | Outpatient (CLI) | payer MEDICARE, MEDICAID ==
[~2017-12-30] MED LIST changes: +ALBU2.5V4 IH; +ALOG25TA2; +BENZ-13 PO; +LEVO50TA6; +PRD20T PO
--- NOTE | 2017-12-30 14:26 | Diagnostic Imaging Report ---
PROCEDURE: CT abdomen and pelvis without contrast. TECHNIQUE: Multiple contiguous axial images were obtained through the abdomen and pelvis without the use of intravenous contrast. INDICATION: Abdominal pain with nausea and vomiting. COMPARISON: Correlation is made with prior study from 01/18/2017. FINDINGS: The lung bases are clear. No discrete liver mass is identified. The gallbladder appears to be surgically absent. The pancreas and spleen are unremarkable. No adrenal mass is detected. No renal calculi or hydronephrosis is identified. Aorta is calcified but not aneurysmal. The small and large bowel loops are normal caliber. There is moderate stool in the colon, perhaps owing to constipation. No inflammatory process is seen. There is no free fluid or fluid collection identified. Uterus appears to be surgically absent. IMPRESSION: Constipation. No acute feature in the abdomen or pelvis is identified. Dictated by: Dictated on workstation # [id number]
== END ==
LOC: RAD 14:03
PROVIDERS: ATTEND Family Medicine
DX: K59.00 Constipation, unspecified (principal); R63.4 Abnormal weight loss; R11.11 Vomiting without nausea
CPT/HCPCS: 74176

== ENCOUNTER 2018-01-05 14:01 | Emergency (ER) | payer MEDICARE, MEDICAID ==
[~2018-01-05] VITALS: Ht 157.5 cm; Wt 69.9 kg
[2018-01-05 14:30] LABS: BASOPHILS % (AUTO) 1 % (0-10); EOSINOPHILS # (AUTO) 0.2 10^3/uL (0.0-0.3); EOSINOPHILS % (AUTO) 3 % (0-10); HEMATOCRIT 40 % (35-52); HEMOGLOBIN 13.8 G/DL (11.5-16.0); LYMPHOCYTES % (AUTO) 43 % (12-44); MEAN CORPUSCULAR HEMOGLOBIN 32 PG (25-34); MEAN CORPUSCULAR HGB CONC 34 G/DL (32-36); MEAN CORPUSCULAR VOLUME 95 FL (80-99); MEAN PLATELET VOLUME 9.9 FL (7.4-10.4); MONOCYTES # (AUTO) 0.5 X 10^3 (0.0-1.0); MONOCYTES % (AUTO) 7 % (0-12); NEUTROPHILS # (AUTO) 3.3 X 10^3 (1.8-7.8); NEUTROPHILS % (AUTO) 47 % (42-75); PLATELET COUNT 240 10^3/uL (130-400); RED BLOOD COUNT 4.26 10^6/uL (4.35-5.85); RED CELL DISTRIBUTION WIDTH 13.6 % (10.0-14.5)
[2018-01-05 14:43] LABS: ALANINE AMINOTRANSFERASE 18 U/L (0-55); ALBUMIN 4.1 GM/DL (3.2-4.5); ALKALINE PHOSPHATASE 63 U/L (40-136); BILIRUBIN,TOTAL 0.5 MG/DL (0.1-1.0); BUN/CREATININE RATIO 7; CALCIUM 9.7 MG/DL (8.5-10.1); CARBON DIOXIDE 27 MMOL/L (21-32); CHLORIDE 105 MMOL/L (98-107); CREATININE SERUM 0.85 MG/DL (0.60-1.30); GFR ESTIMATED > 60; GLUCOSE 191 MG/DL (70-105); MAGNESIUM 1.7 MG/DL (1.8-2.4); POTASSIUM 4.1 MMOL/L (3.6-5.0); SODIUM 140 MMOL/L (135-145); TOTAL PROTEIN 7.1 GM/DL (6.4-8.2)
[2018-01-05 15:17] LABS: BILIRUBIN,URINE NEGATIVE (NEGATIVE); CLARITY,URINE CLEAR; COLOR,URINE YELLOW; GLUCOSE, URINE (UA) NEGATIVE (NEGATIVE); KETONES,URINE NEGATIVE (NEGATIVE); LEUKOCYTE ESTERASE ,URINE 1+ (NEGATIVE); NITRITE,URINE NEGATIVE (NEGATIVE); PH,URINE 7 (5-9); PROTEIN,URINE NEGATIVE (NEGATIVE); UROBILINOGEN,URINE NORMAL (NORMAL)
[2018-01-05 15:27] LABS: BACTERIA,URINE NEGATIVE /HPF; SQUAMOUS EPITHELIAL CELL,UR 0-2 /HPF
--- NOTE | 2018-01-05 15:34 | Diagnostic Imaging Report ---
INDICATION: Right-sided weakness and dizziness. TECHNIQUE: Axial imaging through the brain was performed without contrast. COMPARISON: Correlation is made with prior head CT from 03/26/2017. FINDINGS: The area of encephalomalacia in the left occipital lobe appears stable and consistent with prior infarct. The ventricular size is stable. There is moderate periventricular hypodensity consistent with chronic microvascular ischemia. No sulcal effacement is seen. No midline shift is identified. No acute intra-axial or extra-axial hemorrhage is seen. Cisterns are patent. The visualized paranasal sinuses are clear. IMPRESSION: Stable chronic changes when compared to exam from 03/26/2017. No acute intracranial process is detected. Results were called to Dr. Hancock in the emergency department prior to this dictation. Dictated by: Dictated on workstation # [id number]
[2018-01-05] MEDS ORDERED: KETOROLAC 30 MG/ML VIAL IVP ONE (15:45)
[2018-01-05 16:00] VITALS: BP 158/85
[2018-01-05] MEDS ORDERED: ONDANSETRON 4 MG/2 ML (SDV) Z0FRAN IVP ONE (16:00)
[2018-01-05] MEDS ORDERED: IOHEXOL 350 MG/ML 100 ML (OMNIPAQUE 350) VIAL IV ONE (16:15)
[2018-01-05] MEDS ORDERED: NS 100 ML (IVPB) BAG IV ONE (16:15)
[2018-01-05 16:38] LABS: FREE T4 (FREE THYROXINE) 1.08 NG/DL (0.70-1.48)
[2018-01-05] MEDS ORDERED: NS IV 1000 ML 1,000 ML IV ONE (17:02)
[2018-01-05] MEDS ORDERED: NS IV 500 ML 500 ML IV ONE (17:03)
--- NOTE | 2018-01-05 17:11 | ED General ---
General Chief Complaint: Neuro-Stroke Like Symptoms Stated Complaint: DIZZY, WEAK, LEFT SIDE ARM Nursing Triage Note: pt reports when she woke up this am with JOYCE, dizziness, worsening vision. 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 Nursing Sepsis Screen: No Definite Risk Source of Information: Patient, Family, Old Records Exam Limitations: No Limitations History of Present Illness Date Seen by Provider: January 05, 2018 Time Seen by Provider: 14:13 Initial Comments This 67-year-old woman presents to the emergency room accompanied by her daughter with complaint of headache and blurry vision. She has chronic vision problems and is actually legally blind but she states these symptoms seem worse today. Daughter reports she has intermittent problems with exacerbation of visual deficits. Patient is sometimes not compliant with her medications and she does not believe she took her metoprolol this morning. That was disclosed later in the visit. Patient reports waking up this morning feeling dizzy described as lightheadedness. She also reported having numbness in her right arm. No measurable deficits were identified on initial examination. Patient has been ambulatory but daughter reports she may have a little more disequilibrium than usual. Patient was also recently started on insulin. Allergies and Home Medications Allergies Coded Allergies: enalapril (Verified Allergy, Unknown, RASH, 01/21/15) morphine (Verified Allergy, Unknown, RASH, 01/21/15) pneumococcal vaccine (Verified Allergy, Unknown, 01/21/15) Home Medications Albuterol Sulfate 2.5 Mg/3 Ml Vial.neb, 2.5 MG IH Q6H Prescribed by: MURRAY VILLEGAS on 08/24/17604 Albuterol Sulfate 2.5 Mg/3 Ml Vial.neb, 2.5 MG IH Q4H PRN for COUGH Prescribed by: MURRAY VILLEGAS on 08/24/17604 Aspirin 81 Mg Tabec, 81 MG PO DAILY, (Reported) Atorvastatin Calcium 80 Mg Tablet, 40 MG PO DAILY, (Reported) Benzonatate 100 Mg Capsule, 100 MG PO Q6H PRN for COUGH Prescribed by: MURRAY VILLEGAS on 08/24/17604 Clopidogrel Bisulfate 75 Mg Tablet, 75 MG PO DAILY, (Reported) Escitalopram Oxalate 20 Mg Tablet, 20 MG PO DAILY, (Reported) Hydrocodone Bit/Acetaminophen 1 Tab Tablet, 1 TAB PO QID PRN for PAIN, (Reported ) Metformin Hcl 500 Mg Tablet, 500 MG PO BID, (Reported) Metoprolol Succinate 50 Mg Tab.sr.24h, 50 MG PO DAILY, (Reported) Pantoprazole Sodium 40 Mg Tablet.dr, 40 MG PO DAILY, (Reported) Prednisone 20 Mg Tab, 20 MG PO BID Take 40 mg (2 tabs) twice a day x2 days Take 20 mg (1 tab) twice a day x3 days Take 20 mg (1 tab) daily x3 days Prescribed by: MURRAY VILLEGAS on 08/24/17 0605 Trazodone Hcl 50 Mg Tablet, 50 MG PO HS, (Reported) Patient Home Medication List Home Medication List Reviewed: Yes Review of Systems Constitutional: no symptoms reported EENTM: see HPI Respiratory: no symptoms reported Cardiovascular: see HPI Gastrointestinal: no symptoms reported Genitourinary: no symptoms reported Musculoskeletal: no symptoms reported Skin: no symptoms reported Psychiatric/Neurological: See HPI Hematologic/Lymphatic: No Symptoms Reported Immunological/Allergic: no symptoms reported Past Lmcqqqx-Rgaaow-Mupeag Hx Patient Social History Alcohol Use: Denies Use Recreational Drug Use: No Smoking Status: Former Smoker Former Smoker, Quit: January 15, 1975 2nd Hand Smoke Exposure: No Recent Foreign Travel: No Contact w/Someone Who Travel: No Recent Infectious Disease Expo: No Recent Hopitalizations: No Physical Abuse: No Sexual Abuse: No Mistreated: No Immunizations Up To Date Tetanus Booster (TDap): Unknown PED Vaccines UTD: No Date of Pneumonia Vaccine: Feb 15, 2007 Date of Influenza Vaccine: May 22, 2012 Seasonal Allergies Seasonal Allergies: No Past Medical History Surgeries: Yes (LINQ Reveal implantation) Defibrillator, Gallbladder, Hysterectomy Respiratory: Yes Asthma Currently Using CPAP: No Currently Using BIPAP: No Cardiac: Yes (cva X2, linx recording) Deep Vein Thrombosis, High Cholesterol, Hypertension Neurological: Yes (CVA with memory issues, poor vision, dizziness) Headaches /Migraines, Stroke Reproductive Disorders: Yes (HYSTERECTOMY) 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, Menopausal Sexually Transmitted Disease: No HIV/AIDS: No Genitourinary: No Kidney Infection, UTI-Chronic Gastrointestinal: Yes Gastroesophageal Reflux, Chronic Constipation, Irritable Bowel Musculoskeletal: No (BACK SURGERY) Arthritis Endocrine: Yes Hypothyroidsim, Diabetes, Non-Insulin dep HEENT: No Loss of Vision: Bilateral Hearing Impairment: Denies Cancer: No Psychosocial: Yes Anxiety, Depression Nursing Suicide Risk Score: 0 Integumentary: No Blood Disorders: No Adverse Reaction/Blood Tranf: No Family Medical History Family history: Cardiovascular disease 19 FATHER 19 MOTHER G8 BROTHER Family history: Diabetes mellitus 19 MOTHER G8 BROTHER G8 BROTHER G8 SISTER G8 SISTER G8 SISTER Heart Disease, Diabetes Physical Exam Vital Signs Vital Signs - First Documented 01/05/18 14:07 Temp 98.2 Pulse 65 Resp 20 B/P (MAP) 175/101 (125) Pulse Ox 99 Capillary Refill : Less Than 3 Seconds General Appearance: No Apparent Distress, WD/WN HEENT: PERRL/EOMI, TMs Normal, Normal ENT Inspection, Pharynx Normal Neck: Normal Inspection Respiratory: Lungs Clear, Normal Breath Sounds, No Accessory Muscle Use, No Respiratory Distress Cardiovascular: Regular Rate, Rhythm, No Edema, Systolic Murmur (subtle) Gastrointestinal: Normal Bowel Sounds, Soft, Tenderness (generalized, mild) Extremity: Normal Inspection, No Pedal Edema Neurologic/Psychiatric: Alert, No Motor/Sensory Deficits, Normal 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, 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 Norm as Tested, Other (disoriented to month) Skin: Normal Color, Warm/Dry Progress/Results/Core Measures Suspected Sepsis Recent Fever Within 48 Hours: No Infection Criteria Present: None New/Unexplained Altered Menta: Yes Sepsis Screen: No Definite Risk SIRS Temperature:98.2 Pulse: 65 Respiratory Rate: 20 Laboratory Tests 01/05/18 14:09: White Blood Count 7.0 Blood Pressure 175 /101 Mean: 125 Laboratory Tests 01/05/18 14:09: Creatinine 0.85, Platelet Count 240, Total Bilirubin 0.5 Results/Orders Lab Results Laboratory Tests Test 01/05/18 14:00 01/05/18 14:09 01/05/18 15:00 Range/Units Thyroid Stimulating Hormone (TSH) 2.39 0.35-4.94 UIU/ML Free Thyroxine 1.08 0.70-1.48 NG/DL White Blood Count 7.0 4.3-11.0 10^3/uL Red Blood Count 4.26 L 4.35-5.85 10^6/uL Hemoglobin 13.8 11.5-16.0 G/DL Hematocrit 40 35-52 % Mean Corpuscular Volume 95 80-99 FL Mean Corpuscular Hemoglobin 32 25-34 PG Mean Corpuscular Hemoglobin Concent 34 32-36 G/DL Red Cell Distribution Width 13.6 10.0-14.5 % Platelet Count 240 130-400 10^3/uL Mean Platelet Volume 9.9 7.4-10.4 FL Neutrophils (%) (Auto) 47 42-75 % Lymphocytes (%) (Auto) 43 12-44 % Monocytes (%) (Auto) 7 0-12 % Eosinophils (%) (Auto) 3 0-10 % Basophils (%) (Auto) 1 0-10 % Neutrophils # (Auto) 3.3 1.8-7.8 X 10^3 Lymphocytes # (Auto) 3.0 1.0-4.0 X 10^3 Monocytes # (Auto) 0.5 0.0-1.0 X 10^3 Eosinophils # (Auto) 0.2 0.0-0.3 10^3/uL Basophils # (Auto) 0.0 0.0-0.1 10^3/uL Sodium Level 140 135-145 MMOL/L Potassium Level 4.1 3.6-5.0 MMOL/L Chloride Level 105 98-107 MMOL/L Carbon Dioxide Level 27 21-32 MMOL/L Anion Gap 8 5-14 MMOL/L Blood Urea Nitrogen 6 L 7-18 MG/DL Creatinine 0.85 0.60-1.30 MG/DL Estimat Glomerular Filtration Rate > 60 BUN/Creatinine Ratio 7 Glucose Level 191 H 70-105 MG/DL Calcium Level 9.7 8.5-10.1 MG/DL Magnesium Level 1.7 L 1.8-2.4 MG/DL Total Bilirubin 0.5 0.1-1.0 MG/DL Aspartate Amino Transf (AST/SGOT) 47 H 5-34 U/L Alanine Aminotransferase (ALT/SGPT) 18 0-55 U/L Alkaline Phosphatase 63 40-136 U/L Total Protein 7.1 6.4-8.2 GM/DL Albumin 4.1 3.2-4.5 GM/DL Urine Color YELLOW Urine Clarity CLEAR Urine pH 7 5-9 Urine Specific [place] 1.010 L 1.016-1.022 Urine Protein NEGATIVE NEGATIVE Urine Glucose (UA) NEGATIVE NEGATIVE Urine Ketones NEGATIVE NEGATIVE Urine Nitrite NEGATIVE NEGATIVE Urine Bilirubin NEGATIVE NEGATIVE Urine Urobilinogen NORMAL NORMAL MG/DL Urine Leukocyte Esterase 1+ H NEGATIVE Urine RBC (Auto) NEGATIVE NEGATIVE Urine RBC NONE /HPF Urine WBC 2-5 /HPF Urine Squamous Epithelial Cells 0-2 /HPF Urine Crystals NONE /LPF Urine Bacteria NEGATIVE /HPF Urine Casts NONE /LPF Urine Mucus NEGATIVE /LPF Urine Culture Indicated NO My Orders Orders - FELIZ HANCOCK MD Ct Head Wo-R/O Stroke (01/05/18 14:24) Cbc With Automated Diff (01/05/18 14:24) Comprehensive Metabolic Panel (01/05/18 14:24) Magnesium (01/05/18 14:24) Ua Culture If Indicated (01/05/18 14:24) Saline Lock/Iv-Start (01/05/18 14:24) Monitor-Rhythm Ecg Trace Only (01/05/18 14:24) Ketorolac Injection (Toradol Injection) (01/05/18 15:45) Ct Angio Head/Neck (01/05/18 15:55) Ondansetron Injection (Zofran Injectio (01/05/18 16:00) Thyroid Stimulating Hormone (01/05/18 15:59) Free T4 (Free Thyroxine) (01/05/18 15:59) Iohexol Injection (Omnipaque 350 Mg/Ml 1 (01/05/18 16:15) Ns (Ivpb) (Sodium Chloride 0.9% Ivpb Bag (01/05/18 16:15) Ns Iv 1000 Ml (Sodium Chloride 0.9%) (01/05/18 17:02) Saline Lock/Iv-Start (01/05/18 17:03) Ns Iv 500 Ml (Sodium Chloride 0.9%) (01/05/18 17:03) 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 Because of the disequilibrium and right hand numbness, further evaluation of posterior circulation was sought with CT angiogram. Toradol was given for headache which was improving pain. Progress Note #2: Time: 17:13 Progress Note Patient was feeling much improved after Toradol. We stood the patient up and performed a standing blood pressure. Her systolic blood pressure dropped to 122. A bolus of 500 mL of normal saline was ordered to hydrate her. CT angiogram of the head and neck discussed with Dr. Shoemaker who reported no acute abnormalities and no stenotic or occlusive disease. Progress Note #3: Progress Note Patient was feeling better after IVF and was requesting to go home. Patient demonstrated ability to walk safely and independently prior to discharge. Patient was instructed to take her blood pressure medication as soon as she returned home. ECG Initial ECG Impression Date: January 05, 2018 Initial ECG Impression Time: 14:10 Initial ECG Rate: 66 Initial ECG Rhythm: Normal Sinus Initial ECG Intervals: Normal Initial ECG Impression: Normal Comment Normal sinus rhythm with no ST elevation or depression. No abnormal intervals or axis deviation. Diagnostic Imaging Diagonstic Imaging: CT Plain Films/CT/US/NM/MRI: head Comments CT head viewed by me and discussed with radiologist. Report reviewed. See report below: NAME: [facility] REC#: [id number] PT STATUS: REG ER : 1950 PHYSICIAN: FELIZ HANCOCK MD ADMIT DATE: 01/05/18/ER Signed Date of Exam: 01/05/18 CT HEAD WO-R/O STROKE INDICATION: Right-sided weakness and dizziness. TECHNIQUE: Axial imaging through the brain was performed without contrast. COMPARISON: Correlation is made with prior head CT from 03/26/2017. FINDINGS: The area of encephalomalacia in the left occipital lobe appears stable and consistent with prior infarct. The ventricular size is stable. There is moderate periventricular hypodensity consistent with chronic microvascular ischemia. No sulcal effacement is seen. No midline shift is identified. No acute intra-axial or extra-axial hemorrhage is seen. Cisterns are patent. The visualized paranasal sinuses are clear. IMPRESSION: Stable chronic changes when compared to exam from 03/26/2017. No acute intracranial process is detected. Results were called to Dr. Hancock in the emergency department prior to this dictation. Dictated by: Dictated on workstation # [id number] Dict: 01/05/18 1527 Trans: 01/05/18 1539 Interpreted by: ELLY SANDOVAL MD Electronically signed by: ELLY SANDOVAL MD 01/05/18 1539 Diagonstic Imaging: CT Comments CT head and neck angiogram viewed by me and report reviewed and discussed with radiologist. See report below: NAME: NINA [facility] REC#: [id number] PT STATUS: DEP ER : 1950 PHYSICIAN: FELIZ HANCOCK MD ADMIT DATE: 01/05/18/ER Signed Date of Exam: 01/05/18 CT ANGIO HEAD/NECK PROCEDURE: CT angiography of the head and CT angiography of the neck with and without contrast. TECHNIQUE: Contiguous noncontrast images were obtained from the skull base through the vertex. After intravenous contrast administration, helical CT angiography of the neck was performed. Source data was reformatted into multiple MIP projections. Delayed post contrast acquisition was also obtained. INDICATION: Right-sided weakness and dizziness. COMPARISON: CT head from the same day. FINDINGS: There is mild atherosclerosis at the origin of the right carotid bifurcation. No significant stenosis is seen in the right common carotid or internal carotid arteries. There is no significant stenosis in the left common or internal carotid arteries. The left vertebral artery is slightly dominant. No focal stenosis or dissection is seen in the vertebral arteries bilaterally. The anterior communicating artery is visible. The bilateral anterior cerebral arteries are tortuous, but appear patent. The right middle cerebral artery and the left middle cerebral artery appear normal. The posterior communicating arteries are not well seen bilaterally. The bilateral posterior cerebral arteries appear normal, although the left posterior cerebral artery is mildly diminutive. The dural sinuses demonstrate no filling defects. Redemonstrated is an old left occipital infarct. No enhancing masses or asymmetric perfusion is seen in the brain. The calvarium appears intact with mild hyperostosis frontalis. The paranasal sinuses are clear. There is mild atherosclerosis at the aortic arch. The imaged lung apices are clear. The soft tissues of the neck are otherwise unremarkable. There is anterior fusion of the cervical spine from C4 through C6 with degenerative changes at C3-C4 and C6-C7. There is a prominent osteophyte at C5-C6 and at C6-C7 resulting in moderate spinal canal stenosis. IMPRESSION: 1. No arterial stenosis, occlusion, or dissection seen in the head or neck. 2. No acute intracranial hemorrhage or CT evidence of acute territorial ischemia. Stable old left occipital infarct. Findings discussed with FELIZ HANCOCK MD by Dr. Shoemaker, on 01/05/2018 5:10 p.m. Dictated by: Dictated on workstation # [id number] Dict: 01/05/18 1659 Trans: 01/07/18 0810 Interpreted by: HUEY SHOEMAKER MD Electronically signed by: HUEY SHOEMAKER MD 01/07/18 0810 Departure Impression Primary Impression: Acute headache Qualified Codes: R51 - Headache Additional Impressions: Paresthesia of right upper extremity Hypertensive urgency Noncompliance with medications Lightheadedness Disposition: 01 HOME, SELF-CARE Condition: Improved Departure-Patient Inst. Decision time for Depature: 17:40 Referrals: IRASEMA SMITH MD (PCP/Family) Primary Care Physician Patient Instructions: High Blood Pressure (DC), Paresthesias (DC) Add. Discharge Instructions: Follow-up with your primary care provider within the next 48 hours for a repeat blood pressure check. Take your evening dose of your blood pressure medication as soon as you return home. Drink plenty of clear liquids. Return to the emergency room if symptoms worsen. For headache you may take ibuprofen up to 400 mg every 6 hours as needed and/or Tylenol (acetaminophen) up to 1000 mg every 6 hours. All discharge instructions reviewed with patient and/or family. Voiced understanding. Copy Copies To 1: IRASEMA SMITH MD, JOSHUA T MD January 05, 2018 17:11
--- NOTE | 2018-01-05 17:27 | Diagnostic Imaging Report ---
PROCEDURE: CT angiography of the head and CT angiography of the neck with and without contrast. TECHNIQUE: Contiguous noncontrast images were obtained from the skull base through the vertex. After intravenous contrast administration, helical CT angiography of the neck was performed. Source data was reformatted into multiple MIP projections. Delayed post contrast acquisition was also obtained. INDICATION: Right-sided weakness and dizziness. COMPARISON: CT head from the same day. FINDINGS: There is mild atherosclerosis at the origin of the right carotid bifurcation. No significant stenosis is seen in the right common carotid or internal carotid arteries. There is no significant stenosis in the left common or internal carotid arteries. The left vertebral artery is slightly dominant. No focal stenosis or dissection is seen in the vertebral arteries bilaterally. The anterior communicating artery is visible. The bilateral anterior cerebral arteries are tortuous, but appear patent. The right middle cerebral artery and the left middle cerebral artery appear normal. The posterior communicating arteries are not well seen bilaterally. The bilateral posterior cerebral arteries appear normal, although the left posterior cerebral artery is mildly diminutive. The dural sinuses demonstrate no filling defects. Redemonstrated is an old left occipital infarct. No enhancing masses or asymmetric perfusion is seen in the brain. The calvarium appears intact with mild hyperostosis frontalis. The paranasal sinuses are clear. There is mild atherosclerosis at the aortic arch. The imaged lung apices are clear. The soft tissues of the neck are otherwise unremarkable. There is anterior fusion of the cervical spine from C4 through C6 with degenerative changes at C3-C4 and C6-C7. There is a prominent osteophyte at C5-C6 and at C6-C7 resulting in moderate spinal canal stenosis. IMPRESSION: 1. No arterial stenosis, occlusion, or dissection seen in the head or neck. 2. No acute intracranial hemorrhage or CT evidence of acute territorial ischemia. Stable old left occipital infarct. Findings discussed with FELIZ FELIX MD by Dr. Kiser, on 01/05/2018 5:10 p.m. Dictated by: Dictated on workstation # [id number]
[2018-01-05 17:45] VITALS: BP 146/85
--- OUTSIDE RECORDS SUMMARY | 2018-01-05 19:06 | XMS REPORT | Clinical Summary ---
Author Author [facility] Organization [facility] Address Unknown Phone Unavailable Care Team Providers Care [employer] Supervisor Name Role Phone Self, Referral PCP Unavailable Augusta Corral DO Unavailable Unavailable Robbin King MD Unavailable Unavailable Source Comments Some departments are not documenting in the electronic medical record. If you do not see the information that you expected, contact Release of Information in the Health Information Management department at [phone] for further assistance in locating additional records.[facility] Allergies No Known Allergies Current [...] SCREENING 2013 PREVNAR/PNEUMOVAX (#1) 2013 INFLUENZA VACCINE 06/06/2018 Results Not on filefrom Last 3 Months
--- OUTSIDE RECORDS SUMMARY | 2018-01-05 19:11 | XMS REPORT | Continuity of Care Document ---
Author Author [facility] Organization [facility] Address Unknown Phone Unavailable Allergies Active Description Code Type Severity Reaction Onset Reported/Identified Relationship to Patient Clinical Status Yes enalapril [id number] Drug Allergy Unknown RASH 01/21/2015 Yes morphine [id number] Drug Allergy Unknown RASH 01/21/2015 Yes pneumococcal vaccine [id number] Drug Allergy Unknown N/A 01/21/2015 Medications There [...] R Ot 790.29 OTHER ABNORMAL GLUCOSE 02/20/2014 SELWYN GABRIEL, DUSTIN E Ot 272.0 PURE HYPERCHOLESTEROLEM [...] Pastor Ot 785.1 10/08/2014 DICK GABRIEL, TRAVIS Pasotr Ot 996.09 10/08/2014 TRAVIS JENNINGS MD Ot [...] MALONEY K Ot 278.00 02/05/2015 BRITNEY MICHELLE, RUBAN K Ot 401.9 02/05/2015 URBAN MALONEY K Ot 434.91 02/05/2015 SARAH GABRIEL, IRASEMA R Ot 790.29 02/05/2015 DICK GABRIEL, TRAVIS Pastor Ot 272.4 02/05/2015 DICK GABRIEL, TRAVIS J Ot 278.00 02/05/2015 DICK GABIREL, TRAVIS J Ot 401.9 02/05/2015 DICK GABRIEL, [...] R Ot E888.9 FALL NOS 02/15/2015 SARAH GABRIEL, IRASEMA R Ot 611.71 02/27/2015 IRASEMA SMITH [...] R25.2 CRAMP AND SPASM 01/20/2016 RHONA SMITH CODING TECHNICIAN Ot E11.9 TYPE 2 DIABETES MELLITUS WITHOUT COMPLIC 01/20/2016 RHONA SMITH CODING TECHNICIAN Ot E78.5 HYPERLIPIDEMIA, UNSPECIFIED 01/20/2016 RHONA SMITH CODING TECHNICIAN Ot I10 ESSENTIAL (PRIMARY) HYPERTENSION 01/20/2016 RHONA SMITH CODING TECHNICIAN Ot I25.10 ATHSCL HEART DISEASE OF [place] CORONARY 01/20/2016 RHONA SMITH CODING TECHNICIAN Ot K21.9 GASTRO-ESOPHAGEAL REFLUX DISEASE WITHOUT 01/20/2016 RHONA SMITH CODING TECHNICIAN Ot R11.0 NAUSEA 02/12/2016 RHONA SMITH CODING TECHNICIAN Ot E11.9 TYPE 2 DIABETES MELLITUS WITHOUT COMPLIC 02/12/2016 RHONA SMITH CODING TECHNICIAN Ot E78.5 HYPERLIPIDEMIA, UNSPECIFIED 02/12/2016 RHONA SMITH CODING TECHNICIAN Ot I10 ESSENTIAL (PRIMARY) HYPERTENSION 02/12/2016 RHONA SMITH CODING TECHNICIAN Ot I25.10 ATHSCL HEART DISEASE OF [place] CORONARY 02/12/2016 RHONA SMITH CODING TECHNICIAN Ot K21.9 GASTRO-ESOPHAGEAL REFLUX DISEASE WITHOUT 02/12/2016 RHONA SMITH CODING TECHNICIAN Ot R11.0 NAUSEA 02/13/2016 SARAH GABRIEL, IRASEMA R Ot R51 HEADACHE 02/13/2016 SARAH GABRIEL, IRASEMA R Ot R51 HEADACHE 02/18/2016 RHONA SMITH CODING TECHNICIAN Ot E11.9 TYPE 2 DIABETES MELLITUS WITHOUT COMPLIC 02/18/2016 RHONA SMITH CODING TECHNICIAN Ot E78.5 HYPERLIPIDEMIA, UNSPECIFIED 02/18/2016 RHONA SMITH CODING TECHNICIAN Ot I10 ESSENTIAL (PRIMARY) HYPERTENSION 02/18/2016 RHONA SMITH Candice CODING TECHNICIAN Ot I25.10 ATHSCL HEART DISEASE OF [place] CORONARY 02/18/2016 RHONA SMITH CODING TECHNICIAN Ot K21.9 GASTRO-ESOPHAGEAL REFLUX DISEASE WITHOUT 02/18/2016 RHONA SMITH CODING TECHNICIAN Ot R11.0 NAUSEA 03/03/2016 SARAH GABRIEL, IRASEMA [...] JENNINGS MD Ot 414.01 CORONARY ATHEROSCLEROSIS OF [place] CORON 05/27/2016 TRAVIS JENNINGS MD Ot 272.4 HYPERLIPIDEMIA NEC/NOS 05/27/2016 TRAVIS JENNINGS MD Ot 401.9 HYPERTENSION NOS 05/27/2016 TRAVIS JENNINGS MD Ot 434.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 NOS W CEREBRAL IN 05/27/2016 TRAVIS JENNINGS MD Ot 786.50 CHEST PAIN NOS 05/27/2016 IRASEMA SMITH MD R Ot 723.1 CERVICALGIA 05/27/2016 SARAH GABRIEL, IRASEMA R Ot 784.2 SWELLING IN HEAD NECK 05/27/2016 RHONA SMITH CODING TECHNICIAN Ot E11.9 TYPE 2 DIABETES MELLITUS WITHOUT COMPLIC 05/27/2016 RHONA SMITH CODING TECHNICIAN Ot E78.5 HYPERLIPIDEMIA, UNSPECIFIED 05/27/2016 RHONA SMITH Candice CODING TECHNICIAN Ot I10 ESSENTIAL (PRIMARY) HYPERTENSION 05/27/2016 RHONA SMITH Candice CODING TECHNICIAN Ot I25.10 ATHSCL HEART DISEASE OF [place] CORONARY 05/27/2016 RHONA SMITH Candice CODING TECHNICIAN Ot K21.9 GASTRO-ESOPHAGEAL REFLUX DISEASE WITHOUT 05/27/2016 RHONA SMITH CODING TECHNICIAN Ot R11.0 NAUSEA 05/27/2016 SARAH GABRIEL, IRASEMA [...] R63.4 ABNORMAL WEIGHT LOSS 05/31/2016 RUSSELL SMITH CODING TECHNICIAN Ot E03.9 HYPOTHYROIDISM, UNSPECIFIED 05/31/2016 LUIS RUSSELL CODING TECHNICIAN Ot E11.9 TYPE 2 DIABETES MELLITUS WITHOUT COMPLIC 05/31/2016 LUIS RUSSELL CODING TECHNICIAN Ot I10 ESSENTIAL (PRIMARY) HYPERTENSION 05/31/2016 LUIS RUSSELL CODING TECHNICIAN Ot M54.5 LOW BACK PAIN 05/31/2016 LUIS RUSSELL CODING TECHNICIAN Ot R10.30 LOWER ABDOMINAL PAIN, UNSPECIFIED 05/31/2016 LUIS RUSSELL CODING TECHNICIAN Ot R11.2 NAUSEA WITH VOMITING, UNSPECIFIED 05/31/2016 LUIS RUSSELL CODING TECHNICIAN Ot R19.7 DIARRHEA, UNSPECIFIED 05/31/2016 LUIS RUSSELL CODING TECHNICIAN Ot Z79.82 HALF-WAY (CURRENT) USE OF ASPIRIN 05/31/2016 RUSSELL SMITH CODING TECHNICIAN Ot Z79.899 OTHER HALF-WAY (CURRENT) DRUG THERAPY 05/31/2016 RUSSELL SMITH CODING TECHNICIAN Ot Z86.718 PERSONAL HISTORY OF OTHER VENOUS THROMBO 05/31/2016 RUSSELL SMITH CODING TECHNICIAN Ot Z95.810 PRESENCE OF AUTOMATIC (IMPLANTABLE) CARD 06/01/2016 IRASEMA SMITH MD R Ot R63.4 ABNORMAL WEIGHT LOSS 06/02/2016 RUSSELL SMITH CODING TECHNICIAN Ot E03.9 HYPOTHYROIDISM, UNSPECIFIED 06/02/2016 LUIS, RUSSELL CODING TECHNICIAN Ot E11.9 TYPE 2 DIABETES MELLITUS WITHOUT COMPLIC 06/02/2016 LUIS RUSSELL CODING TECHNICIAN Ot I10 ESSENTIAL (PRIMARY) HYPERTENSION 06/02/2016 LUIS RUSSELL CODING TECHNICIAN Ot M54.5 LOW BACK PAIN 06/02/2016 LUSI RUSSELL CODING TECHNICIAN Ot R10.30 LOWER ABDOMINAL PAIN, UNSPECIFIED 06/02/2016 LUIS RUSSELL CODING TECHNICIAN Ot R11.2 NAUSEA WITH VOMITING, UNSPECIFIED 06/02/2016 LUIS RUSSELL CODING TECHNICIAN Ot R19.7 DIARRHEA, UNSPECIFIED 06/02/2016 LUIS RUSSELL CODING TECHNICIAN Ot Z79.82 STAGE BUILDER (CURRENT) USE OF ASPIRIN 06/02/2016 LUIS RUSSELL CODING TECHNICIAN Ot Z79.899 OTHER STAGE BUILDER (CURRENT) DRUG THERAPY 06/02/2016 RUSSELL SMITH CODING TECHNICIAN Ot Z86.718 PERSONAL HISTORY OF OTHER VENOUS THROMBO 06/02/2016 RUSSELL SMITH CODING TECHNICIAN Ot Z95.810 PRESENCE OF AUTOMATIC (IMPLANTABLE) CARD [...] IRASEMA R Ot R11.0 NAUSEA 06/30/2016 SARAH GARBIEL, IRASEMA R Ot R63.4 ABNORMAL WEIGHT LOSS [...] YOEL SENA DO, Ot Y92.002 BATHRM OF [facility] SN 12/29/2016 YOEL SENA DO, Ot Y93.E1 ACTIVITY, PERSONAL BATHING AND SHOWERING 12/29/2016 YOEL SENA DO, Ot Y99.8 OTHER EXTERNAL CAUSE STATUS 12/29/2016 YOEL SENA DO, Ot Z79.02 STAGE BUILDER (CURRENT) USE OF ANTITHROMBOTI 12/29/2016 YOEL SENA DO, Ot Z79.82 HALF-WAY (CURRENT) USE OF ASPIRIN 12/29/2016 YOEL SENA DO, Ot Z79.84 HALF-WAY (CURRENT) USE OF ORAL HYPOGLYC 12/29/2016 YOEL [...] YOEL SENA DO, Ot Y92.002 BATHRM OF [facility] 01/04/2017 YOEL SENA DO, Ot Y93.E1 ACTIVITY, PERSONAL BATHING AND SHOWERING 01/04/2017 YOEL SENA DO, Ot Y99.8 OTHER EXTERNAL CAUSE STATUS 01/04/2017 YOEL SENA DO, Ot Z79.02 STAGE BUILDER (CURRENT) USE OF ANTITHROMBOTI 01/04/2017 YOEL SENA DO, Ot Z79.82 STAGE BUILDER (CURRENT) USE OF ASPIRIN 01/04/2017 YOEL SENA DO, Ot Z79.84 HALF-WAY (CURRENT) USE OF ORAL HYPOGLYC 01/04/2017 YOEL [...] COLLAPSE 01/18/2017 ROSANA ROSADO APRN Ot Z79.02 STAGE BUILDER (CURRENT) USE OF ANTITHROMBOTI 01/18/2017 ROSANA ROSADO APRN Ot Z79.84 STAGE BUILDER (CURRENT) USE OF ORAL HYPOGLYC 01/18/2017 ROSANA ROSADO APRN Ot Z79.899 OTHER STAGE BUILDER (CURRENT) DRUG THERAPY 01/18/2017 ROSANA ROSADO APRN Ot Z95.810 PRESENCE OF AUTOMATIC (IMPLANTABLE) CARD 01/19/2017 ROSANA ROSADO APRN Ot E11.9 TYPE 2 DIABETES MELLITUS WITHOUT COMPLIC 01/19/2017 ROSANA ROSADO APRN Ot I10 ESSENTIAL (PRIMARY) HYPERTENSION 01/19/2017 ROSANA ROSADO APRN Ot R11.2 NAUSEA WITH VOMITING, UNSPECIFIED 01/19/2017 ROSANA ROSADO APRN Ot R55 SYNCOPE AND COLLAPSE 01/19/2017 ROSANA ROSADO APRN Ot Z79.02 STAGE BUILDER (CURRENT) USE OF ANTITHROMBOTI 01/19/2017 ROSANA ROSADO APRN Ot Z79.84 HALF-WAY (CURRENT) USE OF ORAL HYPOGLYC 01/19/2017 ROSANA ROSADO APRN Ot Z79.899 OTHER HALF-WAY (CURRENT) DRUG THERAPY 01/19/2017 ROSANA ROSADO APRN Ot Z95.810 PRESENCE OF AUTOMATIC (IMPLANTABLE) CARD 01/20/2017 ROSANA ROSADO APRN Ot E11.9 TYPE 2 DIABETES MELLITUS WITHOUT COMPLIC 01/20/2017 ROSANA ROSADO APRN Ot I10 ESSENTIAL (PRIMARY) HYPERTENSION 01/20/2017 ROSANA ROSADO APRN Ot R11.2 NAUSEA WITH VOMITING, UNSPECIFIED 01/20/2017 ROSANA ROSADO APRN Ot R55 SYNCOPE AND COLLAPSE 01/20/2017 ROSANA ROSADO APRN Ot Z79.02 HALF-WAY (CURRENT) USE OF ANTITHROMBOTI 01/20/2017 ROSANA ROSADO APRN Ot Z79.84 STAGE BUILDER (CURRENT) USE OF ORAL HYPOGLYC 01/20/2017 ROSANA ROSADO APRN Ot Z79.899 OTHER STAGE BUILDER (CURRENT) DRUG THERAPY 01/20/2017 ROSANA ROSADO APRN [...] HEADACHE 03/27/2017 MARLO KHOURY DO Ot Z79.02 STAGE BUILDER (CURRENT) USE OF ANTITHROMBOTI 03/27/2017 MARLO KHOURY DO Ot Z79.82 HALF-WAY (CURRENT) USE OF ASPIRIN 03/27/2017 MARLO KHOURY DO Ot Z79.84 STAGE BUILDER (CURRENT) USE OF ORAL HYPOGLYC 03/27/2017 MARLO KHOURY DO Ot Z79.891 HALF-WAY (CURRENT) USE OF OPIATE ANALGE 03/27/2017 MARLO KHOURY DO Ot Z79.899 OTHER HALF-WAY (CURRENT) DRUG THERAPY 03/27/2017 MARLO KHOURY DO [...] HEADACHE 03/27/2017 MARLO KHOURY DO Ot Z79.02 HALF-WAY (CURRENT) USE OF ANTITHROMBOTI 03/27/2017 SARAH KHOURY DOI Ot Z79.82 HALF-WAY (CURRENT) USE OF ASPIRIN 03/27/2017 SARAH KHOURY DOI Ot Z79.84 HALF-WAY (CURRENT) USE OF ORAL HYPOGLYC 03/27/2017 MARLO KHOURY DO Ot Z79.891 STAGE BUILDER (CURRENT) USE OF OPIATE ANALGE 03/27/2017 MARLO KHOURY DO Ot Z79.899 OTHER STAGE BUILDER (CURRENT) DRUG THERAPY 03/27/2017 MARLO KHOURY DO [...] HEADACHE 04/01/2017 MARLO KHOURY DO Ot Z79.02 STAGE BUILDER (CURRENT) USE OF ANTITHROMBOTI 04/01/2017 MARLO KHOURY DO Ot Z79.82 STAGE BUILDER (CURRENT) USE OF ASPIRIN 04/01/2017 MARLO KHOURY DO Ot Z79.84 STAGE BUILDER (CURRENT) USE OF ORAL HYPOGLYC 04/01/2017 MARLO KHOURY DO Ot Z79.891 HALF-WAY (CURRENT) USE OF OPIATE ANALGE 04/01/2017 MARLO KHOURY DO Ot Z79.899 OTHER HALF-WAY (CURRENT) DRUG THERAPY 04/01/2017 MARLO KHOURY DO Ot Z86.73 PRSNL HX OF TIA (TIA), AND CEREB INFRC W 04/01/2017 MARLO KHOURY DO Ot Z95.810 PRESENCE OF AUTOMATIC (IMPLANTABLE) CARD 04/06/2017 Ot 784.0 HEADACHE 06/06/2017 Ot 784.0 HEADACHE 08/24/2017 MURRAY VILLEGAS MD Ot E03.9 HYPOTHYROIDISM, UNSPECIFIED 08/24/2017 MURRAY VILLEGAS MD Ot E11.9 TYPE 2 DIABETES MELLITUS WITHOUT COMPLIC 08/24/2017 MURRAY VILLEGAS MD Ot E78.00 PURE HYPERCHOLESTEROLEMIA, UNSPECIFIED 08/24/2017 MURRAY VILLEGAS MD Ot F32.9 MAJOR DEPRESSIVE DISORDER, SINGLE EPISOD 08/24/2017 MURRAY VILLEGAS MD Ot F41.9 ANXIETY DISORDER, UNSPECIFIED 08/24/2017 MURRAY VILLEGAS MD Ot I10 ESSENTIAL (PRIMARY) HYPERTENSION 08/24/2017 MURRAY VILLEGAS MD Ot J45.901 UNSPECIFIED ASTHMA WITH (ACUTE) EXACERBA 08/24/2017 MURRAY VILLEGAS MD Ot K21.9 GASTRO-ESOPHAGEAL REFLUX DISEASE WITHOUT 08/24/2017 MURRAY VILLEGAS MD Ot M19.90 UNSPECIFIED OSTEOARTHRITIS, UNSPECIFIED 08/24/2017 MURRAY VILLEGAS MD Ot R06.02 SHORTNESS OF BREATH 08/24/2017 MURRAY VILLEGAS MD Ot Z79.82 HALF-WAY (CURRENT) USE OF ASPIRIN 08/24/2017 MURRAY VILLEGAS MD Ot Z79.84 STAGE BUILDER (CURRENT) USE OF ORAL HYPOGLYC 08/24/2017 MURRAY VILLEGAS MD Ot Z82.49 FAMILY HX OF ISCHEM HEART DIS AND OTH DI 08/24/2017 MURRAY VILLEGAS MD Ot Z86.718 PERSONAL HISTORY OF OTHER VENOUS THROMBO 08/24/2017 MURRAY VILLEGAS MD Ot Z86.73 PRSNL HX OF TIA (TIA), AND CEREB INFRC W 08/24/2017 MURRAY VILLEGAS MD Ot Z87.19 PERSONAL HISTORY OF OTHER DISEASES OF TH 08/24/2017 MURRAY VILLEGAS MD Ot Z87.440 PERSONAL HISTORY OF URINARY (TRACT) INFE 08/24/2017 MURRAY VILLEGAS MD Ot Z90.710 ACQUIRED ABSENCE OF BOTH CERVIX AND UTER 08/26/2017 MURRAY VILLEGAS MD Ot E03.9 HYPOTHYROIDISM, UNSPECIFIED 08/26/2017 MURRAY VILLEGAS MD Ot E11.9 TYPE 2 DIABETES MELLITUS WITHOUT COMPLIC 08/26/2017 MURRAY VILLEGAS MD Ot E78.00 PURE HYPERCHOLESTEROLEMIA, UNSPECIFIED 08/26/2017 MURRAY VILLEGAS MD Ot F32.9 MAJOR DEPRESSIVE DISORDER, SINGLE EPISOD 08/26/2017 MURRAY VILLEGAS MD Ot F41.9 ANXIETY DISORDER, UNSPECIFIED 08/26/2017 MURRYA VILLEGAS MD Ot I10 ESSENTIAL (PRIMARY) HYPERTENSION 08/26/2017 MURRAY VILLEGAS MD Ot J45.901 UNSPECIFIED ASTHMA WITH (ACUTE) EXACERBA 08/26/2017 MURRAY VILLEGAS MD Ot K21.9 GASTRO-ESOPHAGEAL REFLUX DISEASE WITHOUT 08/26/2017 MURRAY VILLEGAS MD Ot M19.90 UNSPECIFIED OSTEOARTHRITIS, UNSPECIFIED 08/26/2017 MURRAY VILLEGAS MD Ot R06.02 SHORTNESS OF BREATH 08/26/2017 MURRAY VILLEGAS MD Ot Z79.82 STAGE BUILDER (CURRENT) USE OF ASPIRIN 08/26/2017 MURRAY VILLEGAS MD Ot Z79.84 HALF-WAY (CURRENT) USE OF ORAL HYPOGLYC 08/26/2017 MURRAY VILLEGAS MD Ot Z82.49 FAMILY HX OF ISCHEM HEART DIS AND OTH DI 08/26/2017 MURRAY VILLEGAS MD Ot Z86.718 PERSONAL HISTORY OF OTHER VENOUS THROMBO 08/26/2017 MURRAY VILLEGAS MD Ot Z86.73 PRSNL HX OF TIA (TIA), AND CEREB INFRC W 08/26/2017 MURRAY VILLEGAS MD Ot Z87.19 PERSONAL HISTORY OF OTHER DISEASES OF TH 08/26/2017 MURRAY VILLEGAS MD Ot Z87.440 PERSONAL HISTORY OF URINARY (TRACT) INFE 08/26/2017 NELLY GABRIEL MURRAY Pastor Ot Z90.710 ACQUIRED ABSENCE OF BOTH CERVIX AND UTER 12/16/2017 IRASEMA SMITH MD R Ot Z12.31 ENCNTR SCREEN MAMMOGRAM FOR MALIGNANT NE 12/28/2017 IRASEMA SMITH MD R Ot Z12.31 ENCNTR SCREEN MAMMOGRAM FOR MALIGNANT NE 12/29/2017 IRASEMA SMITH MD R Ot E05.90 THYROTOXICOSIS, UNSP WITHOUT THYROTOXIC 12/29/2017 IRASEMA SMITH MD R Ot R63.4 ABNORMAL WEIGHT LOSS 12/31/2017 IRASEMA SMITH MD R Ot K59.00 CONSTIPATION, UNSPECIFIED 12/31/2017 IRASEMA SMITH MD R Ot R11.11 VOMITING WITHOUT NAUSEA 12/31/2017 IRASEMA SMITH MD R Ot R63.4 ABNORMAL WEIGHT LOSS Procedures There is no data. Results Test [...] culture - 05/26/16 12:24 Bacterial urine culture [id number] NRG COLONY COUNT <10,000 NRG URINE CULTURE [...] or blood by coagulation assay 0.9 0.8-1.4 Complete blood count (CBC) with automated white blood cell (WBC) differential - 08/24/17 05:00 Blood leukocytes automated count (number/volume) 6.3 10*3/uL 4.3-11.0 Blood erythrocytes automated count (number/volume) 4.06 10*6/uL 4.35-5.85 Venous blood hemoglobin measurement (mass/volume) 12.5 g/dL 11.5-16.0 Blood hematocrit (volume fraction) 36 % 35-52 Automated erythrocyte mean corpuscular volume 89 [foz_us] 80-99 Automated erythrocyte mean corpuscular hemoglobin (mass per erythrocyte) 31 pg 25-34 Automated erythrocyte mean corpuscular hemoglobin concentration measurement ( mass/volume) 35 g/dL 32-36 Automated erythrocyte distribution width ratio 12.7 % 10.0-14.5 Automated blood platelet count (count/volume) 225 10*3/uL 130-400 Automated blood platelet mean volume measurement 9.8 [foz_us] 7.4-10.4 Automated blood neutrophils/100 leukocytes 61 % 42-75 Automated blood lymphocytes/100 leukocytes 26 % 12-44 Blood monocytes/100 leukocytes 9 % 0-12 Automated blood eosinophils/100 leukocytes 3 % 0-10 Automated blood basophils/100 leukocytes 1 % 0-10 Blood neutrophils automated count (number/volume) 3.8 10*3 1.8-7.8 Blood lymphocytes automated count (number/volume) 1.6 10*3 1.0-4.0 Blood monocytes automated count (number/volume) 0.6 10*3 0.0-1.0 Automated eosinophil count 0.2 10*3/uL 0.0-0.3 Automated blood basophil count (count/volume) 0.0 10*3/uL 0.0-0.1 Influenza virus A and B antigen detection - 08/24/17 05:00 FLU RESULT NEGATIVE FOR INFLUENZA A AND B ANTIGENS BY [facility] Comprehensive metabolic panel - 08/24/17 05:00 Serum or plasma sodium measurement (moles/volume) 136 mmol/L 135-145 Serum or plasma potassium measurement (moles/volume) 3.9 mmol/L 3.6-5.0 Serum or plasma chloride measurement (moles/volume) 100 mmol/L 98-107 Carbon dioxide 24 mmol/L 21-32 Serum or plasma anion gap determination (moles/volume) 12 mmol/L 5-14 Serum or plasma urea nitrogen measurement (mass/volume) 5 mg/dL 7-18 Serum or plasma creatinine measurement (mass/volume) 0.97 mg/dL 0.60-1.30 Serum or plasma urea nitrogen/creatinine mass ratio 5 NRG Serum or plasma creatinine measurement with calculation of estimated glomerular filtration rate 57 NRG Serum or plasma glucose measurement (mass/volume) 377 mg/dL 70-105 Serum or plasma calcium measurement (mass/volume) 9.1 mg/dL 8.5-10.1 Serum or plasma total bilirubin measurement (mass/volume) 0.2 mg/dL 0.1-1.0 Serum or plasma alkaline phosphatase measurement (enzymatic activity/volume) 63 U/L 40-136 Serum or plasma aspartate aminotransferase measurement (enzymatic activity/ volume) 33 U/L 5-34 Serum or plasma alanine aminotransferase measurement (enzymatic activity/volume ) 23 U/L 0-55 Serum or plasma protein measurement (mass/volume) 6.4 g/dL 6.4-8.2 Serum or plasma albumin measurement (mass/volume) 3.9 g/dL 3.2-4.5 Magnesium - 08/24/17 05:00 Magnesium 1.4 mg/dL 1.8-2.4 Complete blood count (CBC) with automated white blood cell (WBC) differential - 12/28/17 12:41 Blood leukocytes automated count (number/volume) 5.4 10*3/uL 4.3-11.0 Blood erythrocytes automated count (number/volume) 3.77 10*6/uL 4.35-5.85 Venous blood hemoglobin measurement (mass/volume) 12.3 g/dL 11.5-16.0 Blood hematocrit (volume fraction) 36 % 35-52 Automated erythrocyte mean corpuscular volume 96 [foz_us] 80-99 Automated erythrocyte mean corpuscular hemoglobin (mass per erythrocyte) 33 pg 25-34 Automated erythrocyte mean corpuscular hemoglobin concentration measurement ( mass/volume) 34 g/dL 32-36 Automated erythrocyte distribution width ratio 13.8 % 10.0-14.5 Automated blood platelet count (count/volume) 192 10*3/uL 130-400 Automated blood platelet mean volume measurement 9.5 [foz_us] 7.4-10.4 Automated blood neutrophils/100 leukocytes 53 % 42-75 Automated blood lymphocytes/100 leukocytes 36 % 12-44 Blood monocytes/100 leukocytes 7 % 0-12 Automated blood eosinophils/100 leukocytes 3 % 0-10 Automated blood basophils/100 leukocytes 1 % 0-10 Blood neutrophils automated count (number/volume) 2.9 10*3 1.8-7.8 Blood lymphocytes automated count (number/volume) 2.0 10*3 1.0-4.0 Blood monocytes automated count (number/volume) 0.4 10*3 0.0-1.0 Automated eosinophil count 0.2 10*3/uL 0.0-0.3 Automated blood basophil count (count/volume) 0.0 10*3/uL 0.0-0.1 Comprehensive metabolic panel - 12/28/17 12:41 Serum or plasma sodium measurement (moles/volume) 135 mmol/L 135-145 Serum or plasma potassium measurement (moles/volume) 4.0 mmol/L 3.6-5.0 Serum or plasma chloride measurement (moles/volume) 100 mmol/L 98-107 Carbon dioxide 28 mmol/L 21-32 Serum or plasma anion gap determination (moles/volume) 7 mmol/L 5-14 Serum or plasma urea nitrogen measurement (mass/volume) 7 mg/dL 7-18 Serum or plasma creatinine measurement (mass/volume) 0.92 mg/dL 0.60-1.30 Serum or plasma urea nitrogen/creatinine mass ratio 8 NRG Serum or plasma creatinine measurement with calculation of estimated glomerular filtration rate > NRG Serum or plasma glucose measurement (mass/volume) 338 mg/dL 70-105 Serum or plasma calcium measurement (mass/volume) 9.2 mg/dL 8.5-10.1 Serum or plasma total bilirubin measurement (mass/volume) 0.4 mg/dL 0.1-1.0 Serum or plasma alkaline phosphatase measurement (enzymatic activity/volume) 57 U/L 40-136 Serum or plasma aspartate aminotransferase measurement (enzymatic activity/ volume) 22 U/L 5-34 Serum or plasma alanine aminotransferase measurement (enzymatic activity/volume ) 11 U/L 0-55 Serum or plasma protein measurement (mass/volume) 6.3 g/dL 6.4-8.2 Serum or plasma albumin measurement (mass/volume) 4.0 g/dL 3.2-4.5 THYROID STIMULATING HORMONE - 12/28/17 12:41 THYROID STIMULATING HORMONE 3.35 u[iU]/mL 0.35-4.94 THYROID STIMULATING HORMONE - 01/05/18 14:00 THYROID STIMULATING HORMONE 2.39 u[iU]/mL 0.35-4.94 Serum or plasma thyroxine (T4) free measurement (mass/volume) - 01/05/18 14:00 Serum or plasma thyroxine (T4) free measurement (mass/volume) 1.08 ng/dL 0.70-1.48 Complete blood count (CBC) with automated white blood cell (WBC) differential - 01/05/18 14:09 Blood leukocytes automated count (number/volume) 7.0 10*3/uL 4.3-11.0 Blood erythrocytes automated count (number/volume) 4.26 10*6/uL 4.35-5.85 Venous blood hemoglobin measurement (mass/volume) 13.8 g/dL 11.5-16.0 Blood hematocrit (volume fraction) 40 % 35-52 Automated erythrocyte mean corpuscular volume 95 [foz_us] 80-99 Automated erythrocyte mean corpuscular hemoglobin (mass per erythrocyte) 32 pg 25-34 Automated erythrocyte mean corpuscular hemoglobin concentration measurement ( mass/volume) 34 g/dL 32-36 Automated erythrocyte distribution width ratio 13.6 % 10.0-14.5 Automated blood platelet count (count/volume) 240 10*3/uL 130-400 Automated blood platelet mean volume measurement 9.9 [foz_us] 7.4-10.4 Automated blood neutrophils/100 leukocytes 47 % 42-75 Automated blood lymphocytes/100 leukocytes 43 % 12-44 Blood monocytes/100 leukocytes 7 % 0-12 Automated blood eosinophils/100 leukocytes 3 % 0-10 Automated blood basophils/100 leukocytes 1 % 0-10 Blood neutrophils automated count (number/volume) 3.3 10*3 1.8-7.8 Blood lymphocytes automated count (number/volume) 3.0 10*3 1.0-4.0 Blood monocytes automated count (number/volume) 0.5 10*3 0.0-1.0 Automated eosinophil count 0.2 10*3/uL 0.0-0.3 Automated blood basophil count (count/volume) 0.0 10*3/uL 0.0-0.1 Comprehensive metabolic panel - 01/05/18 14:09 Serum or plasma sodium measurement (moles/volume) 140 mmol/L 135-145 Serum or plasma potassium measurement (moles/volume) 4.1 mmol/L 3.6-5.0 Serum or plasma chloride measurement (moles/volume) 105 mmol/L 98-107 Carbon dioxide 27 mmol/L 21-32 Serum or plasma anion gap determination (moles/volume) 8 mmol/L 5-14 Serum or plasma urea nitrogen measurement (mass/volume) 6 mg/dL 7-18 Serum or plasma creatinine measurement (mass/volume) 0.85 mg/dL 0.60-1.30 Serum or plasma urea nitrogen/creatinine mass ratio 7 NRG Serum or plasma creatinine measurement with calculation of estimated glomerular filtration rate > NRG Serum or plasma glucose measurement (mass/volume) 191 mg/dL 70-105 Serum or plasma calcium measurement (mass/volume) 9.7 mg/dL 8.5-10.1 Serum or plasma total bilirubin measurement (mass/volume) 0.5 mg/dL 0.1-1.0 Serum or plasma alkaline phosphatase measurement (enzymatic activity/volume) 63 U/L 40-136 Serum or plasma aspartate aminotransferase measurement (enzymatic activity/ volume) 47 U/L 5-34 Serum or plasma alanine aminotransferase measurement (enzymatic activity/volume ) 18 U/L 0-55 Serum or plasma protein measurement (mass/volume) 7.1 g/dL 6.4-8.2 Serum or plasma albumin measurement (mass/volume) 4.1 g/dL 3.2-4.5 Magnesium - 01/05/18 14:09 Magnesium 1.7 mg/dL 1.8-2.4 Complete urinalysis with reflex to culture - 01/05/18 15:00 Urine color determination YELLOW NRG Urine clarity determination CLEAR NRG Urine pH measurement by test strip 7 5-9 Specific gravity of urine by test [...] detection in urine sediment by light microscopy 0-2 NRG Crystals detection in urine sediment by light microscopy NONE NRG Casts detection in urine sediment by light microscopy NONE NRG Mucus detection in urine sediment by light microscopy NEGATIVE NRG Complete urinalysis with reflex to culture NO NRG Encounters ACCT No. Visit Date/Time Discharge Status Pt. Type Provider Facility Loc./Unit Complaint [id number] 01/05/2018 14:03:00 01/05/2018 18:03:00 DIS Emergency ELVIRA GABRIEL, FELIZ Shirley [facility] ER DIZZY, WEAK, LEFT SIDE ARM [id number] 12/30/2017 14:03:00 12/30/2017 23:59:59 CLS Outpatient IRASEMA SMITH MD [facility] RAD WEIGHT LOSS [id number] 12/28/2017 12:15:00 12/28/2017 23:59:59 CLS Outpatient IRASEMA SMITH MD [facility] LAB R63.4 [id number] 12/27/2017 10:21:00 12/27/2017 23:59:59 CLS Outpatient IRASEMA SMITH MD [facility] RAD SCREENING MAMMO [id number] 08/24/2017 04:48:00 08/24/2017 06:11:00 DIS Emergency MURRAY VILLEGAS MD [facility] ER SOB,POSS PNEUMONIA [id number] 03/26/2017 18:05:00 03/27/2017 12:04:00 DIS Inpatient MARLO KHOURY DO [facility] 4TH HEADACHE AND POSSIBLE TIA [id number] 01/18/2017 15:41:00 01/18/2017 18:39:00 DIS Emergency ROSANA ROSADO LEATHER FLESHER [facility] ER SYNCOPE [id number] 12/29/2016 13:01:00 12/29/2016 15:27:00 DIS Emergency YOEL SENA DO [facility] ER FALL BACK/LEG/HEAD INJURY [id number] 11/23/2016 13:55:00 11/23/2016 23:59:59 CLS Outpatient URBAN MALONEY [facility] RAD CVA,HTN,HLP [id number] 05/31/2016 10:52:00 05/31/2016 13:15:00 DIS Emergency RUSSELL SMITH [facility] [facility] ER NAUSEA/VOMITING/UTI [id number] 05/27/2016 09:27:00 05/27/2016 23:59:59 CLS Outpatient IRASEMA SMITH MD Via [facility] RAD WEIGHT LOSS, ABDOMINAL PAIN, NAUSEA [id number] 05/26/2016 12:06:00 05/26/2016 23:59:59 CLS Outpatient IRASEMA SMITH MD [facility] LAB WEIGHT LOSS [id number] 02/11/2016 11:12:00 02/11/2016 23:59:59 CLS Outpatient IRASEMA SMITH MD [facility] RAD FREQUENT INTERMITTENT BRAIN PAIN [id number] 01/16/2016 10:01:00 01/16/2016 23:59:59 CLS Outpatient RHONA SMITH [facility] LAB DIABETES [id number] 12/24/2015 10:22:00 12/24/2015 11:29:00 DIS Emergency ELVIRA GABRIEL, FELIZ Shirley [facility] ER LEFT CALF PAIN [id number] 06/05/2015 12:11:00 06/05/2015 23:59:59 CLS Outpatient IRASEMA SMITH MD [facility] RAD NECK PAIN AND SWELLING [id number] 06/03/2015 08:24:00 06/03/2015 23:59:59 CLS Outpatient TRAVIS JENNINGS MD [facility] CARD CVA,HTN,HLP,CP [id number] 02/15/2015 13:59:00 02/15/2015 23:59:59 CLS Outpatient TRAVIS JENNINGS MD [facility] CARD CVA,HTN,HLP.CP [id number] 02/02/2015 13:49:00 02/06/2015 16:58:00 DIS Inpatient IRASEMA SMITH MD [facility] SURGICAL GENERALIZED WEAKNESS ,UTI,HYPOMAGNESEMIA [id number] 01/26/2015 21:28:00 01/26/2015 23:32:00 DIS Emergency WILLIAM QUINN MD [facility] ER COUGH,SOA [id number] 01/21/2015 11:18:00 01/22/2015 11:45:00 DIS Inpatient IRASEMA SMITH MD [facility] 4TH VOL DEPLETION,COUGH, EXHAUSTION [id number] 01/14/2015 08:28:00 01/14/2015 23:59:59 CLS Outpatient IRASEMA SMITH MD [facility] RAD PAIN IN LEFT BREAST [id number] 12/19/2014 09:39:00 12/19/2014 23:59:59 CLS Outpatient IRASEMA SMITH MD [facility] RAD PAIN BY COMPRESSION [id number] 10/08/2014 12:14:00 10/10/2014 09:55:00 DIS Inpatient IRASEMA SMITH MD [facility] 4TH FEVER [id number] 05/30/2014 07:47:00 05/30/2014 23:59:59 CLS Outpatient TRAVIS JENNINGS MD [facility] CATH CVA [id number] 05/12/2014 10:46:00 05/12/2014 12:45:00 DIS Emergency ANIL DOREVA K [facility] ER NAUSEA BLOOD IN URINE [id number] 03/15/2014 10:43:00 03/15/2014 23:59:59 CLS Outpatient IRASEMA SMITH MD [facility] LAB HYPERGLYCEMIA [id number] 03/13/2014 12:30:00 03/13/2014 23:59:59 CLS Outpatient URBAN MALONEY [facility] LAB CVA,HTN, HYPERLIPIDEMIA [id number] 02/21/2014 11:26:00 02/21/2014 13:27:00 DIS Outpatient TRAVIS JENNINGS MD [facility] CATH CVA,HTN,HYPOTHYROIDISM [id number] 02/16/2014 11:40:00 02/20/2014 12:25:00 DIS Inpatient SELWYN GABRIEL, DUSTIN Vargas [facility] IRF CVA,RENAL INSUFFICIENCY, HYPERGLYCEMIA, [id number] 02/15/2014 00:13:00 02/16/2014 11:40:00 DIS Inpatient IRASEMA SMITH MD [facility] 4TH CVA,RENAL INSUFFICIENCY, HYPERGLYCEMIA,HYPOTHYROIDI [id number] 12/25/2013 07:57:00 12/25/2013 10:50:00 DIS Outpatient MICHELLE KWON MD [facility] DYSPHAGIA [id number] 12/20/2013 07:19:00 12/20/2013 23:59:59 CLS Outpatient MICHELLE KWON MD [facility] PREOP DYSPHAGIA [id number] 07/24/2013 07:46:00 07/24/2013 23:59:59 CLS Outpatient IRASEMA SMITH MD [facility] RAD DECREASING VISION, HX CVA 1 YEAR AGO [id number] 07/05/2013 14:55:00 07/07/2013 10:05:00 DIS Inpatient IRASEMA SMITH MD [facility] CSD CHEST PAIN [id number] 05/22/2013 07:49:00 05/22/2013 23:59:59 CLS Outpatient MICHELLE KWON MD [facility] SCREENING,ABD PAIN [id number] 05/18/2013 07:16:00 05/18/2013 23:59:59 CLS Outpatient MICHELLE KWON MD [facility] PREOP SCREENING/ ABDOMINAL PAIN [id number] 10/08/2014 12:11:00 Document Registration [id number] 10/08/2014 12:10:00 Document Registration [id number] 09/14/2012 14:35:00 Document Registration [id number] 06/15/2012 14:45:00 Document Registration [id number] 06/15/2012 11:51:00 Document Registration [id number] 05/24/2012 16:27:00 Document Registration [id number] 2012 11:25:00 Document Registration [id number] 04/01/2012 12:31:00 Document Registration [id number] 11/26/2011 16:12:00 Document Registration [id number] 04/06/2011 16:01:00 Document Registration [id number] 03/04/2011 13:28:00 Document Registration [id number] 11/21/2010 07:31:00 Document Registration [id number] 11/10/2010 11:00:00 Document Registration [id number] 10/29/2010 15:00:00 Document Registration [id number] 10/23/2009 08:03:00 Document Registration [id number] 10/18/2009 07:55:00 Document Registration [id number] 09/25/2009 15:20:00 Document Registration [id number] 08/02/2009 10:40:00 Document Registration [id number] 06/07/2009 11:07:00 Document Registration [id number] 05/08/2009 09:07:00 Document Registration [id number] 06/05/2015 12:12:42 ACT Document Registration
== END 2018-01-05 18:03 | disposition home or self-care (01) ==
LOC: EDUNIT# 14:01 → ER 14:03
DX: R51 Headache (principal); R20.2 Paresthesia of skin; I16.1 Hypertensive emergency; R42 Dizziness and giddiness; I10 Essential (primary) hypertension; E78.00 Pure hypercholesterolemia, unspecified; J45.909 Unspecified asthma, uncomplicated; G43.909 Migraine, unspecified, not intractable, without status migrainosus; E03.9 Hypothyroidism, unspecified; E11.9 Type 2 diabetes mellitus without complications; F41.9 Anxiety disorder, unspecified; F32.9 Major depressive disorder, single episode, unspecified; K21.9 Gastro-esophageal reflux disease without esophagitis; Z87.19 Personal history of other diseases of the digestive system; Z87.440 Personal history of urinary (tract) infections; Z90.49 Acquired absence of other specified parts of digestive tract; Z82.49 Family history of ischemic heart disease and other diseases of the circulatory system; Z91.14 Patient's other noncompliance with medication regimen; Z88.5 Allergy status to narcotic agent; Z88.8 Allergy status to other drugs, medicaments and biological substances; Z88.7 Allergy status to serum and vaccine; Z79.51 Long term (current) use of inhaled steroids; Z79.84 Long term (current) use of oral hypoglycemic drugs; Z79.52 Long term (current) use of systemic steroids; Z79.02 Long term (current) use of antithrombotics/antiplatelets; Z87.891 Personal history of nicotine dependence; Z90.710 Acquired absence of both cervix and uterus; Z95.810 Presence of automatic (implantable) cardiac defibrillator; Z86.718 Personal history of other venous thrombosis and embolism; Z86.79 Personal history of other diseases of the circulatory system
CPT/HCPCS: 36415; 70450; 70496; 70498; 80053; 81000; 83735; 84439; 84443; 85025; 93005; 93041; 96361; 96374; 96375

== ENCOUNTER → 2018-05-25 | Outpatient (CLI) | payer MEDICARE, MEDICAID ==
[~2018-05-25] MED LIST changes: -BENZ-13 PO; +BENZ100C18 PO
[2018-05-25 10:42] LABS: BASOPHILS # (AUTO) 0.1 10^3/uL (0.0-0.1); BASOPHILS % (AUTO) 1 % (0-10); EOSINOPHILS # (AUTO) 0.3 10^3/uL (0.0-0.3); EOSINOPHILS % (AUTO) 6 % (0-10); HEMATOCRIT 36 % (35-52); HEMOGLOBIN 12.1 G/DL (11.5-16.0); LYMPHOCYTES # (AUTO) 1.6 X 10^3 (1.0-4.0); LYMPHOCYTES % (AUTO) 36 % (12-44); MEAN CORPUSCULAR HEMOGLOBIN 31 PG (25-34); MEAN CORPUSCULAR HGB CONC 33 G/DL (32-36); MEAN CORPUSCULAR VOLUME 92 FL (80-99); MEAN PLATELET VOLUME 9.3 FL (7.4-10.4); MONOCYTES # (AUTO) 0.3 X 10^3 (0.0-1.0); MONOCYTES % (AUTO) 7 % (0-12); NEUTROPHILS # (AUTO) 2.2 X 10^3 (1.8-7.8); NEUTROPHILS % (AUTO) 50 % (42-75); PLATELET COUNT 253 10^3/uL (130-400); RED BLOOD COUNT 3.93 10^6/uL (4.35-5.85); RED CELL DISTRIBUTION WIDTH 12.6 % (10.0-14.5); WHITE BLOOD COUNT 4.5 10^3/uL (4.3-11.0)
[2018-05-25 11:03] LABS: ALBUMIN 4.1 GM/DL (3.2-4.5); BILIRUBIN,TOTAL 0.3 MG/DL (0.1-1.0); CALCIUM 9.3 MG/DL (8.5-10.1); TOTAL PROTEIN 6.6 GM/DL (6.4-8.2)
== END ==
LOC: LAB 10:26
PROVIDERS: ATTEND Nurse Practitioner Family
DX: Z00.00 Encounter for general adult medical examination without abnormal findings (principal); E11.01 Type 2 diabetes mellitus with hyperosmolarity with coma; E78.2 Mixed hyperlipidemia; I10 Essential (primary) hypertension; Z79.4 Long term (current) use of insulin
CPT/HCPCS: 36415; 80053; 80061; 83036; 84443; 85025

== ENCOUNTER → 2018-07-14 | Outpatient (CLI) | payer MEDICARE, MEDICAID ==
--- NOTE | 2018-07-14 16:55 | Diagnostic Imaging Report ---
Indication: Breast pain. Comparison is made with prior mammogram from 12/27/2017 and 01/14/2015. 2-D and 3-D unilateral left diagnostic mammography was performed with CAD. Scattered fibroglandular densities in the left breast. There are benign calcifications. No mass or malignant-appearing microcalcifications are seen. Axilla unremarkable Impression: BI-RADS 0 No mammographic features suspicious for malignancy are identified. Even so, sonographic interrogation of the left breast at the area of pain is recommended and will be performed today. ACR BI-RADS Category 0: Incomplete. (Needs additional imaging evaluation). Result letter will be mailed to the patient. Note: At least 10% of breast cancer is not imaged by mammography. Dictated by: Dictated on workstation # [id number]
--- NOTE | 2018-07-14 18:11 | Diagnostic Imaging Report ---
INDICATION: Left breast pain. Correlation is made with diagnostic mammogram earlier the same day. FINDINGS: Sonographic interrogation of all four quadrants of the left breast as well as the retroareolar region was performed. No sonographic abnormality is seen. No solid or cystic breast mass is detected. IMPRESSION: No sonographic abnormality is identified to account for patient's left breast pain. Clinical follow-up is recommended. ACR BI-RADS Category 1: Negative. Dictated by: Dictated on workstation # [id number]
== END ==
LOC: RAD 08:43
PROVIDERS: ATTEND Family Medicine
DX: N64.4 Mastodynia (principal)
CPT/HCPCS: 76641

== ENCOUNTER → 2019-01-17 | Outpatient (CLI) | payer MEDICARE, MEDICAID ==
--- NOTE | 2019-01-17 13:31 | Diagnostic Imaging Report ---
INDICATION: Status post fall earlier in the day, pain. TECHNIQUE: 2 views of the right hip. CORRELATION STUDY: None FINDINGS: Images of the hip demonstrate no evidence for acute fracture. Alignment is anatomic. The femoral head acetabular relationship is unremarkable. The bony trabecular pattern is intact. IMPRESSION: 1. Negative for acute bony abnormality of the right hip. Dictated by: Dictated on workstation # [id number]
--- NOTE | 2019-01-17 13:55 | Diagnostic Imaging Report ---
INDICATION: Status post fall, pain. TECHNIQUE: Two view chest 11:22 AM CORRELATION STUDY: 08/24/2017 FINDINGS: The heart size, mediastinal configuration and pulmonary vasculature are within normal limits. The lungs are clear with no consolidating infiltrate. There is no significant pleural effusion or pneumothorax. Cervical spine fusion hardware present. A previous noted recorder device over the lower mid chest appears to have been removed. Austin screw over the right humeral head. Mildly advanced degenerative changes of the thoracic spine. IMPRESSION: 1. No radiographic evidence for acute abnormality of the chest. Dictated by: Dictated on workstation # [id number]
== END ==
LOC: RAD 10:55
PROVIDERS: ATTEND Family Medicine
DX: M25.551 Pain in right hip (principal); R07.9 Chest pain, unspecified; W19.XXXA Unspecified fall, initial encounter; Z98.1 Arthrodesis status
CPT/HCPCS: 71046; 73502

== ENCOUNTER → 2019-01-31 | Outpatient (CLI) | payer MEDICARE, MEDICAID ==
--- NOTE | 2019-01-31 14:49 | Diagnostic Imaging Report ---
PROCEDURE: US left lower extremity venous. TECHNIQUE: Multiple real-time grayscale images were obtained over the left lower extremity in various projections. Additional duplex Doppler and color Doppler images were also obtained. INDICATION: Left leg pain. There is no evidence of left lower extremity DVT. Left lower extremity deep venous system shows normal compressibility with normal response to augmentation and Valsalva. No fluid collection or mass is seen. Impression: No evidence of left lower extremity DVT. Dictated by: Dictated on workstation # [id number]
[2019-01-31 14:51] LABS: BASOPHILS # (AUTO) 0.1 10^3/uL (0.0-0.1); BASOPHILS % (AUTO) 1 % (0-10); EOSINOPHILS # (AUTO) 0.3 10^3/uL (0.0-0.3); EOSINOPHILS % (AUTO) 5 % (0-10); HEMATOCRIT 36 % (35-52); HEMOGLOBIN 12.1 G/DL (11.5-16.0); LYMPHOCYTES # (AUTO) 2.4 X 10^3 (1.0-4.0); LYMPHOCYTES % (AUTO) 35 % (12-44); MEAN CORPUSCULAR HEMOGLOBIN 30 PG (25-34); MEAN CORPUSCULAR HGB CONC 34 G/DL (32-36); MEAN CORPUSCULAR VOLUME 89 FL (80-99); MEAN PLATELET VOLUME 9.8 FL (7.4-10.4); MONOCYTES # (AUTO) 0.5 X 10^3 (0.0-1.0); MONOCYTES % (AUTO) 7 % (0-12); NEUTROPHILS # (AUTO) 3.5 X 10^3 (1.8-7.8); NEUTROPHILS % (AUTO) 52 % (42-75); PLATELET COUNT 275 10^3/uL (130-400); RED CELL DISTRIBUTION WIDTH 12.1 % (10.0-14.5); WHITE BLOOD COUNT 6.7 10^3/uL (4.3-11.0)
[2019-01-31 15:13] LABS: ALBUMIN 4.3 GM/DL (3.2-4.5); BILIRUBIN,TOTAL 0.3 MG/DL (0.1-1.0); CALCIUM 9.5 MG/DL (8.5-10.1); CREATININE SERUM 1.1 MG/DL (0.60-1.30); POTASSIUM 4.9 MMOL/L (3.6-5.0); TOTAL PROTEIN 6.8 GM/DL (6.4-8.2)
--- NOTE | 2019-01-31 18:01 | Diagnostic Imaging Report ---
INDICATION: One week post fall with pain and contusion of the coccyx region. TECHNIQUE: AP and lateral views of sacrum and coccyx 2:19 p.m. CORRELATION STUDY: None FINDINGS: There is very slight asymmetric offset of the cortex anteriorly at approximately the S3 level. Subtle fracture is not excluded. The remainder of the alignment is otherwise anatomic. The sacroiliac joints appear to be maintained without evidence for erosion or effusion. Moderate amount of overlying bowel gas and stool obscures detail. Advanced degenerative changes with disc space narrowing at L5-S1 level. Visualized portions of the bilateral hips are unremarkable. IMPRESSION: 1. Slight asymmetric offset at the S3 level. This may be normal anatomic variation, the possibility of a nondisplaced fracture is not excluded. Correlation with symptoms at site of pain recommended. Dictated on workstation # [id number]
== END ==
LOC: RAD 14:01
PROVIDERS: ATTEND Family Medicine
DX: S30.0XXA Contusion of lower back and pelvis, initial encounter (principal); M79.605 Pain in left leg; E10.21 Type 1 diabetes mellitus with diabetic nephropathy; E03.9 Hypothyroidism, unspecified; I10 Essential (primary) hypertension; E78.2 Mixed hyperlipidemia; W19.XXXA Unspecified fall, initial encounter
CPT/HCPCS: 36415; 72220; 80053; 80061; 82043; 83036; 84443; 85025

== ENCOUNTER → 2019-04-11 | Outpatient (CLI) | payer MEDICARE, MEDICAID ==
--- NOTE | 2019-04-11 14:59 | Diagnostic Imaging Report ---
INDICATION: Routine screening. COMPARISON: 12/27/2017 and 01/14/2015. TECHNIQUE: 2D and 3D bilateral screening mammography was performed with CAD. FINDINGS: Both breasts are heterogeneously dense, limiting the sensitivity of mammography. Benign calcifications are noted bilaterally. No dominant mass or malignant appearing microcalcifications are seen. The axillae are unremarkable. IMPRESSION: No mammographic features suspicious for malignancy are identified. ACR BI-RADS Category 2: Benign findings. Result letter will be mailed to the patient. Note: At least 10% of breast cancer is not imaged by mammography. Dictated by: Dictated on workstation # [id number]
== END ==
LOC: RAD 10:37
PROVIDERS: ATTEND Family Medicine
DX: Z12.31 Encounter for screening mammogram for malignant neoplasm of breast (principal); N63.0 Unspecified lump in unspecified breast
CPT/HCPCS: 77067

== ENCOUNTER → 2019-10-02 | Outpatient (CLI) | payer MEDICARE, MEDICAID ==
[~2019-10-02] MED LIST changes: -TRAM50TA2 PO; +TRM50T PO
[2019-10-02 15:04] LABS: ALANINE AMINOTRANSFERASE 9 U/L (0-55); ALBUMIN 3.9 GM/DL (3.2-4.5); ALKALINE PHOSPHATASE 54 U/L (40-136); BILIRUBIN,TOTAL 0.2 MG/DL (0.1-1.0); BUN/CREATININE RATIO 9; CARBON DIOXIDE 28 MMOL/L (21-32); CHLORIDE 106 MMOL/L (98-107); CHOLESTEROL 156 MG/DL (< 200); CREATININE SERUM 0.87 MG/DL (0.60-1.30); GFR ESTIMATED > 60; GLUCOSE 152 MG/DL (70-105); HDL CHOLESTEROL 48 MG/DL (40-60); POTASSIUM 4.3 MMOL/L (3.6-5.0); SODIUM 139 MMOL/L (135-145); TOTAL PROTEIN 6.3 GM/DL (6.4-8.2); TRIGLYCERIDES 137 MG/DL (<150); VLDL CHOLESTEROL 27 MG/DL (5-40)
== END ==
LOC: CARD 14:01
PROVIDERS: ATTEND Physician Assistant
DX: I08.1 Rheumatic disorders of both mitral and tricuspid valves (principal); I63.9 Cerebral infarction, unspecified; I10 Essential (primary) hypertension; E78.5 Hyperlipidemia, unspecified; I49.1 Atrial premature depolarization
CPT/HCPCS: 36415; 80053; 80061; 93306

== ENCOUNTER → 2019-11-01 | Outpatient (CLI) | payer MEDICARE, MEDICAID ==
[~2019-11-01] VITALS: Ht 160 cm; Wt 67.0 kg
[~2019-11-01] MED LIST changes: +REGADENOSON 0.4 MG/5 ML SYR (LEXISCAN) IV ONE
[2019-11-01] MEDS: CATHETER FLUSH 10 ML SYR IV PRN ×2 (08:59→09:56)
[2019-11-01 09:46] VITALS: BP 124/76
--- NOTE | 2019-11-01 16:52 | STRESS TEST ---
DATE OF SERVICE: 11/01/2019 LEXISCAN MYOVIEW STRESS TEST REPORT Baseline heart rate 61, baseline blood pressure 124/76. Baseline EKG is sinus rhythm with no ischemic changes. In summary, the patient received 10.66 mCi of technetium-99 Myoview and the resting images were obtained. Then, the patient received 0.4 mg of Lexiscan followed by 30.9 mCi of technetium-99 Myoview. Throughout the test, there were no EKG changes. The resting and stress images were reviewed and compared in the short axis, horizontal long axis, and vertical long axis views. Review of the images showed breast attenuation with typical female pattern with no ischemia or infarction. SSS 1, SDS 1. TID value 1.04. On the gated images, the left ventricle is normal in size, normal contractility, calculated ejection fraction 71%. CONCLUSION: 1. The patient tolerated Lexiscan well. 2. Breast attenuation with typical female pattern with no ischemia or infarction on SPECT images. 3. Normal left ventricular size and contractility, calculated ejection fraction is 71%. Job ID: [id number] DocumentID: [id number] Dictated Date: 11/01/2019 14:36:47 Instructional Technology Coach Date: 11/01/2019 16:51:48 Dictated By: TRAVIS JENNINGS MD
== END ==
LOC: CARD 08:40
PROVIDERS: ATTEND Physician Assistant
DX: I63.9 Cerebral infarction, unspecified (principal); I10 Essential (primary) hypertension; E78.2 Mixed hyperlipidemia; I49.1 Atrial premature depolarization
CPT/HCPCS: 78452; 93017

== ENCOUNTER → 2023-03-08 | Outpatient (CLI) | payer MEDICARE, MEDICAID ==
[~2023-03-08] MED LIST changes: -REGADENOSON 0.4 MG/5 ML SYR (LEXISCAN) IV ONE
--- NOTE | 2023-03-08 14:41 | Diagnostic Imaging Report ---
PROCEDURE: MR imaging of the brain without contrast. TECHNIQUE: Multiplanar, multisequence MR imaging of the brain was performed without contrast. INDICATION: History of stroke. COMPARISON: CTA head and neck on 01/05/2018. MRI brain on 02/15/2014. FINDINGS: A small focus of acute/subacute ischemia is seen in the inferior aspect of the right cerebellum. No associated hemorrhage or mass effect. There is an additional small amount of acute/subacute ischemia within the right parieto-occipital region. This is in an area of prior infarct. Additional old infarcts are seen in the left parieto-occipital region and bilateral cerebellar hemispheres. Chronic microvascular disease is scattered in the periventricular and subcortical white matter. The basilar cisterns are symmetric and unremarkable. The sellar and suprasellar regions have a normal appearance. Mucosal thickening is seen throughout the paranasal sinuses with fluid level in the right maxillary sinus. The mastoid air cells are clear. The globes and orbits are symmetric and unremarkable. The scalp and calvarium have a normal appearance. IMPRESSION: 1. Small areas of acute/subacute ischemia involving the inferior aspect of the right cerebellum and right parieto-occipital region. No associated hemorrhage or mass effect. 2. 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 Smaller chronic infarcts are seen in the right parieto-occipital region and bilateral cerebellar hemispheres. 3. Mucosal thickening in the paranasal sinuses with a small fluid level in the right maxillary sinus. Findings can be seen with acute sinusitis. Dictated by: Dictated on workstation # [id number]
== END ==
LOC: RAD 12:42
PROVIDERS: ATTEND Nurse Practitioner Family
DX: I67.82 Cerebral ischemia (principal); I63.9 Cerebral infarction, unspecified; G93.89 Other specified disorders of brain; J01.00 Acute maxillary sinusitis, unspecified
CPT/HCPCS: 70551

== ENCOUNTER → 2023-06-10 | Outpatient (CLI) | payer MEDICARE, MEDICAID | LOC: CANPRECLI → CARD 12:54 | PROVIDERS: ATTEND Internal Medicine Cardiovascular Disease | DX: I11.0 Hypertensive heart disease with heart failure (principal); I50.20 Unspecified systolic (congestive) heart failure; I34.0 Nonrheumatic mitral (valve) insufficiency; I36.1 Nonrheumatic tricuspid (valve) insufficiency | CPT/HCPCS: 93306 ==